=== PATIENT | female | born 2000 | race Caucasian/White ===

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

== ENCOUNTER 2022-01-18 18:08 | Observation (INO) ==
[2022-01-18] MEDS ORDERED: ONDANSETRON INJ 2 MG/ML 2 ML VIAL IV STA (18:29)
[2022-01-18] MEDS ORDERED: MoRPHine SULFATE 10 MG/ML CARP/VIAL IV STA (18:29)
[2022-01-18] MEDS ORDERED: ACETAMINOPHEN 1000 MG/100 ML IV IV STA (18:29)
[2022-01-18] MEDS ORDERED: LACTATED RINGER'S 1,000 ML IV STA (18:29)
[2022-01-18] MEDS ORDERED: PROMETHAZINE 12.5 MG/50.5 ML BAG IV STA (18:29)
[2022-01-18] MEDS ORDERED: SODIUM CHLORIDE 0.9% 1000ML 1,000 ML IV SCH (18:30)
[2022-01-18] MEDS ORDERED: KETOROLAC TROMETHAMINE 15 MG/ML VIAL IV STA (18:34)
--- NOTE | 2022-01-18 18:45 | Emergency Department Note ---
Impression & Plan Bilateral flank pain, Vomiting, Acute dehydration, Fever, Hypomagnesemia, Failure of outpatient treatment, Tachycardia ED Provider Note NAME: YUE LEONARDO AGE: 21 SEX: F : 2000 ARRIVES VIA: Walk-In INFORMANT: [Patient][family] ED PROVIDER(S): [Blaise Plasencia MD] CHIEF COMPLAINT: Vomiting HISTORY OF PRESENT ILLNESS: The patient is a 21-year-old female who presents to the ER with 5 days of vomiting, fever, stuffy nose, sore throat and chills. She also had right flank pain that has now spread to both flanks. The pain in the back is severe. The patient was seen here early this morning/last night. CT of the abdomen and pelvis was unremarkable. White count was 13. Strep testing, viral testing was unremarkable. She was diagnosed with a likely generalized viral illness. She did receive IV saline during her stay, she was given pain medication. She left feeling improved. When the patient returned home, she began to feel ill again. She began vomiting and she has vomited all day. She now has severe back pain that is a 10/10. She has a stuffy nose. She is nauseated. She feels dehydrated. She has not been able to keep any medications down. As per the patient's family, she had a similar episode to today's a month or so ago, she required a hospital stay, nothing was found to explain her presentation, her illness was diagnosed as viral. REVIEW OF SYSTEMS: See HPI for pertinent positives and negatives. A total of ten systems were reviewed and were otherwise negative. PMHx/PSHx: See Below SOCIAL HISTORY: See Below. PHYSICAL EXAM: GENERAL: Patient is in distressed, screaming, vomiting. HEENT: No acute trauma, normocephalic atraumatic, mucous membranes moist, significant nasal congestion, no scleral icterus. Throat is mildly erythematous without exudate. NECK: No stridor, moderate bilateral anterior cervical adenopathy, no meningismus, trachea is midline. LUNGS: Clear to auscultation bilaterally, no wheeze, no rhonchi, breath sounds equal. Hyperventilating. HEART: Tachycardic, no murmurs, regular rhythm. ABDOMEN: Soft, mildly diffusely tender, bowel sounds positive, no hernias, no peritonitis. EXTREMITIES: No cyanosis or edema, full range of motion of all the joints without pain or difficulty, no signs for acute trauma. NEUROLOGIC: Oriented x 3, no acute motor or sensory deficits, no focal weakness. SKIN: No rash, no jaundice, no diaphoresis. Back: Tender about the mid flank area bilaterally. No rash. DIFFERENTIAL DIAGNOSIS: Pyelonephritis, viral illness, dehydration, rhabdomyolysis, renal or liver failure, pneumonia, electrolyte imbalance, anemia, UTI, , cyclic vomit ing syndrome, among others. EMERGENCY DEPARTMENT COURSE/PROCEDURES: ECG: Indication was tachycardia. The ECG shows a sinus tachycardia with some baseline artifact. The rate is 125. There is no ST elevation, no PVCs P the QTc is 458 Continuous Cardiac Monitoring: An order was placed for continuous cardiac monitoring. The monitor shows a rate of 136 with sinus tachycardia. Critical Care Note: I have personally spent 46 minutes of critical care time in the direct management of this patient. This includes bedside care, interpretation of diagnostic studies, and testing, discussion with consultants, patient, and family members, and other required patient management activities. This 46 minutes is in excess of all separately billable procedures. MEDICAL DECISION MAKING: There was a mild leukocytosis at 13,000, this could be consistent with infection or the stress of her situation. There is a normal hemoglobin and platelet count. Renal panel testing showed a lower CO2 and a slight anion gap. Magnesium was low at 1.6. No kidney failure. Total CK was not elevated. No concerning liver enzyme elevation. The patient appeared to be in a euthyroid state. ECG showed a sinus tachycardia, no obvious ischemia. Cardiac enzyme testing x1 is not consistent with acute cardiac injury. Urinalysis showed ketones consistent with dehydration, no infection. testing returned negative. Urine tox was negative. Bio fire screening showed adenovirus. Chest x-ray did not show pneumonia or CHF. On exam, the patient was in significant distress, vomiting, screaming in pain. She was tachycardic. The patient was aggressively managed. She received IV saline 1 L. She was given IV lactated Ringer's 1 L. She was given IV Phenergan, IV Zofran, IV morph ine. She was given IV magnesium and IV Toradol. She received IV ceftriaxone as antibiotic coverage. The patient looks markedly improved, her tachycardia has resolved. She is much more comfortable and no longer vomiting. The patient requires a hospital stay. She requires further IV hydration and further care. She appears to be having a severe reaction from this adenovirus infection. I did speak with the patient and her mother, the on-call hospitalist was consulted. Past Med/Surg History Medical History No significant past medical history Surgical History History of chest tube placement as a child Social History Smoking Status: Never smoker Hx Alcohol Use: Yes Alcohol type: beer, wine and hard liquor Hx Substance Use: No Preferred Language: Czech Communication Ability: Effective Judge Clerk Required: No Beliefs That Will Affect Care: None Current Living Situation: Other Current Living Situation Comment: with roommate Feels Safe at Home: Yes Safety Concerns: Feels Safe At This Time Allergies Allergies Allergy/AdvReac Type Severity Reaction Status Date / Time doxycycline Allergy Intermediate Rash Verified 01/18/22 01:10 lactose Allergy Intermediate Gastrointestinal Verified 01/18/22 01:10 Upset Home Meds Home Medications Medication Instructions Recorded Confirmed norgestimate 0.18 mg/0.215 mg/0.25 1 tab PO DAILY 01/18/22 01/18/22 mg-ethinyl estradiol 25 mcg tablet (Tri-Lo-Radha) Previous Rx's Medication Instructions Recorded ondansetron HCl 4 mg tablet 4 mg PO Q8H PRN 3 Days #9 tab 01/18/22 Results & Data (ED) Vital Signs Vital Signs - 24 hr 01/18/22 18:14 01/18/22 18:54 01/18/22 19:57 Temperature 37.6 C H Temperature Source Temporal Artery Scan Pulse Rate 143 H 122 H 92 H Respiratory Rate 22 20 16 Respiratory Effort / Characteristics Non-Labored Spontaneous Respiratory Depth Normal Blood Pressure 116/77 119/73 107/57 L Blood Pressure Mean 90 88 73 Blood Pressure Position Sitting Pulse Oximetry 93 100 98 Oxygen Delivery Method Room Air Sepsis Recent Fever Within 48 Hours Yes Sepsis New/Unexplained Change in Mental Status No Sepsis Action Taken by Nursing Physician Notified 01/18/22 20:00 01/18/22 20:30 01/18/22 21:00 Temperature Temperature Source Pulse Rate 91 H 89 78 Respiratory Rate 16 18 16 Respiratory Effort / Characteristics Respiratory Depth Blood Pressure 104/56 L 98/50 L 101/60 Blood Pressure Mean 72 66 73 Blood Pressure Position Pulse Oximetry 99 99 97 Oxygen Delivery Method Sepsis Recent Fever Within 48 Hours Sepsis New/Unexplained Change in Mental Status Sepsis Action Taken by Nursing 01/18/22 21:30 01/18/22 22:00 Temperature Temperature Source Pulse Rate 92 H 78 Respiratory Rate 18 16 Respiratory Effort / Characteristics Respiratory Depth Blood Pressure 99/59 L 99/50 L Blood Pressure Mean 72 66 Blood Pressure Position Pulse Oximetry 98 96 Oxygen Delivery Method Sepsis Recent Fever Within 48 Hours Sepsis New/Unexplained Change in Mental Status Sepsis Action Taken by Longterm Medications Current Medication List: was personally reviewed by me Laboratory Data Attestation: I reviewed the patient's lab results. Result diagrams: 01/18/22 18:41 01/18/22 18:41 Lab Results 01/18/22 01/18/22 01/18/22 Range/Units 18:41 18:41 18:41 WBC 13.21 H (4.8-10.8) K/uL RBC 4.27 (4.2-5.4) M/uL Hgb 13.4 (12.0-16.0) g/dL Hct 36.9 L (37-47) % MCV 86.4 (80-100) fL MCH 31.4 (25-34) pg MCHC 36.3 H (32-36) g/dL RDW Std Deviation 39.7 (36.4-46.3) fL RDW Coeff of Juan 12.4 (11.5-14.5) % Plt Count 345 (130-400) K/uL MPV 10.3 (7.4-10.4) fL Immature Gran % (Auto) 0.4 % Neut % (Auto) 72.6 % Lymph % (Auto) 19.9 % Dewey % (Auto) 6.6 % Eos % (Auto) 0.3 % Baso % (Auto) 0.2 % Neut # (Auto) 9.59 H (1.4-6.5) K/uL Lymph # (Auto) 2.63 (1.2-3.4) K/uL Dewey # (Auto) 0.87 H (0.11-0.59) K/uL Eos # (Auto) 0.04 (0-0.5) K/uL Baso # (Auto) 0.03 (0-0.2) K/uL Immature Gran # (Auto) 0.05 H (0.00-0.02) K/uL Sodium 136 (136-145) mmol/L Potassium 3.6 (3.5-5.1) mmol/L Chloride 99 (98-107) mmol/L Carbon Dioxide 20 L (21-32) mmol/L Anion Gap 17 H (3-11) BUN 6 (6-23) mg/dl Creatinine 0.66 (0.6-1.2) mg/dl Est Cr Clr Drug Dosing 123.4 ml/min Est GFR ( Amer) 148.4 ml/min Est GFR (Non-Af Amer) 128.1 ml/min BUN/Creatinine Ratio 9.1 L (10-20) Glucose 85 (70-99(Fasting)) mg/dl Lactate (0.4-2.0) mmol/L Calcium 9.2 (8.5-10.1) mg/dl Magnesium 1.6 L (1.7-2.4) mg/dl Total Bilirubin 0.5 (0.2-1.0) mg/dl AST 19 (13-39) U/L ALT 11 (7-52) U/L Alkaline Phosphatase 49 (34-104) U/L Total Creatine Kinase 173 (26-192) U/L Troponin I < 0.03 (0-0.04) ng/ml Total Protein 7.6 (6.0-8.3) gm/dl Albumin 4.2 (3.4-5.0) gm/dl Globulin 3.4 (2.5-4.0) gm/dl Albumin/Globulin Ratio 1.2 (0.9-2) TSH (0.300-4.500) uIu/ml Urine Color Urine Appearance (Clear) Urine pH (4.5-7.5) Ur Specific [place] (1.000-1.030) Urine Protein (Negative) Urine Glucose (UA) (Negative) Urine Ketones (Negative) Urine Blood (Negative) Urine Nitrite (Negative) Urine Bilirubin (Negative) Urine Urobilinogen (Negative) Ur Leukocyte Esterase (Negative) Urine WBC (Auto) (0-5) /hpf Urine RBC (Auto) (0-4) /hpf U Hyaline Cast (Auto) (0-5) /lpf U Epithel Cells (Auto) (0-5) /lpf Urine Bacteria (Auto) (Negative) Ur Renal Epithelial Cell Urine Test (Negative) Urine Opiates Screen (Neg) Ur Methadone, Qual (Neg) Urine Barbiturates (Neg) Ur Phencyclidine (PCP) (Neg) U Amphetamin/Meth Scrn (Neg) MDMA (Ecstasy) Screen (Neg) U Benzodiazepines Scrn (Neg) Ur Cocaine Metabolite (Neg) U Marijuana (THC) Screen (Neg) Adenovirus (PCR) (NotDetected) B. pertussis DNA (PCR) (NotDetected) B.parapertussis DNA PCR (NotDetected) Lyme Disease IgG Ab Negative (Negative) Lyme Disease IgM Ab Negative (Negative) C. pneumoniae DNA (PCR) (NotDetected) Coronavirus OC43 (PCR) (NotDetected) Coronavirus HKU1 (PCR) (NotDetected) Coronavirus 229E (PCR) (NotDetected) SARS-CoV-2 (PCR) (NotDetected) Coronavirus NL63 (PCR) (NotDetected) Human Metapneumovir PCR (NotDetected) Influenza Type A (PCR) (NotDetected) Influenza Type B (PCR) (NotDetected) M. pneumoniae (PCR) (NotDetected) Parainfluenza 1 (PCR) (NotDetected) Parainfluenza 2 (PCR) (NotDetected) Parainfluenza 3 (PCR) (NotDetected) Parainfluenza 4 (PCR) (NotDetected) RSV (PCR) (NotDetected) Entero/Rhino (PCR) (NotDetected) 01/18/22 01/18/22 01/18/22 Range/Units 18:41 19:23 19:28 WBC (4.8-10.8) K/uL RBC (4.2-5.4) M/uL Hgb (12.0-16.0) g/dL Hct (37-47) % MCV (80-100) fL MCH (25-34) pg MCHC (32-36) g/dL RDW Std Deviation (36.4-46.3) fL RDW Coeff of Juan (11.5-14.5) % Plt Count (130-400) K/uL MPV (7.4-10.4) fL Immature Gran % (Auto) % Neut % (Auto) % Lymph % (Auto) % [place]wey % (Auto) % Eos % (Auto) % Baso % (Auto) % Neut # (Auto) (1.4-6.5) K/uL Lymph # (Auto) (1.2-3.4) K/uL [place]wey # (Auto) (0.11-0.59) K/uL Eos # (Auto) (0-0.5) K/uL Baso # (Auto) (0-0.2) K/uL Immature Gran # (Auto) (0.00-0.02) K/uL Sodium (136-145) mmol/L Potassium (3.5-5.1) mmol/L Chloride (98-107) mmol/L Carbon Dioxide (21-32) mmol/L Anion Gap (3-11) BUN (6-23) mg/dl Creatinine (0.6-1.2) mg/dl Est Cr Clr Drug Dosing ml/min Est GFR ( Amer) ml/min Est GFR (Non-Af Amer) ml/min BUN/Creatinine Ratio (10-20) Glucose (70-99(Fasting)) mg/dl Lactate 0.7 (0.4-2.0) mmol/L Calcium (8.5-10.1) mg/dl Magnesium (1.7-2.4) mg/dl Total Bilirubin (0.2-1.0) mg/dl AST (13-39) U/L ALT (7-52) U/L Alkaline Phosphatase (34-104) U/L Total Creatine Kinase (26-192) U/L Troponin I (0-0.04) ng/ml Total Protein (6.0-8.3) gm/dl Albumin (3.4-5.0) gm/dl Globulin (2.5-4.0) gm/dl Albumin/Globulin Ratio (0.9-2) TSH 1.200 (0.300-4.500) uIu/ml Urine Color Urine Appearance (Clear) Urine pH (4.5-7.5) Ur Specific [place] (1.000-1.030) Urine Protein (Negative) Urine Glucose (UA) (Negative) Urine Ketones (Negative) Urine Blood (Negative) Urine Nitrite (Negative) Urine Bilirubin (Negative) Urine Urobilinogen (Negative) Ur Leukocyte Esterase (Negative) Urine WBC (Auto) (0-5) /hpf Urine RBC (Auto) (0-4) /hpf U Hyaline Cast (Auto) (0-5) /lpf U Epithel Cells (Auto) (0-5) /lpf Urine Bacteria (Auto) (Negative) Ur Renal Epithelial Cell Urine Test (Negative) Urine Opiates Screen (Neg) Ur Methadone, Qual (Neg) Urine Barbiturates (Neg) Ur Phencyclidine (PCP) (Neg) U Amphetamin/Meth Scrn (Neg) MDMA (Ecstasy) Screen (Neg) U Benzodiazepines Scrn (Neg) Ur Cocaine Metabolite (Neg) U Marijuana (THC) Screen (Neg) Adenovirus (PCR) DETECTED A* (NotDetected) B. pertussis DNA (PCR) Not Detected (NotDetected) B.parapertussis DNA PCR Not Detected (NotDetected) Lyme Disease IgG Ab (Negative) Lyme Disease IgM Ab (Negative) C. pneumoniae DNA (PCR) Not Detected (NotDetected) Coronavirus OC43 (PCR) Not Detected (NotDetected) Coronavirus HKU1 (PCR) Not Detected (NotDetected) Coronavirus 229E (PCR) Not Detected (NotDetected) SARS-CoV-2 (PCR) Not Detected (NotDetected) Coronavirus NL63 (PCR) Not Detected (NotDetected) Human Metapneumovir PCR Not Detected (NotDetected) Influenza Type A (PCR) Not Detected (NotDetected) Influenza Type B (PCR) Not Detected (NotDetected) M. pneumoniae (PCR) Not Detected (NotDetected) Parainfluenza 1 (PCR) Not Detected (NotDetected) Parainfluenza 2 (PCR) Not Detected (NotDetected) Parainfluenza 3 (PCR) Not Detected (NotDetected) Parainfluenza 4 (PCR) Not Detected (NotDetected) RSV (PCR) Not Detected (NotDetected) Entero/Rhino (PCR) Not Detected (NotDetected) 01/18/22 01/18/22 01/18/22 Range/Units 20:13 20:13 20:13 WBC (4.8-10.8) K/uL RBC (4.2-5.4) M/uL Hgb (12.0-16.0) g/dL Hct (37-47) % MCV (80-100) fL MCH (25-34) pg MCHC (32-36) g/dL RDW Std Deviation (36.4-46.3) fL RDW Coeff of Juan (11.5-14.5) % Plt Count (130-400) K/uL MPV (7.4-10.4) fL Immature Gran % (Auto) % Neut % (Auto) % Lymph % (Auto) % [place] % (Auto) % Eos % (Auto) % Baso % (Auto) % Neut # (Auto) (1.4-6.5) K/uL Lymph # (Auto) (1.2-3.4) K/uL [place] # (Auto) (0.11-0.59) K/uL Eos # (Auto) (0-0.5) K/uL Baso # (Auto) (0-0.2) K/uL Immature Gran # (Auto) (0.00-0.02) K/uL Sodium (136-145) mmol/L Potassium (3.5-5.1) mmol/L Chloride (98-107) mmol/L Carbon Dioxide (21-32) mmol/L Anion Gap (3-11) BUN (6-23) mg/dl Creatinine (0.6-1.2) mg/dl Est Cr Clr Drug Dosing ml/min Est GFR ( Amer) ml/min Est GFR (Non-Af Amer) ml/min BUN/Creatinine Ratio (10-20) Glucose (70-99(Fasting)) mg/dl Lactate (0.4-2.0) mmol/L Calcium (8.5-10.1) mg/dl Magnesium (1.7-2.4) mg/dl Total Bilirubin (0.2-1.0) mg/dl AST (13-39) U/L ALT (7-52) U/L Alkaline Phosphatase (34-104) U/L Total Creatine Kinase (26-192) U/L Troponin I (0-0.04) ng/ml Total Protein (6.0-8.3) gm/dl Albumin (3.4-5.0) gm/dl Globulin (2.5-4.0) gm/dl Albumin/Globulin Ratio (0.9-2) TSH (0.300-4.500) uIu/ml Urine Color Dark Yellow Urine Appearance Clear (Clear) Urine pH 6.0 (4.5-7.5) Ur Specific [place] 1.029 (1.000-1.030) Urine Protein 2+ H (Negative) Urine Glucose (UA) Negative (Negative) Urine Ketones 4+ H (Negative) Urine Blood Trace H (Negative) Urine Nitrite Negative (Negative) Urine Bilirubin Negative (Negative) Urine Urobilinogen Negative (Negative) Ur Leukocyte Esterase Negative (Negative) Urine WBC (Auto) 10-30 H (0-5) /hpf Urine RBC (Auto) 0-4 (0-4) /hpf U Hyaline Cast (Auto) 10-30 H (0-5) /lpf U Epithel Cells (Auto) >30 H (0-5) /lpf Urine Bacteria (Auto) Negative (Negative) Ur Renal Epithelial Cell Not Reportable Urine Test Negative (Negative) Urine Opiates Screen Neg (Neg) Ur Methadone, Qual Neg (Neg) Urine Barbiturates Neg (Neg) Ur Phencyclidine (PCP) Neg (Neg) U Amphetamin/Meth Scrn Neg (Neg) MDMA (Ecstasy) Screen Neg (Neg) U Benzodiazepines Scrn Neg (Neg) Ur Cocaine Metabolite Neg (Neg) U Marijuana (THC) Screen Neg (Neg) Adenovirus (PCR) (NotDetected) B. pertussis DNA (PCR) (NotDetected) B.parapertussis DNA PCR (NotDetected) Lyme Disease IgG Ab (Negative) Lyme Disease IgM Ab (Negative) C. pneumoniae DNA (PCR) (NotDetected) Coronavirus OC43 (PCR) (NotDetected) Coronavirus HKU1 (PCR) (NotDetected) Coronavirus 229E (PCR) (NotDetected) SARS-CoV-2 (PCR) (NotDetected) Coronavirus NL63 (PCR) (NotDetected) Human Metapneumovir PCR (NotDetected) Influenza Type A (PCR) (NotDetected) Influenza Type B (PCR) (NotDetected) M. pneumoniae (PCR) (NotDetected) Parainfluenza 1 (PCR) (NotDetected) Parainfluenza 2 (PCR) (NotDetected) Parainfluenza 3 (PCR) (NotDetected) Parainfluenza 4 (PCR) (NotDetected) RSV (PCR) (NotDetected) Entero/Rhino (PCR) (NotDetected) Administered Medications Acetaminophen (Acetaminophen 325 Mg Tab) 650 mg PO Q4H PRN PRN Reason: Pain or Fever Stop: 02/17/22 23:13 Last Admin: 01/18/22 23:56 Dose: 650 mg Documented by: [id number] Sodium Chloride (Nss 1000ml) 1,000 mls @ 100 mls/hr IV .Q10H JUAN Stop: 01/19/22 18:29 Last Admin: 01/18/22 23:56 Dose: 100 mls/hr Documented by: [id number] Ondansetron HCl (Ondansetron Inj 2 Mg/Ml 2 Ml Vial) 4 mg IV Q6H PRN PRN Reason: Nausea Stop: 02/17/22 23:13 Last Admin: 01/18/22 23:56 Dose: 4 mg Documented by: [id number] Discontinued Medications Acetaminophen (Acetaminophen 1000 Mg/100 Ml Iv) 1,000 mg IV NOW STA Stop: 01/18/22 18:30 Last Admin: 01/18/22 19:27 Dose: 1,000 mg Documented by: [id number] Sodium Chloride (Nss 1000ml) 1,000 mls @ 999 mls/hr IV .Q1H1M JUAN Stop: 01/18/22 19:30 Last Infusion: 01/18/22 20:02 Dose: 0 mls/hr Documented by: [id number] Admin: 01/18/22 18:56 Dose: 999 mls/hr Documented by: [id number] Promethazine HCl (Phenergan) 12.5 mg in 50.5 mls @ 202 mls/hr IV NOW STA Stop: 01/18/22 18:43 Last Infusion: 01/18/22 19:28 Dose: 0 mls/hr Documented by: [id number] Admin: 01/18/22 18:56 Dose: 202 mls/hr Documented by: [id number] Lactated Ringer's (Lr) 1,000 mls @ 999 mls/hr IV .Q1H1M STA Stop: 01/18/22 19:29 Last Infusion: 01/18/22 20:43 Dose: 0 mls/hr Documented by: [id number] Admin: 01/18/22 19:32 Dose: 999 mls/hr Documented by: [id number] Magnesium Sulfate/Dextrose (Magnesium Sulfate / D5w) 1 gm in 100 mls @ 100 mls/hr IV NOW STA Stop: 01/18/22 20:23 Last Infusion: 01/18/22 22:07 Dose: 0 mls/hr Documented by: [id number] Admin: 01/18/22 21:07 Dose: 100 mls/hr Documented by: [id number] Ceftriaxone Sodium (Rocephin) 1,000 mg in 50 mls @ 100 mls/hr IV NOW STA Stop: 01/18/22 19:53 Last Infusion: 01/18/22 20:43 Dose: 0 mls/hr Documented by: [id number] Admin: 01/18/22 20:07 Dose: 100 mls/hr Documented by: [id number] Ketorolac Tromethamine (Ketorolac Tromethamine 15 Mg/Ml Vial) 15 mg IV NOW STA Stop: 01/18/22 18:35 Last Admin: 01/18/22 18:56 Dose: 15 mg Documented by: [id number] Morphine Sulfate (Morphine Sulfate 10 Mg/Ml Carp/Vial) 6 mg IV NOW STA Stop: 01/18/22 18:30 Last Admin: 01/18/22 18:56 Dose: 6 mg Documented by: [id number] Ondansetron HCl (Ondansetron Inj 2 Mg/Ml 2 Ml Vial) 4 mg IV NOW STA Stop: 01/18/22 18:30 Last Admin: 01/18/22 18:56 Dose: 4 mg Documented by: [id number] Imaging Data Radiologist's Impression: Chest X-Ray 01/18/22 18:30 SINGLE VIEW CHEST CLINICAL HISTORY: Generalized weakness. FINDINGS: An AP, portable, upright chest radiograph is compared to chest x-ray and chest CT dated 11/21/2021. The cardiomediastinal silhouette is unremarkable. The lungs and pleural spaces are clear. No pneumothorax is seen. The bony thorax is grossly intact. IMPRESSION: No active disease in the chest. ACT 112: Negative or not required by law. Electronically signed by: Blaise Graves M.D. 01/18/2022 7:44 PM Discharge Plan Visit Data Chief Complaint: Vomiting Stated Complaint: COUGH, VOMITING, NAUSEA, CONGESTION ED Provider: Blaise Plasencia Discharge Problem: Bilateral flank pain, Vomiting, Acute dehydration, Fever, Hypomagnesemia, Failure of outpatient treatment, Tachycardia Patient Disposition: Admitted As Inpatient Condition: Fair Discharge Instructions Interventions: ED Discharge Assessment Last Done: 01/18/22 22:36
[2022-01-18 19:18] LABS: Troponin I < 0.03 ng/ml (0-0.04)
[2022-01-18 19:22] LABS: Alanine Aminotransferase 11 U/L (7-52); Albumin Globulin Ratio 1.2 (0.9-2); Albumin Level 4.2 gm/dl (3.4-5.0); Alkaline Phosphatase 49 U/L (34-104); Anion Gap 17 (3-11); Aspartate Aminotransferase 19 U/L (13-39); BUN Creatinine Ratio 9.1 (10-20); Bilirubin,Total 0.5 mg/dl (0.2-1.0); Blood Urea Nitrogen 6 mg/dl (6-23); Calcium 9.2 mg/dl (8.5-10.1); Carbon Dioxide 20 mmol/L (21-32); Chloride 99 mmol/L (98-107); Creatine Kinase 173 U/L (26-192); Creatinine Clr Calc Pharmacy 123.4 ml/min; Est GFR (African American) 148.4 ml/min; Est GFR (Non-African American) 128.1 ml/min; Globulin 3.4 gm/dl (2.5-4.0); Glucose 85 mg/dl (70-99(Fasting)); Magnesium 1.6 mg/dl (1.7-2.4); Potassium 3.6 mmol/L (3.5-5.1); Sodium 136 mmol/L (136-145); Total Protein 7.6 gm/dl (6.0-8.3)
[2022-01-18] MEDS ORDERED: cefTRIAXone SODIUM 1,000 MG/50 ML BAG IV STA (19:24)
[2022-01-18] MEDS ORDERED: MAGNESIUM SULFATE / D5W 1 GM/100 ML BAG IV STA (19:24)
[2022-01-18 19:34] LABS: Lyme Ab IgG w/WB Rflx Negative (Negative); Lyme Ab IgM w/WB Rflx Negative (Negative)
--- NOTE | 2022-01-18 19:46 | XRay Report ---
SINGLE VIEW CHEST CLINICAL HISTORY: Generalized weakness. FINDINGS: An AP, portable, upright chest radiograph is compared to chest x-ray and chest CT dated 11/11. The cardiomediastinal silhouette is unremarkable. The lungs and pleural spaces are clear. No pneumothorax is seen. The bony thorax is grossly intact. IMPRESSION: No active disease in the chest. ACT 112: Negative or not required by law. Electronically signed by: Blaise Graves M.D. 01/18/2022 7:44 PM
[2022-01-18 19:55] LABS: Hematocrit (blood only) 36.9 % (37-47); Hemoglobin 13.4 g/dL (12.0-16.0); Mean Corpuscular Hemoglobin 31.4 pg (25-34); Mean Corpuscular Hgb Conc 36.3 g/dL (32-36); Mean Corpuscular Volume 86.4 fL (80-100); Mean Platelet Volume 10.3 fL (7.4-10.4); Platelet Count 345 K/uL (130-400); RDW Coefficient of Variation 12.4 % (11.5-14.5); RDW Standard Deviation 39.7 fL (36.4-46.3); Red Blood Count 4.27 M/uL (4.2-5.4); White Blood Count 13.21 K/uL (4.8-10.8)
[2022-01-18 20:12] LABS: Basophils # (auto) 0.03 K/uL (0-0.2); Basophils % (auto) 0.2 %; Eosinophils # (auto) 0.04 K/uL (0-0.5); Eosinophils % (auto) 0.3 %; Immature Granulocytes # (auto) 0.05 K/uL (0.00-0.02); Immature Granulocytes % (auto) 0.4 %; Lymphocytes # (auto) 2.63 K/uL (1.2-3.4); Lymphocytes % (auto) 19.9 %; Monocytes # (auto) 0.87 K/uL (0.11-0.59); Monocytes % (auto) 6.6 %; Neutrophils # (auto) 9.59 K/uL (1.4-6.5); Neutrophils % (auto) 72.6 %
--- NOTE | 2022-01-18 20:29 | History & Physical Report ---
Date of Service January 18, 2022 Assessment & Plan (1) Intractable nausea and vomiting: Plan: 21 y/o F who presents for intractable N/V and low back pain. Patient is adenovirus positive. This is the most likely etiology of her symptoms. SIRS 2/4 (HR and WBC). Urine and blood cultures pending. Urine Hcg sent. UA w/ new WBCs compared to yesterday's sample. Urine GC/chlamydia sent. PID considered, but lower suspicion at this time in absence of symptoms. Hx not consistent w/ cannabanoid hyperemesis. Neg CT abd/pelv from 01/18/22 (previous ED visit) reassuring. Lower suspicion for pyelo. (2) Intractable low back pain: Plan: - see above. also considered msk etiology 2/2 vomiting/retching. no kidney pathology or hydronephrosis noted on CT abd/pelv (3) Sinus tachycardia: Plan: The sinus tach resolved after IV fluids. Most likely etiology was dehydration from vomiting. (4) Oral contraceptive use: Plan: - currently interrupted. Patient plans to restart in outpatient setting. Plan: FEN/GI: full liquids. Advance as tolerated. NSS 100ml/hr ppx: SCDs code: full dispo: med/tele History of Present Illness Chief Complaint: intractable nausea, vomiting, and low back pain Primary Care Provider: [facility] 21 y/o F who presents for N/V and flank pain, worsening x several days. She was seen in the ED yesterday and discharged home. She returns today for intractable symptoms. She rated her low back/bilat flank pain as 10/10. Bilat flank pain stabbing. Constant. Worse w/ coughing and sneezing. She had similar symptoms during the 11/2021 admission. She notes more URI symptoms and emesis (nonbloody, but intermittently green) than that visit. She has yellow nasal drainage.In contrast to last visit, she does not have pelvic discomfort. She was recommended to f/u w/ urogynaecologist after last admission, but has not had in-person exam. The brand of her OCP has recently been changed. She notes that all her symptoms had resolved from the last visit. No abd pain. + subj fever/chills. No cp, urinary symptoms. No urinary or vaginal symptoms. Has had covid vaccines. She was tachycardic to 150 at ED arrival. Occasional etoh and mj use. Smoked once since Nov. No concerns for stis. sexually active. No vaginal discharge changes. ED course: nausea medications, fluids, Rocephin, morphine Allergies Allergy/AdvReac Type Severity Reaction Status Date / Time doxycycline Allergy Intermediate Rash Verified 01/18/22 01:10 lactose Allergy Intermediate Gastrointestinal Verified 01/18/22 01:10 Upset Home Medications Medication Instructions Recorded Confirmed Type norgestimate 0.18 mg/0.215 mg/0.25 1 tab PO DAILY 01/18/22 01/18/22 History mg-ethinyl estradiol 25 mcg tablet (Tri-Lo-Radha) ondansetron HCl 4 mg tablet 4 mg PO Q8H PRN 3 Days #9 tab 01/18/22 01/18/22 Rx Past Med/Surg History Medical History No significant past medical history Surgical History History of chest tube placement as a child Social History Smoking Status: Never smoker Hx Alcohol Use: Yes Alcohol type: beer, wine and hard liquor Hx Substance Use: No Preferred Language: [place]erratian Communication Ability: Effective 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 sinus congestion Cardiovascular: Denies chest pain, palpitations Respiratory: Denies shortness of breath Gastrointestinal: Denies abdominal pain, constipation. Mild diarrhea. No bloody stool. Genitourinary: Denies urinary symptoms including dysuria Musculoskeletal: Denies weakness, muscle aches/pain, joint aches/pain Neurological: Denies numbness, tingling, focal weakness. Slight lighheadedness. Moderate headache. No migraine. Physical Exam Physical Exam: General: Grossly A&O. NAD. Cooperative. Appears slightly uncomfortable. HEENT: Atraumatic, normocephalic. EOMI. PERRL. No cervical LAD. Oropharynx w/ minimal erythema. No significant tonsillar swelling. Pulm: CTAB. -wheezes, -rales, -rhonchi. No respiratory distress. Cardiac: RRR, -mrg. No LE edema. Abdominal: Nondistended, soft. R abd ttp. Back: Diffuse low back ttp including flank area. Integ: Warm, dry intact. No rash. Results & Data Results & Data ([facility]) Vital Signs (Past 12 Hours) Vital Signs Temp Pulse Resp BP Pulse Ox 01/18/22 18:54 122 H 20 119/73 100 01/18/22 18:14 37.6 C H 143 H 22 116/77 93 Laboratory Results wbc 13.21. 3.Nov. UA w/ new elevation in wbc compared to previous day. Resp biofire pos for adenovirus. 01/18/22 18:41 01/18/22 18:41 Cardiac Enzymes 01/18/22 Range/Units 18:41 AST 19 (13-39) U/L Troponin I < 0.03 (0-0.04) ng/ml CBC 01/18/22 Range/Units 18:41 WBC 13.21 H (4.8-10.8) K/uL RBC 4.27 (4.2-5.4) M/uL Hgb 13.4 (12.0-16.0) g/dL Hct 36.9 L (37-47) % Plt Count 345 (130-400) K/uL Neut # (Auto) 9.59 H (1.4-6.5) K/uL Lymph # (Auto) 2.63 (1.2-3.4) K/uL [place] # (Auto) 0.87 H (0.11-0.59) K/uL Eos # (Auto) 0.04 (0-0.5) K/uL Baso # (Auto) 0.03 (0-0.2) K/uL Comprehensive Metabolic Panel 01/18/22 Range/Units 18:41 Sodium 136 (136-145) mmol/L Potassium 3.6 (3.5-5.1) mmol/L Chloride 99 (98-107) mmol/L Carbon Dioxide 20 L (21-32) mmol/L BUN 6 (6-23) mg/dl Creatinine 0.66 (0.6-1.2) mg/dl Glucose 85 (70-99(Fasting)) mg/dl Calcium 9.2 (8.5-10.1) mg/dl AST 19 (13-39) U/L ALT 11 (7-52) U/L Alkaline Phosphatase 49 (34-104) U/L Total Protein 7.6 (6.0-8.3) gm/dl Albumin 4.2 (3.4-5.0) gm/dl Intake and Output 01/18/22 01/18/22 01/18/22 06:59 14:59 22:59 Intake Total 2100.5 / 2100.5 Balance 2100.5 / 2100.5 Intake: IV 2100.5 / 2100.5 Lactated Ringer's 1,000 ml @ 1000 / 1000 999 mls/hr IV .Q1H1M STA Rx#: [id number] Promethazine 12.5 mg In 50.5 ml 50.5 / 50.5 @ 202 mls/hr IV NOW STA Rx#: [id number] Sodium Chloride 0.9% 1000ML 1, 1000 / 1000 000 ml @ 999 mls/hr IV .Q1H1M JUAN Rx#:[id number] cefTRIAXone SODIUM 1,000 mg In 50 / 50 50 ml @ 100 mls/hr IV NOW STA Rx#:[id number] Other: Weight 58.2 kg Weight Measurement Method Chair Scale Patient Weight 01/19/22 06:59 Weight 58.2 kg Diagnostic Findings Chest X-Ray 01/18/22 18:30 SINGLE VIEW CHEST CLINICAL HISTORY: Generalized weakness. FINDINGS: An AP, portable, upright chest radiograph is compared to chest x-ray and chest CT dated 11/21/2021. The cardiomediastinal silhouette is unremarkable. The lungs and pleural spaces are clear. No pneumothorax is seen. The bony thorax is grossly intact. IMPRESSION: No active disease in the chest. ACT 112: Negative or not required by law. Electronically signed by: Blaise Graves M.D. 01/18/2022 7:44 PM Code Status & VTE Plan Code Status full VTE Prophylaxis Plan VTE Prophylaxis will be ordered: Yes Supervising Physician Co-Signing Physician Notes Patient seen and examined, chart reviewed, case discussed with Dr. Davis and I agree with the assessment and plan as documented above. In brief, patient is a 21-year-old female with no significant past medical history presenting with nausea/vomiting and flank pain as well as URI symptoms. Patient tachycardic upon arrival which improved after IV fluids. Complaining of significant back pain. Mother is at bedside On exam patient is overall well appearing in no acute distress Skin warm, dry, no rashes or lesions Posterior pharynx is erythematous with white exudate on the tonsils bilaterally. Tongue is dry. Neck is supple + S1, S2, regular Lungs CTA Abdomen soft Labs and images reviewed Uncertain as to why patient is having such significant. URI symptoms most likely attributable to adenovirus. She is nontoxic in appearance Symptomatic management with IV fluids, Zofran, Tylenol -Follow cultures sent from ER Check GC chlamydia -Remainder as above Resident Activity Tracking Resident Involvement: Resident Care Provided Care Provided: Adult Hospital Medicine
[2022-01-18 20:31] LABS: Bordetella parapertussis PCR Not Detected (NotDetected); Bordetella pertussis PCR Not Detected (NotDetected); Chlamydia pneumoniae PCR Not Detected (NotDetected); Coronavirus 229E PCR Not Detected (NotDetected); Coronavirus CoV-2 (COVID19)PCR Not Detected (NotDetected); Coronavirus HKU1 PCR Not Detected (NotDetected); Coronavirus NL63 PCR Not Detected (NotDetected); Coronavirus OC43PCR Not Detected (NotDetected); Human Metapneumovirus PCR Not Detected (NotDetected); Influenza A PCR Not Detected (NotDetected); Influenza B PCR Not Detected (NotDetected); Mycoplasma pneumoniae PCR Not Detected (NotDetected); Parainfluenza Virus 1 PCR Not Detected (NotDetected); Parainfluenza Virus 2 PCR Not Detected (NotDetected); Parainfluenza Virus 3 PCR Not Detected (NotDetected); Parainfluenza Virus 4 PCR Not Detected (NotDetected); Respiratory Syncytial VirusPCR Not Detected (NotDetected); Rhinovirus/Enterovirus PCR Not Detected (NotDetected)
[2022-01-18 20:32] LABS: Adenovirus PCR DETECTED (NotDetected)
[2022-01-18 20:58] LABS: Appearance Urine Clear (Clear); Bacteria Urine Automated Negative (Negative); Bilirubin Urine Negative (Negative); Blood Urine Trace (Negative); Color Urine Dark Yellow; Epithelial Cell Urine Auto >30 /lpf (0-5); Glucose Urine UA Negative (Negative); Ketones Urine 4+ (Negative); Leukocyte Esterase Urine Negative (Negative); Nitrite Urine Negative (Negative); Protein Urine 2+ (Negative); RBC Urine Automated 0-4 /hpf (0-4); Specific Gravity Urine 1.029 (1.000-1.030); Urobilinogen Urine Negative (Negative)
[2022-01-18 21:15] LABS: Amphetamines+Metham, Urine Neg (Neg); Barbiturates, Urine Neg (Neg); Benzodiazepine, Urine Neg (Neg); Cocaine, Urine Neg (Neg); MDMA (Ecstacy), Urine Neg (Neg); Methadone, Urine Neg (Neg); Opiate, Urine Neg (Neg); Phencyclidine, Urine Neg (Neg)
[2022-01-18 22:26] LABS: Pregnancy Test, Urine Negative (Negative)
[2022-01-18] MEDS: SODIUM CHLORIDE 0.9% 1000ML 1,000 ML IV SCH (23:56)
[2022-01-18] MEDS: ACETAMINOPHEN 325 MG TAB PO PRN (23:56)
[2022-01-18] MEDS: ONDANSETRON INJ 2 MG/ML 2 ML VIAL IV PRN (23:56)
--- NOTE | 2022-01-19 02:50 | Billing Data ---
Date of Service January 18, 2022 Coding Level of Care Code 35115 Initial Inpt Care Lvl 2
[2022-01-19] MEDS: ACETAMINOPHEN 325 MG TAB PO PRN ×3 (05:26→18:10)
[2022-01-19] MEDS: ONDANSETRON INJ 2 MG/ML 2 ML VIAL IV PRN ×2 (05:53→10:16)
--- NOTE | 2022-01-19 07:11 | Hospitalist Progress Note ---
Date of Service January 19, 2022 Assessment & Plan (1) Intractable nausea and vomiting: Plan: 21 y/o F who presents for N/V and flank pain. Patient is adenovirus positive. This is the most likely etiology of her symptoms. SIRS 2/4 (HR and WBC). Urine and blood cultures pending. (2) Sinus tachycardia: Plan: ecg: The sinus tach resolved after IV fluids. Most likely etiology was dehydration from vomiting. Admission and Anticipated Discharge Date Admission Date: January 18, 2022 Review of Systems Review of Systems: See subjective Results & Data Results & Data ([facility]) Vital Signs (Past 12 Hours) Vital Signs Temp Pulse Pulse Pulse Resp BP BP 01/19/22 06:30 37 C 109 H 20 111/68 01/19/22 05:28 37.9 C H 132 H 12 01/19/22 04:16 36.9 C 89 16 102/64 01/18/22 23:56 78 01/18/22 23:16 36.7 C 16 01/18/22 22:00 78 16 99/50 L 01/18/22 21:30 92 H 18 99/59 L 01/18/22 21:00 78 16 101/60 01/18/22 20:30 89 18 98/50 L 01/18/22 20:00 91 H 16 104/56 L 01/18/22 19:57 92 H 16 107/57 L Pulse Ox 01/19/22 06:30 96 01/19/22 05:28 01/19/22 04:16 99 01/18/22 23:56 01/18/22 23:16 97 01/18/22 22:00 96 01/18/22 21:30 98 01/18/22 21:00 97 01/18/22 20:30 99 01/18/22 20:00 99 01/18/22 19:57 98
[2022-01-19 08:28] LABS: Basophils # (auto) 0.04 K/uL (0-0.2); Basophils % (auto) 0.4 %; Eosinophils # (auto) 0.15 K/uL (0-0.5); Eosinophils % (auto) 1.6 %; Hematocrit (blood only) 30.6 % (37-47); Hemoglobin 10.8 g/dL (12.0-16.0); Immature Granulocytes # (auto) 0.02 K/uL (0.00-0.02); Immature Granulocytes % (auto) 0.2 %; Lymphocytes # (auto) 1.87 K/uL (1.2-3.4); Lymphocytes % (auto) 19.7 %; Mean Corpuscular Hemoglobin 30.4 pg (25-34); Mean Corpuscular Hgb Conc 35.3 g/dL (32-36); Mean Corpuscular Volume 86.2 fL (80-100); Mean Platelet Volume 9.4 fL (7.4-10.4); Monocytes # (auto) 0.72 K/uL (0.11-0.59); Monocytes % (auto) 7.6 %; Neutrophils # (auto) 6.71 K/uL (1.4-6.5); Neutrophils % (auto) 70.5 %; Platelet Count 258 K/uL (130-400); RDW Coefficient of Variation 12.4 % (11.5-14.5); RDW Standard Deviation 39.9 fL (36.4-46.3); Red Blood Count 3.55 M/uL (4.2-5.4); White Blood Count 9.51 K/uL (4.8-10.8)
[2022-01-19] MEDS: SODIUM CHLORIDE 0.9% 1000ML 1,000 ML IV SCH ×2 (09:08→18:10)
[2022-01-19 09:25] LABS: Anion Gap 9 (3-11); BUN Creatinine Ratio 8.1 (10-20); Blood Urea Nitrogen 5 mg/dl (6-23); Carbon Dioxide 23 mmol/L (21-32); Chloride 105 mmol/L (98-107); Creatinine Clr Calc Pharmacy 131.3 ml/min; Est GFR (African American) > 150.0 ml/min; Est GFR (Non-African American) 130.7 ml/min; Glucose 81 mg/dl (70-99(Fasting)); Potassium 3.2 mmol/L (3.5-5.1); Sodium 137 mmol/L (136-145)
[2022-01-19] MEDS ORDERED: POTASSIUM CHLORIDE / WTR 10 MEQ/100 ML PLCT IV SCH (10:00)
[2022-01-19] MEDS ORDERED: CHLORASEPTIC 1.4% SOLN 180 ML BTL MT PRN (10:25)
[2022-01-19] MEDS ORDERED: COUGH DROP (SUGAR FREE) LOZ 24 LOZ/1 BOX BUCCAL PRN (10:27)
[2022-01-19] MEDS ORDERED: COUGH DROP (SUGAR FREE) LOZ 24 LOZ/1 BOX BUCCAL ONE (10:29)
[2022-01-19] MEDS ORDERED: POTASSIUM CHLORIDE CRTAB 20 MEQ TABCR PO STA (10:35)
--- NOTE | 2022-01-19 12:53 | Medical Student Progress Note ---
Date of Service January 19, 2022 Assessment & Plan (1) Intractable nausea and vomiting: Plan: Has improved with Zofran prior to meals. Likely etiology includes adenovirus. Zofran available PRN (2) Abdominal pain: Plan: Likely etiology includes adenovirus. Tylenol available PRN (3) Tachycardia: Plan: Likely due to dehydration from vomiting. Has improved to 80 bpm following IV normal saline. (4) Sore throat: Plan: Upper respiratory illness, likely due to adenovirus. Menthol lozenge and Phenol spray PRN. Plan: + Adenovirus Likely etiology of the nausea, vomiting, abdominal pain, and upper respiratory illness as other labs, UA, and CT of abdomen and pelvis were all normal. Blood cultures still pending as SIRS criteria 2/4 (HR and WBC count). Supportive care until vitals (heart rate) stabilize. FEN/GI: Regular diet. NSS 100ml/hr ppx: SCDs code: full dispo: med/tele Admission and Anticipated Discharge Date Admission Date: January 18, 2022 Supervising Attestation I personally examined the patient and verified all erickson points of history and exam, discussed case, and agree with decision making with Luc Morsera MS4 Still feeling fairly lousy. Still pain all over, still nausea and abdominal pain. A little bit better than last night but not a lot yet. Notes that before this year she was not frequently ill with infections. She blames living in her dorm. Vitals noted, in general she is awake and alert appears fatigued but otherwise no distress. HEENT normocephalic atraumatic mucous membranes moist. Breathing unlabored no accessory muscle use good effort. Skin shows no rashes no pallor or icterus. Adenovirus with sepsis present on admissionSIRS being tachycardia fever white count. Fortunately she seems to be stabilizing/improvingno clear indications for antibiotics at this timecontinue supportive care/fluids. Otherwise as above Yandy Watson is a 21 year old female brought into the ED 1 day prior for a 5 day history of nausea, vomiting, and flank pain and upper respiratory symptoms. In the ED she rated her pain a 10/10, worse with coughing/sneezing/vomiting. She last vomited around 6pm last night. Today her sore throat is worse and she continues to have abdominal pain. She has had some subjective fever and chills and some shortness of breath. She has not had a bowel movement for 1-2 days but has had decreased oral input. She has had not sick contacts. She was admitted in November for a similar generalized illness and treated with antibiotics. She does not have a history of frequent illnesses. Review of Systems Review of Systems: All systems reviewed & are unremarkable except as noted in HPI & below Physical Exam Physical Exam: General: Alert and oriented x3. No acute distress. Appears uncomfortable/ill. HEENT: No cervical LAD. Oropharynx w/ minimal erythema. Pulm: clear to auscultation, no wheezes/rales/rhonchi. No respiratory distress. Cardiac: regular rate/rhythm, no murmurs/rubs/gallops, pulses strong and equal Abdominal: Nondistended, soft. RUQ tenderness to palpation Integ: Warm, dry intact. No rash. Results & Data ([facility]) Vital Signs (Past 12 Hours) Vital Signs Temp Pulse Pulse Pulse Resp BP BP 01/19/22 15:35 80 01/19/22 10: 37.8 C H 96 H 18 116/69 01/19/22 07:31 113 H 01/19/22 06:30 37 C 109 H 20 111/68 01/19/22 05:28 37.9 C H 132 H 12 01/19/22 04:16 36.9 C 89 16 102/64 01/18/22 23:56 78 01/18/22 23:16 36.7 C 16 01/18/22 22:00 78 16 99/50 L 01/18/22 21:30 92 H 18 99/59 L 01/18/22 21:00 78 16 101/60 01/18/22 20:30 89 18 98/50 L 01/18/22 20:00 91 H 16 104/56 L 01/18/22 19:57 92 H 16 107/57 L 01/18/22 18:54 122 H 20 119/73 01/18/22 18:14 37.6 C H 143 H 22 116/77 Pulse Ox 01/19/22 15:35 01/19/22 10:22 99 01/19/22 07:31 01/19/22 06:30 96 01/19/22 05:28 01/19/22 04:16 99 01/18/22 23:56 01/18/22 23:16 97 01/18/22 22:00 96 01/18/22 21:30 98 01/18/22 21:00 97 01/18/22 20:30 99 01/18/22 20:00 99 01/18/22 19:57 98 01/18/22 18:54 100 01/18/22 18:14 93 Intake and Output 01/19/22 01/19/22 01/19/22 06:59 14:59 22:59 Intake Total 200 / 2400.5 945 / 945 Balance 200 / 2400.5 945 / 945 Intake: IV 945 / 945 Potassium Chloride / Wtr 10 meq 25 / 25 In 100 ml @ 100 mls/hr IV Q1H JUAN Rx#:[id number] Sodium Chloride 0.9% 1000ML 1, 920 / 920 000 ml @ 100 mls/hr IV .Q10H JUAN Rx#:[id number] Oral 200 / 200 Other: Other Intake Source SIPS Weight 61.5 kg 61.5 kg Weight Measurement Method Built in [facility] Patient Weight 01/20/22 06:59 Weight 61.5 kg
--- NOTE | 2022-01-19 16:42 | Billing Data ---
Date of Service January 19, 2022 Coding Level of Care Code 65680 Subseq Hosp Care Lvl 3
[2022-01-19] MEDS ORDERED: hydrOXYzine HCl 25 MG TAB PO PRN (18:20)
[2022-01-20] MEDS: SODIUM CHLORIDE 0.9% 1000ML 1,000 ML IV SCH (03:37)
--- NOTE | 2022-01-20 06:00 | Electrocardiogram Report ---
Test Reason : Blood Pressure : / mmHG Vent. Rate : 125 BPM Atrial Rate : 125 BPM P-R Int : 124 ms QRS Dur : 074 ms QT Int : 318 ms P-R-T Axes : 072 084 006 degrees QTc Int : 458 ms Poor data quality, interpretation may be adversely affected Sinus tachycardia Otherwise normal ECG No previous ECGs available Confirmed by Manas Go ([id number]) on 01/20/2022 6:00:21 AM Referred By: REFERRED SELF Confirmed By:Manas Go
[2022-01-20 09:39] LABS: Hematocrit (blood only) 32.3 % (37-47); Hemoglobin 11.1 g/dL (12.0-16.0); Mean Corpuscular Hemoglobin 30.1 pg (25-34); Mean Corpuscular Hgb Conc 34.4 g/dL (32-36); Mean Corpuscular Volume 87.5 fL (80-100); Mean Platelet Volume 9.5 fL (7.4-10.4); Platelet Count 275 K/uL (130-400); RDW Coefficient of Variation 12.7 % (11.5-14.5); RDW Standard Deviation 40.9 fL (36.4-46.3); Red Blood Count 3.69 M/uL (4.2-5.4)
[2022-01-20 09:49] LABS: Chlamydia Trach RNA NOT DETECTED (NOT DETECTED); GC (Neis gonorrhoeae) RNA NOT DETECTED (NOT DETECTED)
[2022-01-20 10:05] LABS: Basophils # (auto) 0.18 K/uL (0-0.2); Basophils % (auto) 2.8 %; Eosinophils # (auto) 0.42 K/uL (0-0.5); Eosinophils % (auto) 6.5 %; Immature Granulocytes # (auto) 0.03 K/uL (0.00-0.02); Immature Granulocytes % (auto) 0.5 %; Lymphocytes # (auto) 2.28 K/uL (1.2-3.4); Lymphocytes % (auto) 35.1 %; Monocytes # (auto) 0.69 K/uL (0.11-0.59); Monocytes % (auto) 10.6 %; Neutrophils % (auto) 44.5 %
[2022-01-20 10:24] LABS: Anion Gap 7 (3-11); BUN Creatinine Ratio 5.9 (10-20); Blood Urea Nitrogen 3 mg/dl (6-23); Calcium 8.2 mg/dl (8.5-10.1); Carbon Dioxide 25 mmol/L (21-32); Chloride 106 mmol/L (98-107); Creatinine Clr Calc Pharmacy 159.7 ml/min; Est GFR (African American) > 150.0 ml/min; Est GFR (Non-African American) 139.4 ml/min; Glucose 136 mg/dl (70-99(Fasting)); Potassium 3.2 mmol/L (3.5-5.1); Sodium 138 mmol/L (136-145)
[2022-01-20] MEDS ORDERED: POTASSIUM CHLORIDE CRTAB 20 MEQ TABCR PO STA (10:26)
--- NOTE | 2022-01-20 11:20 | Discharge Summary ---
Date of Service January 20, 2022 Admission HPI Per Admitting Provider 21 y/o F who presents for N/V and flank pain, worsening x several days. She was seen in the ED yesterday and discharged home. She returns today for intractable symptoms. She rated her low back/bilat flank pain as 10/10. Bilat flank pain stabbing. Constant. Worse w/ coughing and sneezing. She had similar symptoms during the 11/2021 admission. She notes more URI symptoms and emesis (nonbloody, but intermittently green) than that visit. She has yellow nasal drainage.In contrast to last visit, she does not have pelvic discomfort. She was recommended to f/u w/ receiver/laborer after last admission, but has not had in-person exam. The brand of her OCP has recently been changed. She notes that all her symptoms had resolved from the last visit. No abd pain. + subj fever/chills. No cp, urinary symptoms. No urinary or vaginal symptoms. Has had covid vaccines. She was tachycardic to 150 at ED arrival. Occasional etoh and mj use. Smoked once since Nov. No concerns for stis. sexually active. No vaginal discharge changes. ED course: nausea medications, fluids, Rocephin, morphine Principal Diagnosis Adenovirus Discharge Exam GENERAL: A&Ox3. NAD. HEENT: PERRL, EOMI. Moist mucous membranes. NECK: No JVD. No lymphadenopathy. CHEST/LUNGS: CTAB A/P. No crackles, wheezes, rales, rhonchi. HEART: RRR. No m/g/r. No carotid bruits. ABDOMEN: NT/ND, soft. BS+ x4 EXTREMITIES: No cyanosis, no clubbing, no edema SKIN: Warm and dry. No rashes or lesions. PSYCHIATRIC: Euthymic affect, no SI, no pressured speech, no hallucinations Discharge Data Allergies Allergy/AdvReac Type Severity Reaction Status Date / Time doxycycline Allergy Intermediate Rash Verified 01/18/22 01:10 lactose Allergy Intermediate Gastrointestinal Verified 01/18/22 01:10 Upset Consultations 01/18/22 20:15 ED Decision to Admit Stat Hospital Course (1) Intractable nausea and vomitin21 y/o F who presents for intractable N/V and low back pain. Patient is adenovirus positive. This is the most likely etiology of her symptoms Improved with IV hydration and antiemetics prn Will DC with prn zofran and instructed to continue PO hydration and advance diet as tolerated (2) Intractable low back pain: - see above. also considered msk etiology 2/2 vomiting/retching. no kidney pathology or hydronephrosis noted on CT abd/pelv - Resolved at DC (3) Sinus tachycardia: The sinus tach resolved after IV fluids. Most likely etiology was dehydration from vomiting. (4) Oral contraceptive use: - currently interrupted. Patient plans to restart in outpatient setting. Dispo: Home Total Time Total Time Spent Total Time Spent (In Minutes): <30 Discharge Plan Discharge Items Patient Disposition: Home - Self-Care Reason For Visit: INTRACTABLE NAUSEA & VOMITING,SEVERE LOW BACK PAIN Discharge Diagnosis: adenovirus Condition on Discharge: Good Activity: Per Instructions section Non-emergency contact: Primary Care Provider Call non-emergency contact if: your symptoms worsen Follow-up/Referrals: [facility] [Primary Care Provider] - Diet: Regular Addtl Attending Provider Instructions: You were admitted to the hospital for nausea, vomiting, and low grade fevers. You were found to have a viral infection called Adenovirus, which can cause all of your symptoms. You were given fluids for dehydration, and as needed medicines for nausea and pain. You had a CT scan of your belly and a chest X-ray which were normal. As you continued to improve with IV fluids and as needed medications, you were felt to be safe for discharge home. Please follow up with [facility] or your primary care provider within 10 days of discharge to see how you are improving. If you are having trouble with keeping food down, having ongoing fevers over 100.4 degrees, or feeling any chest pain or shortness of breath, please seek evaluation by a care provider. Pending Studies at Discharge: No Stand-Alone Forms: My [facility], Smoking Cessation Medications and DC Order Prescriptions: New ondansetron 4 mg tablet,disintegrating 4 mg PO Q8H PRN (Reason: nausea and vomiting) 5 Days RF: 0 Continued norgestimate-ethinyl estradiol [Tri-Lo-Radha] 0.18/0.215/0.25 mg-25 mcg tablet 1 tab PO DAILY RF: 0 Discontinued ondansetron HCl 4 mg tablet 4 mg PO Q8H PRN (Reason: nausea and vomiting) 3 Days Qty: 9 RF: 0 Discharge Orders: Discharge Order (Routine); Ordered 01/20/22 Ordered By: Jose Paulino Admission Data Admit Date/Time: 01/18/22 22:23 Attending Provider: Eulogio Knapp Admit Provider: Seth Davis Primary Care Provider: [place] Other Providers: Esmer Tamayo Other Interventions: Discharge Summary Assessment (RN) Last Done: 01/20/22 11:11 Supervising Physician Co-Signing Physician Notes I personally examined the patient and verified all erickson points of history and exam, discussed case, and agree with decision making with Dr Grey feeling better still achy but better eating better zofran helps nausea Vitals noted, in general she is awake and alert appears fatigued but less than yesterday, overall no distress. HEENT normocephalic atraumatic mucous membranes moist. Breathing unlabored no accessory muscle use good effort. Skin shows no rashes no pallor or icterus. Adenovirus with sepsis present on admissionSIRS being tachycardia fever white count. Fortunately she seems to be stabilizing/improvingno clear indications for antibiotics at this timecontinue supportive care, does appear stable for home. otherwise as above Resident Activity Tracking Resident Involvement: Resident Care Provided Care Provided: Adult Hospital Medicine
--- NOTE | 2022-01-20 16:53 | Billing Data ---
Date of Service January 20, 2022 Coding Level of Care Code D/C DAY MANAGEMENT <30 MINS
== END 2022-01-20 13:06 | disposition home or self-care (01) ==
LOC: ED 18:08 → INTOOBSV 22:23 → 2N 22:23 → SUATTDRO 22:23 → 2N 22:36
DX: Z79.3 Long term (current) use of hormonal contraceptives; R11.2 Nausea with vomiting, unspecified; Z88.1 Allergy status to other antibiotic agents; Z91.011 Allergy to milk products; R00.0 Tachycardia, unspecified; J02.9 Acute pharyngitis, unspecified; M54.50 Low back pain, unspecified

== ENCOUNTER 2022-01-22 01:59 | Inpatient (IN) ==
[2022-01-22] MEDS ORDERED: diphenhydrAMINE 50 MG/ML VIAL IV STA (03:13)
[2022-01-22] MEDS ORDERED: SODIUM CHLORIDE 0.9% 1000ML 1,000 ML IV ONE (03:13)
[2022-01-22] MEDS ORDERED: KETOROLAC TROMETHAMINE 15 MG/ML VIAL IV STA (03:13)
[2022-01-22] MEDS ORDERED: METOCLOPRAMIDE HCL INJ 5 MG/ML 2 ML VIAL IV STA (03:13)
[2022-01-22 03:25] LABS: Pregnancy Test, Serum Negative (Negative)
[2022-01-22 03:36] LABS: Albumin Globulin Ratio 1.1 (0.9-2); Albumin Level 4.2 gm/dl (3.4-5.0); BUN Creatinine Ratio 7.6 (10-20); Bilirubin,Total 0.5 mg/dl (0.2-1.0); C Reactive Protein 8.2 mg/dl (0-0.5); Calcium 9.4 mg/dl (8.5-10.1); Creatinine Clr Calc Pharmacy 123.4 ml/min; Est GFR (African American) 148.4 ml/min; Est GFR (Non-African American) 128.1 ml/min; Globulin 3.8 gm/dl (2.5-4.0); Magnesium 1.4 mg/dl (1.7-2.4); Potassium 3.5 mmol/L (3.5-5.1)
[2022-01-22 03:38] LABS: Partial Thromboplastin Ratio 0.9; Partial Thromboplastin Time 26.1 Seconds (21.0-31.0); Prothrombin Time 10.8 Seconds (9.0-12.0)
[2022-01-22] MEDS ORDERED: MoRPHine SULFATE 4 MG/ML 1 ML CARP\\VIAL IV STA ×2 (03:43→07:04)
[2022-01-22 03:44] LABS: Hematocrit (blood only) 39.8 % (37-47); Hemoglobin 14.2 g/dL (12.0-16.0); Mean Corpuscular Hemoglobin 30.6 pg (25-34); Mean Corpuscular Hgb Conc 35.7 g/dL (32-36); Mean Corpuscular Volume 85.8 fL (80-100); Mean Platelet Volume 10.5 fL (7.4-10.4); Platelet Count 439 K/uL (130-400); RDW Coefficient of Variation 12.3 % (11.5-14.5); RDW Standard Deviation 38.8 fL (36.4-46.3); Red Blood Count 4.64 M/uL (4.2-5.4); White Blood Count 19.61 K/uL (4.8-10.8)
[2022-01-22 03:56] LABS: Basophils # (auto) 0.04 K/uL (0-0.2); Basophils % (auto) 0.2 %; Eosinophils # (auto) 0.11 K/uL (0-0.5); Eosinophils % (auto) 0.6 %; Immature Granulocytes # (auto) 0.07 K/uL (0.00-0.02); Immature Granulocytes % (auto) 0.4 %; Lymphocytes # (auto) 1.08 K/uL (1.2-3.4); Lymphocytes % (auto) 5.5 %; Monocytes # (auto) 1.16 K/uL (0.11-0.59); Monocytes % (auto) 5.9 %; Neutrophils # (auto) 17.15 K/uL (1.4-6.5); Neutrophils % (auto) 87.4 %; RBC Morphology Unremarkable
--- NOTE | 2022-01-22 04:00 | Emergency Department Note ---
History of Present Illness General Chief complaint: Abdominal Pain Stated complaint: ABD PAIN Time Seen by Provider: 01/22/22 03:03 History of Present Illness Maximum Pain Intensity: 8 This 21-year-old who was just discharged from hospital presents to the ER complaining of fever and severe back pain Location: Back Quality: Severe Severity: Severe Duration: Past few days Timing: Symptoms started over a week ago Context: Mother was concerned and brought the patient back in Modifying factors: better with rest; worse with activity Patient complains of fever, chills, severe back pain. Patient states she had extensive work-up while she was admitted. She was positive for adenovirus. Patient still complains of vomiting. Patient denies headache, neck pain, cough, congestion. Home Medications Medication Instructions Recorded Confirmed Type norgestimate 0.18 mg/0.215 mg/0.25 1 tab PO DAILY 01/18/22 01/22/22 History mg-ethinyl estradiol 25 mcg tablet (Tri-Lo-Radha) ondansetron 4 mg disintegrating 4 mg PO Q8H PRN 5 Days tab 01/20/22 01/22/22 Rx tablet Allergies Allergy/AdvReac Type Severity Reaction Status Date / Time doxycycline Allergy Intermediate Rash Verified 01/18/22 01:10 lactose Allergy Intermediate Gastrointestinal Verified 01/18/22 01:10 Upset Past Med/Surg History Medical History No significant past medical history Surgical History History of chest tube placement as a child Social History Smoking Status: Never smoker Hx Alcohol Use: Yes Alcohol type: beer, wine and hard liquor Hx Substance Use: No Preferred Language: Colombian Communication Ability: Effective Plastics Repairer Required: No Beliefs That Will Affect Care: None Current Living Situation: Other Current Living Situation Comment: with roommate Feels Safe at Home: Yes Assistive Devices: None Review of Systems A total of 10 systems reviewed and were otherwise negative Physical Exam Vital Signs Vital Signs - 24 hr 01/22/22 02:02 01/22/22 02:41 01/22/22 03:10 Temperature 37.3 C 36.7 C 36.9 C Temperature Source Temporal Artery Scan Oral Oral Pulse Rate 140 H 94 H Pulse Rate [Apical] 124 H 94 H Pulse Rate from SpO2 Sensor Pulse Rhythm Regular Pulse Rhythm [Apical] Regular Regular Pulse Strength [Apical] Normal Normal Respiratory Rate 24 18 18 Respiratory Effort / Characteristics Non-Labored Spontaneous Non-Labored Spontaneous Non-Labored Spontaneous Respiratory Depth Normal Normal Normal Respiratory Pattern Regular Regular Blood Pressure 107/73 Blood Pressure [Right Arm] 108/82 99/61 L Blood Pressure Mean 84 Blood Pressure Mean [Right Arm] 90 73 Blood Pressure Position [Right Arm] Sitting Lying Pulse Oximetry 97 98 98 Oxygen Delivery Method Room Air Room Air Room Air Sepsis New/Unexplained Change in Mental Status N/A Sepsis Action Taken by Nursing No Action Required 01/22/22 03:40 01/22/22 04:00 01/22/22 04:10 Temperature Temperature Source Pulse Rate Pulse Rate [Apical] 74 Pulse Rate from SpO2 Sensor Pulse Rhythm Pulse Rhythm [Apical] Regular Pulse Strength [Apical] Normal Respiratory Rate 18 18 18 Respiratory Effort / Characteristics Non-Labored Spontaneous Non-Labored Spontaneous Non-Labored Spontaneous Respiratory Depth Normal Respiratory Pattern Blood Pressure Blood Pressure [Right Arm] 110/68 Blood Pressure Mean Blood Pressure Mean [Right Arm] 82 Blood Pressure Position [Right Arm] Lying Pulse Oximetry 98 98 97 Oxygen Delivery Method Room Air Room Air Room Air Sepsis New/Unexplained Change in Mental Status Sepsis Action Taken by Nursing 01/22/22 05:10 01/22/22 06:00 01/22/22 07:00 Temperature 37 C Temperature Source Oral Pulse Rate 88 93 H Pulse Rate [Apical] 88 Pulse Rate from SpO2 Sensor 89 Pulse Rhythm Pulse Rhythm [Apical] Regular Pulse Strength [Apical] Normal Respiratory Rate 18 19 19 Respiratory Effort / Characteristics Non-Labored Spontaneous Non-Labored Spontaneous Respiratory Depth Normal Respiratory Pattern Regular Blood Pressure Blood Pressure [Right Arm] 105/71 Blood Pressure Mean Blood Pressure Mean [Right Arm] 82 Blood Pressure Position [Right Arm] Lying Pulse Oximetry 98 96 99 Oxygen Delivery Method Room Air Room Air Sepsis New/Unexplained Change in Mental Status Sepsis Action Taken by Nursing 01/22/22 07:43 01/22/22 07:44 01/22/22 08:00 Temperature Temperature Source Pulse Rate 95 H Pulse Rate [Apical] Pulse Rate from SpO2 Sensor Pulse Rhythm Pulse Rhythm [Apical] Pulse Strength [Apical] Respiratory Rate 19 Respiratory Effort / Characteristics Respiratory Depth Respiratory Pattern Blood Pressure 100/62 Blood Pressure [Right Arm] 108/63 Blood Pressure Mean 74 Blood Pressure Mean [Right Arm] 78 Blood Pressure Position [Right Arm] Pulse Oximetry 94 Oxygen Delivery Method Sepsis New/Unexplained Change in Mental Status Sepsis Action Taken by Nursing 01/22/22 09:00 01/22/22 09:09 01/22/22 10:00 Temperature 37.2 C Temperature Source Oral Pulse Rate 103 H 100 H Pulse Rate [Apical] Pulse Rate from SpO2 Sensor Pulse Rhythm Pulse Rhythm [Apical] Pulse Strength [Apical] Respiratory Rate 18 19 Respiratory Effort / Characteristics Respiratory Depth Respiratory Pattern Blood Pressure 90/49 L 110/63 Blood Pressure [Right Arm] Blood Pressure Mean 62 78 Blood Pressure Mean [Right Arm] Blood Pressure Position [Right Arm] Pulse Oximetry 98 94 Oxygen Delivery Method Sepsis New/Unexplained Change in Mental Status Sepsis Action Taken by Nursing VITALS: Vitals are noted on the nurse's note and reviewed by myself. Vital signs reviewed. GENERAL: White female yelling in pain with her mother present, in no acute distress, nondiaphoretic, well-developed well-nourished. SKIN: The skin was without rashes, erythema, edema, or bruising. There is no tenting of the skin. Capillary reflex less than 2 seconds. HEAD: Normocephalic atraumatic. EARS: External auditory canals clear, EYES: Pupils equal round and reactive to light and accommodation. Conjunctivae without injection, sclerae without icterus. Extraocular movements intact. NOSE: Patent, turbinates without inflammation or discharge. MOUTH: Mucous membranes moist. Pharynx without erythema or exudate. Uvula midline. Airway patent. Tongue does not deviate. NECK: Supple without nuchal rigidity. No lymphadenopathy. No thyromegaly. Cervical spine is nontender. No JVD. HEART: Regular rate and rhythm without murmurs gallops or rubs. LUNGS: Clear to auscultation bilaterally without wheezes, rales or rhonchi. No retractions or accessory muscle use. ABDOMEN: Positive bowel sounds x 4. Normal tympanic percussion. Soft, nontender, without masses or organomegaly. Brandt sign negative. No guarding or rebound tenderness. No CVA tenderness MUSCULOSKELETAL: No muscle atrophy, erythema, or edema noted. Tenderness over the mid lumbar spine and thoracic spine. No step-offs. No signs of shingles. NEURO: Patient was alert and oriented to person place and time. Normal sensation to light and sharp touch. No focal neurological deficits. Course Administered Medications Piperacillin Sod/Tazobactam (Sod 3.375 gm/ Dextrose) 115 mls @ 28.75 mls/hr IV Q8H JUAN; Protocol Stop: 01/24/22 17:59 Last Admin: 01/22/22 20:22 Dose: 28.8 mls/hr Documented by: [id number] Vancomycin HCl 1,250 mg/ (Sodium Chloride) 275 mls @ 200 mls/hr IV Q12H JUAN Stop: 01/24/22 19:59 Last Infusion: 01/22/22 22:19 Dose: 0 mls/hr Documented by: [id number] Admin: 01/22/22 20:26 Dose: 200 mls/hr Documented by: [id number] Ketorolac Tromethamine (Ketorolac Tromethamine 15 Mg/Ml Vial) 15 mg IV Q6H PRN PRN Reason: Pain Stop: 01/27/22 18:28 Last Admin: 01/22/22 19:34 Dose: 15 mg Documented by: [id number] Ondansetron HCl (Ondansetron Inj 2 Mg/Ml 2 Ml Vial) 4 mg IV Q4H PRN PRN Reason: Nausea Stop: 02/21/22 12:09 Last Admin: 01/22/22 12:53 Dose: 4 mg Documented by: [id number] Discontinued Medications Diphenhydramine HCl (Diphenhydramine 50 Mg/Ml Vial) 25 mg IV NOW STA Stop: 01/22/22 03:14 Last Admin: 01/22/22 03:31 Dose: 25 mg Documented by: [id number] Gadobutrol (Gadobutrol 7.5ml Vial) 5.5 ml IV ONCE ONE Stop: 01/22/22 05:01 Last Admin: 01/22/22 05:01 Dose: 5.5 ml Documented by: [id number] Sodium Chloride (Nss 1000ml) 1,000 mls @ 999 mls/hr IV .Q1H1M ONE Stop: 01/22/22 04:13 Last Infusion: 01/22/22 05:01 Dose: 0 mls/hr Documented by: [id number] Admin: 01/22/22 03:32 Dose: 999 mls/hr Documented by: [id number] Magnesium Sulfate/Dextrose (Magnesium Sulfate / D5w) 1 gm in 100 mls @ 100 mls/hr IV Q1H JUAN Stop: 01/22/22 08:30 Last Infusion: 01/22/22 09:09 Dose: 0 mls/hr Documented by: [id number] Admin: 01/22/22 08:07 Dose: 100 mls/hr Documented by: [id number] Infusion: 01/22/22 08:02 Dose: 100 mls/hr Documented by: [id number] Admin: 01/22/22 07:02 Dose: 100 mls/hr Documented by: [id number] Vancomycin HCl 1,250 mg/ (Sodium Chloride) 275 mls @ 200 mls/hr IV NOW ONE Stop: 01/22/22 14:22 Last Infusion: 01/22/22 15:56 Dose: 0 mls/hr Documented by: [id number] Admin: 01/22/22 14:05 Dose: 200 mls/hr Documented by: [id number] Piperacillin Sod/Tazobactam (Sod 3.375 gm/ Dextrose) 115 mls @ 230 mls/hr IV NOW ONE; Protocol Stop: 01/22/22 13:29 Last Infusion: 01/22/22 14:00 Dose: 0 mls/hr Documented by: [id number] Admin: 01/22/22 13:30 Dose: 230 mls/hr Documented by: [id number] Ketorolac Tromethamine (Ketorolac Tromethamine 15 Mg/Ml Vial) 10 mg IV NOW STA Stop: 01/22/22 03:14 Last Admin: 01/22/22 03:31 Dose: 10 mg Documented by: [id number] Ketorolac Tromethamine (Ketorolac Tromethamine 15 Mg/Ml Vial) 15 mg IV NOW ONE Stop: 01/22/22 13:24 Last Admin: 01/22/22 13:27 Dose: 15 mg Documented by: [id number] Metoclopramide HCl (Metoclopramide Hcl Inj 5 Mg/Ml 2 Ml Vial) 10 mg IV NOW STA Stop: 01/22/22 03:14 Last Admin: 01/22/22 03:32 Dose: 10 mg Documented by: [id number] Morphine Sulfate (Morphine Sulfate 4 Mg/Ml 1 Ml Carp\Vial) 4 mg IV NOW STA Stop: 01/22/22 03:44 Last Admin: 01/22/22 03:46 Dose: 4 mg Documented by: [id number] Morphine Sulfate (Morphine Sulfate 4 Mg/Ml 1 Ml Carp\Vial) 4 mg IV NOW STA Stop: 01/22/22 07:05 Last Admin: 01/22/22 07:19 Dose: 4 mg Documented by: [id number] Ondansetron HCl (Ondansetron Inj 2 Mg/Ml 2 Ml Vial) 4 mg IV NOW STA Stop: 01/22/22 06:33 Last Admin: 01/22/22 09:09 Dose: Not Given Documented by: [id number] Medical Decision Making Medical Records Attestation: I reviewed the patient's medical records. Home Medications Current Medication List: was personally reviewed by me Laboratory Data Attestation: I reviewed the patient's lab results. Result diagrams: 01/22/22 02:30 01/22/22 02:30 Lab Results 01/22/22 01/22/22 01/22/22 Range/Units 02:30 02:30 02:30 WBC 19.61 H (4.8-10.8) K/uL RBC 4.64 (4.2-5.4) M/uL Hgb 14.2 D (12.0-16.0) g/dL Hct 39.8 (37-47) % MCV 85.8 (80-100) fL MCH 30.6 (25-34) pg MCHC 35.7 (32-36) g/dL RDW Std Deviation 38.8 (36.4-46.3) fL RDW Coeff of Juan 12.3 (11.5-14.5) % Plt Count 439 H D (130-400) K/uL MPV 10.5 H (7.4-10.4) fL Immature Gran % (Auto) 0.4 % Neut % (Auto) 87.4 % Lymph % (Auto) 5.5 % [place] % (Auto) 5.9 % Eos % (Auto) 0.6 % Baso % (Auto) 0.2 % Neut # (Auto) 17.15 H (1.4-6.5) K/uL Lymph # (Auto) 1.08 L (1.2-3.4) K/uL [place] # (Auto) 1.16 H (0.11-0.59) K/uL Eos # (Auto) 0.11 (0-0.5) K/uL Baso # (Auto) 0.04 (0-0.2) K/uL Immature Gran # (Auto) 0.07 H (0.00-0.02) K/uL RBC Morphology Unremarkable ESR 27 H (0-20) mm/hr PT 10.8 (9.0-12.0) Seconds INR 1.0 (0.9-1.1) APTT 26.1 (21.0-31.0) Seconds PTT Ratio 0.9 Sodium (136-145) mmol/L Potassium (3.5-5.1) mmol/L Chloride (98-107) mmol/L Carbon Dioxide (21-32) mmol/L Anion Gap (3-11) BUN (6-23) mg/dl Creatinine (0.6-1.2) mg/dl Est Cr Clr Drug Dosing ml/min Est GFR ( Amer) ml/min Est GFR (Non-Af Amer) ml/min BUN/Creatinine Ratio (10-20) Glucose (70-99(Fasting)) mg/dl Lactate (0.4-2.0) mmol/L Calcium (8.5-10.1) mg/dl Magnesium (1.7-2.4) mg/dl Total Bilirubin (0.2-1.0) mg/dl AST (13-39) U/L ALT (7-52) U/L Alkaline Phosphatase (34-104) U/L Total Creatine Kinase (26-192) U/L Troponin I High Sens (0-14) pg/ml C-Reactive Protein (0-0.5) mg/dl Total Protein (6.0-8.3) gm/dl Albumin (3.4-5.0) gm/dl Globulin (2.5-4.0) gm/dl Albumin/Globulin Ratio (0.9-2) HCG, Qual (Negative) SARS-CoV-2 (PCR) (Negative) Influenza Type A (PCR) (Neg) Influenza Type B (PCR) (Neg) RSV (RT-PCR) (Neg) 01/22/22 01/22/22 01/22/22 Range/Units 02:30 02:30 03:55 WBC (4.8-10.8) K/uL RBC (4.2-5.4) M/uL Hgb (12.0-16.0) g/dL Hct (37-47) % MCV (80-100) fL MCH (25-34) pg MCHC (32-36) g/dL RDW Std Deviation (36.4-46.3) fL RDW Coeff of Juan (11.5-14.5) % Plt Count (130-400) K/uL MPV (7.4-10.4) fL Immature Gran % (Auto) % Neut % (Auto) % Lymph % (Auto) % [place] % (Auto) % Eos % (Auto) % Baso % (Auto) % Neut # (Auto) (1.4-6.5) K/uL Lymph # (Auto) (1.2-3.4) K/uL [place] # (Auto) (0.11-0.59) K/uL Eos # (Auto) (0-0.5) K/uL Baso # (Auto) (0-0.2) K/uL Immature Gran # (Auto) (0.00-0.02) K/uL RBC Morphology ESR (0-20) mm/hr PT (9.0-12.0) Seconds INR (0.9-1.1) APTT (21.0-31.0) Seconds PTT Ratio Sodium 136 (136-145) mmol/L Potassium 3.5 (3.5-5.1) mmol/L Chloride 99 (98-107) mmol/L Carbon Dioxide 25 (21-32) mmol/L Anion Gap 12 H (3-11) BUN 5 L (6-23) mg/dl Creatinine 0.66 (0.6-1.2) mg/dl Est Cr Clr Drug Dosing 123.4 ml/min Est GFR ( Amer) 148.4 ml/min Est GFR (Non-Af Amer) 128.1 ml/min BUN/Creatinine Ratio 7.6 L (10-20) Glucose 89 (70-99(Fasting)) mg/dl Lactate 1.1 (0.4-2.0) mmol/L Calcium 9.4 (8.5-10.1) mg/dl Magnesium 1.4 L (1.7-2.4) mg/dl Total Bilirubin 0.5 (0.2-1.0) mg/dl AST 17 (13-39) U/L ALT 11 (7-52) U/L Alkaline Phosphatase 53 (34-104) U/L Total Creatine Kinase (26-192) U/L Troponin I High Sens (0-14) pg/ml C-Reactive Protein 8.20 H (0-0.5) mg/dl Total Protein 8.0 (6.0-8.3) gm/dl Albumin 4.2 (3.4-5.0) gm/dl Globulin 3.8 (2.5-4.0) gm/dl Albumin/Globulin Ratio 1.1 (0.9-2) HCG, Qual Negative (Negative) SARS-CoV-2 (PCR) (Negative) Influenza Type A (PCR) (Neg) Influenza Type B (PCR) (Neg) RSV (RT-PCR) (Neg) 01/22/22 01/22/22 Range/Units 06:35 06:46 WBC (4.8-10.8) K/uL RBC (4.2-5.4) M/uL Hgb (12.0-16.0) g/dL Hct (37-47) % MCV (80-100) fL MCH (25-34) pg MCHC (32-36) g/dL RDW Std Deviation (36.4-46.3) fL RDW Coeff of Juan (11.5-14.5) % Plt Count (130-400) K/uL MPV (7.4-10.4) fL Immature Gran % (Auto) % Neut % (Auto) % Lymph % (Auto) % [place] % (Auto) % Eos % (Auto) % Baso % (Auto) % Neut # (Auto) (1.4-6.5) K/uL Lymph # (Auto) (1.2-3.4) K/uL [place] # (Auto) (0.11-0.59) K/uL Eos # (Auto) (0-0.5) K/uL Baso # (Auto) (0-0.2) K/uL Immature Gran # (Auto) (0.00-0.02) K/uL RBC Morphology ESR (0-20) mm/hr PT (9.0-12.0) Seconds INR (0.9-1.1) APTT (21.0-31.0) Seconds PTT Ratio Sodium (136-145) mmol/L Potassium (3.5-5.1) mmol/L Chloride (98-107) mmol/L Carbon Dioxide (21-32) mmol/L Anion Gap (3-11) BUN (6-23) mg/dl Creatinine (0.6-1.2) mg/dl Est Cr Clr Drug Dosing ml/min Est GFR ( Amer) ml/min Est GFR (Non-Af Amer) ml/min BUN/Creatinine Ratio (10-20) Glucose (70-99(Fasting)) mg/dl Lactate (0.4-2.0) mmol/L Calcium (8.5-10.1) mg/dl Magnesium (1.7-2.4) mg/dl Total Bilirubin (0.2-1.0) mg/dl AST (13-39) U/L ALT (7-52) U/L Alkaline Phosphatase (34-104) U/L Total Creatine Kinase 61 (26-192) U/L Troponin I High Sens 2.8 (0-14) pg/ml C-Reactive Protein (0-0.5) mg/dl Total Protein (6.0-8.3) gm/dl Albumin (3.4-5.0) gm/dl Globulin (2.5-4.0) gm/dl Albumin/Globulin Ratio (0.9-2) HCG, Qual (Negative) SARS-CoV-2 (PCR) NEGATIVE (Negative) Influenza Type A (PCR) Negative (Neg) Influenza Type B (PCR) Negative (Neg) RSV (RT-PCR) Negative (Neg) Imaging Data Attestation: I personally reviewed and interpreted this imaging study as follows: MDM Narrative Prior records/ancillary studies reviewed. Triage Nursing notes reviewed. Additional history obtained from nursing. The patient's history was concerning for fever. Differential diagnosis: Etiologies such as viral syndrome, otitis, pharyngitis, pneumonia, influenza, meningitis, urinary tract infection, sepsis, bacteremia, as well as others were entertained. Physical examination: As above ER treatment provided: An order was placed for continuous cardiac monitoring. The monitor shows a rate of 60-1 50 with a sinus rhythm. IV fluids, Reglan, Benadryl, Toradol, morphine On reassessment the patient felt better. Diagnostics interpreted by me: ECG: Ordered for tachycardia EKG: Normal sinus, T wave inversion lead III and anterior septal leads rate 99, impression normal sinus rhythm with T wave inversions interpreted by myself I think arrhythmia is unlikely. EKG shows normal sinus rhythm with no interval abnormalities such as QT prolongation or WPW. There are no findings to suggest Brugada syndrome. Cardiac monitoring in the emergency department reveals no tachycardic or bradycardic dysrhythmia. Hypertrophic cardiomyopathy was considered but there are no clear historical elements pointing toward this. EKG is not suggestive. The QRS voltage is not extremely large and there are no suggestive Q waves. The labs revealed leukocytosis, elevated inflammatory markers Blood cultures pending Negative lactic Imaging studies: Chest x-ray with no acute consolidation, pneumothorax or free air per my interpretation Preliminary Findings Only See Final Report For Complete Findings MRI T SPINE : Normal appearance of the thoracic spine. Cord intact. Spinal canal intact. Soft tissue structures are unremarkable. No abnormal enhancement detected. Impression: No acute findings. Radiologist: Abhinav Sarabia M.D. Preliminary Findings Only See Final Report For Complete Findings MRI L SPINE : Lumbar spine unremarkable. Normal appearance of the conus. Spinal canal intact. No abnormal enhancement. Impression: No acute findings. Radiologist: Abhinav Sarabia M.D. Consultation: A consultation was placed with hospitalist. The case was discussed and diagnostics were reviewed. The patient was evaluated in the ER for further treatment. This appears to be consistent with hypomagnesia, nausea vomiting and intractable back pain. Patient was just discharged yesterday. Her symptoms are even more severe. Medicine is consulted. She will be evaluated for possible admission. By the evaluation outlined above emergent etiologies such as otitis, pharyngitis, pneumonia, meningitis, sepsis, bacteremia, as well as others were deemed relatively unlikely. The pt informed about the findings as listed above. All questions were answered and pleased with the treatment. The chart was completed utilizing [employer] voice recognition software. Grammatical errors, random word insertions, pronoun errors, and incomplete sentences are an occassional consequence of this system due to software limitations, ambient noise, and hardware issues. Any formal questions or concerns about the content, text, or information contained within the body of this dictation should be directly addressed to the physician blood and plasma laboratory assistant for clarification. Impression & Plan Back pain, Vomiting, Hypomagnesemia Discharge Plan Visit Data Chief Complaint: Abdominal Pain Stated Complaint: ABD PAIN ED Provider: Candi Byers ED Midlevel Provider: Padmini Johnson Discharge Problem: Back pain, Vomiting, Hypomagnesemia Patient Disposition: Admitted As Inpatient Condition: Good Discharge Instructions Interventions: ED Discharge Assessment Last Done: 01/22/22 12:17 Discharge Problem: Back pain Qualifiers: Back pain location: low back pain Chronicity: acute Back pain laterality: midline Sciatica presence: without sciatica Qualified Code(s): M54.50 - Low back pain, unspecified
[2022-01-22] MEDS ORDERED: GADOBUTROL 7.5ML VIAL IV ONE (05:00)
[2022-01-22] MEDS ORDERED: ONDANSETRON INJ 2 MG/ML 2 ML VIAL IV STA (06:32)
[2022-01-22] MEDS: MAGNESIUM SULFATE / D5W 1 GM/100 ML BAG IV SCH ×2 (07:02→08:07)
[2022-01-22 07:34] LABS: Troponin I High Sensitivity 2.8 pg/ml (0-14)
[2022-01-22 07:39] LABS: Influenza A virus by PCR Negative (Neg); Influenza B virus by PCR Negative (Neg); RSV by PCR Negative (Neg); SARS CoV2 RNA(COVID-19) InHosp NEGATIVE (Negative)
--- NOTE | 2022-01-22 08:02 | XRay Report ---
XR chest 1V portable HISTORY: SEPSIS COMPARISON: Chest 01/18/2022. FINDINGS: No pneumothorax or no pleural effusions. The heart is normal in size. No evidence for pulmo nary edema. No focal lung consolidations to suggest pneumonia. No acute rib fractures. IMPRESSION: No acute process. ACT 112: Negative or not required by law. Electronically signed by: Sean Chaudhry M.D. 01/22/2022 8:01 AM
--- NOTE | 2022-01-22 08:30 | Magnetic Resonance Report ---
LUMBAR SPINE MRI WITH AND WITHOUT CONTRAST HISTORY: Low back pain. fever, severe pain TECHNIQUE: Multiplanar multisequence MRI of the lumbar spine was performed both before and after the intravenous administration of 5.5 cc of Gadavist contrast. COMPARISON: None. FINDINGS: For the purpose of the report the L5-S1 disc space will be located on axial image 23 of 25. No fracture or subluxation. Normal marrow signal intensity seen throughout the visualized osseous str uctures. Disc spaces are preserved. The conus terminates at the L1 level. No disc herniations. Parave rtebral soft tissues are unremarkable. No epidural or paraspinal abscesses identified. Postcontrast s equences show no areas of abnormal enhancement. L1-L2: No significant central canal or neural foraminal narrowing. L2-L3: No significant central canal or neural foraminal narrowing. L3-L4: No significant central canal or neural foraminal narrowing. L4-L5: No significant central canal or neural foraminal narrowing. L5-S1: No significant central canal or neural foraminal narrowing. IMPRESSION: Normal lumbar spine MRI. No evidence for discitis/osteomyelitis. ACT 112: Negative or not required by law. Electronically signed by: Sean Chaudhry M.D. 01/22/2022 8:29 AM
--- NOTE | 2022-01-22 10:24 | Magnetic Resonance Report ---
MR thoracic spine wo/w con HISTORY: 21 years-old Female fever, severe pain acute severe mid back pain with fever COMPARISON: MRI lumbar spine of same day, CTA chest 11/21/2021 TECHNIQUE: Multiplanar multisequence MRI of the thoracic spine was obtained both with and without the use of 5.5 cc Gadavist FINDINGS: There is no abnormal enhancement. The study is mildly motion degraded. No acute fracture spine abnorm ality identified. No acute fracture, subluxation, endplate erosion, bone marrow or soft tissue edema. The intervertebral disc spaces are well-maintained. No significant discogenic degeneration with spon dylitic spurring. Signal within the imaged cervical and thoracic spinal cord appears normal. No lesio ns of the central canal. No significant central canal or neural foraminal narrowing. No epidural flui d collections. IMPRESSION: 1. Normal MRI of the thoracic spine. 2. No abnormal enhancement. ACT 112: Negative or not required by law. The above report was generated using voice recognition software. It may contain grammatical, syntax o r spelling errors. Electronically signed by: Damián Melton M.D. 01/22/2022 10:21 AM
[2022-01-22 12:06] LABS: Appearance Urine Clear (Clear); Bilirubin Urine Negative (Negative); Blood Urine Trace-intact (Negative); Color Urine Yellow; Glucose Urine UA Negative (Negative); Ketones Urine Negative (Negative); Leukocyte Esterase Urine Negative (Negative); Nitrite Urine Negative (Negative); Protein Urine 1+ (Negative); Specific Gravity Urine >= 1.030 (1.000-1.030); Urobilinogen Urine Negative (Negative); pH Urine 5.5 (4.5-7.5)
[2022-01-22] MEDS ORDERED: VANCOMYCIN HCL 1,000 MG in SODIUM CHLORIDE 0.9% 500 ML IV SCH (12:16)
[2022-01-22] MEDS ORDERED: VANCOMYCIN CONSULT ACTIVE PRN (12:16)
[2022-01-22] MEDS ORDERED: PIPERACILL/TAZOBAC CONSULT ACTIVE PRN (12:16)
[2022-01-22 12:24] LABS: Epithelial Cell Urine 0-5 /lpf (0-5); Mucus Urine Present (None Prsent); RBC Urine 0-4 /hpf (0-4)
[2022-01-22 12:25] LABS: Bacteria Urine 1+ (Negative)
[2022-01-22] MEDS: ONDANSETRON INJ 2 MG/ML 2 ML VIAL IV PRN (12:53)
[2022-01-22] MEDS ORDERED: PIPERACILLIN/TAZOBACTAM 3.375 GM in DEXTROSE 5% 100 ML IV ONE (13:00)
[2022-01-22] MEDS ORDERED: VANCOMYCIN HCL 1,250 MG in SODIUM CHLORIDE 0.9% 250 ML IV ONE (13:00)
--- NOTE | 2022-01-22 13:11 | History & Physical Report ---
Date of Service January 22, 2022 Assessment & Plan (1) Intractable low back pain: Plan: Patient presents for back pain, which has been going on about 1 week prior to presentation. Etiology is uncertain, patient denies any heavy lifting or strain. No evidence of PID Although MRI lumbar and thoracic spine are negative, however given the evidence of fever and chills, there could be an infectious process going on. We will obtain blood cultures. Start empiric IV vancomycin and Zosyn Consult infectious diseases (2) Vomiting: Plan: Most likely due to acute infection Symptomatic management with IV Zofran PRN (3) Fever: Plan: as above Admission and Anticipated Discharge Date Admission Date: January 22, 2022 History of Present Illness Chief Complaint: back pain, fever Primary Care Provider: [facility] This is a 21-year-old female with no significant past medical history who came back to the emergency department today on account of worsening back pain. According to the patient, the pain started about a week prior to presentation. This made her come to the emergency department couple of days ago. Preliminary investigation for PID, gonorrhea, and STIs were negative and patient was subsequently discharged however according to the patient's mother her back pain worsened then accompanied with fever and chills so she brought her back to the hospital. Upon further evaluation, in the emergency department, WBC was found to be 19,000, repeat chest x-ray was normal. MRI of the lumbar spine also thoracic spine did not show any acute pathology. Blood cultures have been obtained, patient has been empirically started on IV antibiotics and will be admitted to the hospital for further investigation and further management. Allergies Allergy/AdvReac Type Severity Reaction Status Date / Time doxycycline Allergy Intermediate Rash Verified 01/18/22 01:10 lactose Allergy Intermediate Gastrointestinal Verified 01/18/22 01:10 Upset Home Medications Medication Instructions Recorded Confirmed Type norgestimate 0.18 mg/0.215 mg/0.25 1 tab PO DAILY 01/18/22 01/18/22 History mg-ethinyl estradiol 25 mcg tablet (Tri-Lo-Radha) ondansetron 4 mg disintegrating 4 mg PO Q8H PRN 5 Days tab 01/20/22 Rx tablet Past Med/Surg History Medical History No significant past medical history Surgical History History of chest tube placement as a child Social History Smoking Status: Never smoker Hx Alcohol Use: Yes Alcohol type: beer, wine and hard liquor Hx Substance Use: No Preferred Language: Portuguese Communication Ability: Effective [employer] Required: No Beliefs That Will Affect Care: None Current Living Situation: Other Current Living Situation Comment: with roommate Feels Safe at Home: Yes Assistive Devices: None Review of Systems Review of Systems: All systems reviewed are negative, apart from the ones contained in the history. Physical Exam Physical Exam: The patient is awake, alert and oriented 3, well developed and well nourished, normocephalic and atraumatic, lying in bed and in no acute distress. HEENT--PERRL, EOMI, mucous membranes and oropharynx mildly dry Neck--supple. No JVD. No bruits. Thyroid normal, trachea midline, no adenopathy. Heart--normal S1 and S2. No murmurs, rubs or gallops. Lungs--clear bilaterally, no respiratory distress, no accessory muscle use. Abdomen--normal bowel sounds and soft. Mild epigastric and left sided abdominal pain Extremities--no cyanosis or clubbing. No edema. Dermatologic--normal skin turgor, normal color, no abnormal lymph nodes, no rash. Neurologic--cranial nerves II through XII grossly intact. Rheumatologic--normal range of motion. Psychiatric--normal affect. Results & Data Results & Data ([facility]) Vital Signs (Past 12 Hours) Vital Signs Temp Pulse Pulse Resp BP BP Pulse Ox 01/22/22 12:00 111 H 14 112/64 95 01/22/22 11:00 96 H 18 112/68 95 01/22/22 10:28 102 H 16 110/63 94 01/22/22 10:00 100 H 19 110/63 94 01/22/22 09:09 99.0 F 01/22/22 09:00 103 H 18 90/49 L 98 01/22/22 08:00 100/62 01/22/22 07:44 108/63 01/22/22 07:43 95 H 19 94 01/22/22 07:00 93 H 19 99 01/22/22 06:00 88 19 96 01/22/22 05:10 98.6 F 88 18 105/71 98 01/22/22 04:10 18 97 01/22/22 04:00 74 18 110/68 98 01/22/22 03:40 18 98 01/22/22 03:10 98.4 F 94 H 94 H 18 99/61 L 98 01/22/22 02:41 98.1 F 124 H 18 108/82 98 01/22/22 02:02 99.1 F 140 H 24 107/73 97 Laboratory Results Laboratory Results - last 24 hr 01/22/22 01/22/22 01/22/22 02:30 02:30 02:30 WBC 19.61 H RBC 4.64 Hgb 14.2 D Hct 39.8 MCV 85.8 MCH 30.6 MCHC 35.7 RDW Std Deviation 38.8 RDW Coeff of Juan 12.3 Plt Count 439 H D MPV 10.5 H Immature Gran % (Auto) 0.4 Neut % (Auto) 87.4 Lymph % (Auto) 5.5 [place] % (Auto) 5.9 Eos % (Auto) 0.6 Baso % (Auto) 0.2 Neut # (Auto) 17.15 H Lymph # (Auto) 1.08 L [place] # (Auto) 1.16 H Eos # (Auto) 0.11 Baso # (Auto) 0.04 Immature Gran # (Auto) 0.07 H RBC Morphology Unremarkable ESR 27 H PT 10.8 INR 1.0 APTT 26.1 PTT Ratio 0.9 Sodium Potassium Chloride Carbon Dioxide Anion Gap BUN Creatinine Est Cr Clr Drug Dosing Est GFR ( Amer) Est GFR (Non-Af Amer) BUN/Creatinine Ratio Glucose Lactate Calcium Magnesium Total Bilirubin AST ALT Alkaline Phosphatase Total Creatine Kinase Troponin I High Sens C-Reactive Protein Total Protein Albumin Globulin Albumin/Globulin Ratio HCG, Qual Urine Color Urine Appearance Urine pH Ur Specific [place] Urine Protein Urine Glucose (UA) Urine Ketones Urine Blood Urine Nitrite Urine Bilirubin Urine Urobilinogen Ur Leukocyte Esterase Urine RBC Urine WBC Ur Epithelial Cells Urine Bacteria Urine Mucus SARS-CoV-2 (PCR) Influenza Type A (PCR) Influenza Type B (PCR) RSV (RT-PCR) 01/22/22 01/22/22 01/22/22 02:30 02:30 03:55 WBC RBC Hgb Hct MCV MCH MCHC RDW Std Deviation RDW Coeff of Juan Plt Count MPV Immature Gran % (Auto) Neut % (Auto) Lymph % (Auto) [place] % (Auto) Eos % (Auto) Baso % (Auto) Neut # (Auto) Lymph # (Auto) [place] # (Auto) Eos # (Auto) Baso # (Auto) Immature Gran # (Auto) RBC Morphology ESR PT INR APTT PTT Ratio Sodium 136 Potassium 3.5 Chloride 99 Carbon Dioxide 25 Anion Gap 12 H BUN 5 L Creatinine 0.66 Est Cr Clr Drug Dosing 123.4 Est GFR ( Amer) 148.4 Est GFR (Non-Af Amer) 128.1 BUN/Creatinine Ratio 7.6 L Glucose 89 Lactate 1.1 Calcium 9.4 Magnesium 1.4 L Total Bilirubin 0.5 AST 17 ALT 11 Alkaline Phosphatase 53 Total Creatine Kinase Troponin I High Sens C-Reactive Protein 8.20 H Total Protein 8.0 Albumin 4.2 Globulin 3.8 Albumin/Globulin Ratio 1.1 HCG, Qual Negative Urine Color Urine Appearance Urine pH Ur Specific [place] Urine Protein Urine Glucose (UA) Urine Ketones Urine Blood Urine Nitrite Urine Bilirubin Urine Urobilinogen Ur Leukocyte Esterase Urine RBC Urine WBC Ur Epithelial Cells Urine Bacteria Urine Mucus SARS-CoV-2 (PCR) Influenza Type A (PCR) Influenza Type B (PCR) RSV (RT-PCR) 01/22/22 01/22/22 01/22/22 06:35 06:46 11:42 WBC RBC Hgb Hct MCV MCH MCHC RDW Std Deviation RDW Coeff of Juan Plt Count MPV Immature Gran % (Auto) Neut % (Auto) Lymph % (Auto) [place] % (Auto) Eos % (Auto) Baso % (Auto) Neut # (Auto) Lymph # (Auto) [place] # (Auto) Eos # (Auto) Baso # (Auto) Immature Gran # (Auto) RBC Morphology ESR PT INR APTT PTT Ratio Sodium Potassium Chloride Carbon Dioxide Anion Gap BUN Creatinine Est Cr Clr Drug Dosing Est GFR ( Amer) Est GFR (Non-Af Amer) BUN/Creatinine Ratio Glucose Lactate Calcium Magnesium Total Bilirubin AST ALT Alkaline Phosphatase Total Creatine Kinase 61 Troponin I High Sens 2.8 C-Reactive Protein Total Protein Albumin Globulin Albumin/Globulin Ratio HCG, Qual Urine Color Yellow Urine Appearance Clear Urine pH 5.5 Ur Specific [place] >= 1.030 Urine Protein 1+ H Urine Glucose (UA) Negative Urine Ketones Negative Urine Blood Trace-intact H Urine Nitrite Negative Urine Bilirubin Negative Urine Urobilinogen Negative Ur Leukocyte Esterase Negative Urine RBC 0-4 Urine WBC 10-30 H Ur Epithelial Cells 0-5 Urine Bacteria 1+ H Urine Mucus Present A SARS-CoV-2 (PCR) NEGATIVE Influenza Type A (PCR) Negative Influenza Type B (PCR) Negative RSV (RT-PCR) Negative Code Status & VTE Plan VTE Prophylaxis Plan VTE Prophylaxis will be ordered: Yes PG Care Time/CCT Total # of Minutes Spent Total Time Spent with Patient: Total time spent is greater than 50% in coordination of care (as documented) at patient's floor/unit and/or counseling patient: Coding Level of Care Code 57795 Initial Inpt Care Lvl 3 Diagnoses Intractable low back pain M54.59 Vomiting R11.2 Nausea presence: with nausea Vomiting type: unspecified Fever R50.9 Fever type: unspecified Time Spent (min) 35 (1) Vomiting Nausea presence: with nausea Vomiting type: unspecified Qualified Code(s): R11.2 - Nausea with vomiting, unspecified (2) Fever Fever type: unspecified Qualified Code(s): R50.9 - Fever, unspecified
[2022-01-22] MEDS ORDERED: KETOROLAC TROMETHAMINE 15 MG/ML VIAL IV ONE (13:23)
--- NOTE | 2022-01-22 14:24 | Pharmacy Report ---
Pharmacy Vanc AUC Short Note - Date of Service January 22, 2022 - Assessment & Plan Assessment 21 year old F receiving vancomycin and zosyn empirically in setting of fever, chills, and elevated inflammatory markers. Blood and urine cultures pending. Renal function stable. Day # 1 of antimicrobial therapy. Plan Vancomycin * AUC/ALMA is the preferred PK/PD target for vancomycin * AUC guided dosing is effective and associated with decreased risk of nephrotoxicity compared to traditional trough targets * Trough level of 14.4 mcg/mL is predicted to achieve target AUC/ALMA of 400-600 mg/L.hr and may be associated with a 10% risk of nephrotoxicity * S/p vancomycin load of 1250mg X 1. Will begin maintenance regimen of 1250mg IV q12h. * Will obtain a trough level around steady state if vancomycin continued, or sooner if clinically indicated Pharmacy will continue to follow and will adjust dose/frequency as necessary. Thank you.
[2022-01-22] MEDS: KETOROLAC TROMETHAMINE 15 MG/ML VIAL IV PRN (19:34)
[2022-01-22] MEDS: PIPERACILLIN/TAZOBACTAM 3.375 GM in DEXTROSE 5% 100 ML IV SCH (20:22)
[2022-01-22] MEDS: VANCOMYCIN HCL 1,250 MG in SODIUM CHLORIDE 0.9% 250 ML IV SCH (20:26)
[2022-01-23] MEDS: ONDANSETRON INJ 2 MG/ML 2 ML VIAL IV PRN ×2 (00:17→16:53)
[2022-01-23] MEDS: KETOROLAC TROMETHAMINE 15 MG/ML VIAL IV PRN ×2 (01:56→12:36)
[2022-01-23] MEDS: PIPERACILLIN/TAZOBACTAM 3.375 GM in DEXTROSE 5% 100 ML IV SCH ×3 (01:57→18:34)
--- NOTE | 2022-01-23 06:35 | Electrocardiogram Report ---
Test Reason : Blood Pressure : / mmHG Vent. Rate : 099 BPM Atrial Rate : 099 BPM P-R Int : 110 ms QRS Dur : 076 ms QT Int : 366 ms P-R-T Axes : 056 074 021 degrees QTc Int : 469 ms Sinus rhythm with short TN Nonspecific T wave abnormality Abnormal ECG When compared with ECG of 18-JAN-2022 18:46, No significant change Confirmed by Manas Go ([id number]) on 01/23/2022 6:35:20 AM Referred By: REFERRED SELF Confirmed By:Manas Go
[2022-01-23] MEDS: VANCOMYCIN HCL 1,250 MG in SODIUM CHLORIDE 0.9% 250 ML IV SCH (07:40)
[2022-01-23 10:22] LABS: Hematocrit (blood only) 37.3 % (37-47); Hemoglobin 12.4 g/dL (12.0-16.0); Mean Corpuscular Hemoglobin 29.7 pg (25-34); Mean Corpuscular Hgb Conc 33.2 g/dL (32-36); Mean Corpuscular Volume 89.4 fL (80-100); Mean Platelet Volume 10.1 fL (7.4-10.4); Platelet Count 392 K/uL (130-400); RDW Coefficient of Variation 12.8 % (11.5-14.5); RDW Standard Deviation 41.9 fL (36.4-46.3); Red Blood Count 4.17 M/uL (4.2-5.4); White Blood Count 13.73 K/uL (4.8-10.8)
[2022-01-23 10:58] LABS: BUN Creatinine Ratio 6.3 (10-20); Calcium 8.7 mg/dl (8.5-10.1); Creatinine Clr Calc Pharmacy 57.3 ml/min; Est GFR (African American) 61.9 ml/min; Est GFR (Non-African American) 53.4 ml/min; Potassium 3.6 mmol/L (3.5-5.1)
[2022-01-23] MEDS: SODIUM CHLORIDE 0.9% 1000ML 1,000 ML IV SCH (14:54)
[2022-01-23] MEDS: HYDROCODONE/ACETAMOPHEN 5/325MG TAB PO PRN ×2 (14:58→19:47)
--- NOTE | 2022-01-23 15:05 | Hospitalist Progress Note ---
Date of Service January 23, 2022 Assessment & Plan (1) Intractable low back pain: Plan: Patient presents for back pain, which has been going on about 1 week prior to presentation. Etiology is uncertain, patient denies any heavy lifting or strain. Says the pain is occasionally migratory, from lower to upper back No evidence of PID. will obtain DEMIAN to r/o auto immune athrithides Although MRI lumbar and thoracic spine are negative, however given the evidence of fever and chills, there could be an infectious process going on. Blood and urine cultures are negative so far Started empiric IV vancomycin and Zosyn, but will stop vanc on account of worsening kidney function Consult infectious diseases (2) ISAIAH (acute kidney injury): Plan: most likley pre renal due to dehydration will discontinue Toradol and vancomycin IV saline 80cc/hr receck [facility] tomorrow (3) Vomiting: Plan: Most likely due to acute infection Symptomatic management with IV Zofran PRN (4) Fever: Plan: as above Admission and Anticipated Discharge Date Admission Date: January 22, 2022 Subjective patient seen and examined, still feeling sick and not able to keep any food down Review of Systems Review of Systems: All systems reviewed are negative, apart from the ones contained in the history. Physical Exam Physical Exam: The patient is awake, alert and oriented 3, well developed and well nourished, normocephalic and atraumatic, lying in bed and in no acute distress. HEENT--PERRL, EOMI, mucous membranes and oropharynx mildly dry Neck--supple. No JVD. No bruits. Thyroid normal, trachea midline, no adenopathy. Heart--normal S1 and S2. No murmurs, rubs or gallops. Lungs--clear bilaterally, no respiratory distress, no accessory muscle use. Abdomen--normal bowel sounds and soft. Mild epigastric and left sided abdominal pain Extremities--no cyanosis or clubbing. No edema. Dermatologic--normal skin turgor, normal color, no abnormal lymph nodes, no rash. Neurologic--cranial nerves II through XII grossly intact. Rheumatologic--normal range of motion. Psychiatric--normal affect. Results & Data Results & Data ([facility]) Vital Signs (Past 12 Hours) Vital Signs Temp Resp BP Pulse Ox 01/23/22 08:15 97.3 F L 16 97/64 L 97 Laboratory Results Laboratory Results - last 24 hr 01/22/22 01/22/22 01/23/22 15:15 16:26 09:32 WBC 13.73 H RBC 4.17 L Hgb 12.4 Hct 37.3 MCV 89.4 MCH 29.7 MCHC 33.2 RDW Std Deviation 41.9 RDW Coeff of Juan 12.8 Plt Count 392 MPV 10.1 Sodium Potassium Chloride Carbon Dioxide Anion Gap BUN Creatinine Est Cr Clr Drug Dosing Est GFR ( Amer) Est GFR (Non-Af Amer) BUN/Creatinine Ratio Glucose Calcium Procalcitonin 0.66 H Nasal Screen MRSA (PCR) Negative 01/23/22 09:32 WBC RBC Hgb Hct MCV MCH MCHC RDW Std Deviation RDW Coeff of Juan Plt Count MPV Sodium 139 Potassium 3.6 Chloride 106 Carbon Dioxide 28 Anion Gap 5 BUN 9 Creatinine 1.42 H D Est Cr Clr Drug Dosing 57.3 Est GFR ( Amer) 61.9 Est GFR (Non-Af Amer) 53.4 BUN/Creatinine Ratio 6.3 L Glucose 117 H Calcium 8.7 Procalcitonin Nasal Screen MRSA (PCR) PG Care Time/CCT Total # of Minutes Spent Total Time Spent with Patient: Total time spent is greater than 50% in coordination of care (as documented) at patient's floor/unit and/or counseling patient: Coding Level of Care Code 80852 Subseq Hosp Care Lvl 2 Diagnoses Intractable low back pain M54.59 Vomiting R11.2 Nausea presence: with nausea Vomiting type: unspecified Fever R50.9 Fever type: unspecified ISAIAH (acute kidney injury) N17.9 Time Spent (min) 35 (1) Vomiting Nausea presence: with nausea Vomiting type: unspecified Qualified Code(s): R11.2 - Nausea with vomiting, unspecified (2) Fever Fever type: unspecified Qualified Code(s): R50.9 - Fever, unspecified
[2022-01-24] MEDS: HYDROCODONE/ACETAMOPHEN 5/325MG TAB PO PRN ×6 (00:03→22:16)
[2022-01-24] MEDS: PIPERACILLIN/TAZOBACTAM 3.375 GM in DEXTROSE 5% 100 ML IV SCH ×3 (02:01→22:16)
[2022-01-24] MEDS: SODIUM CHLORIDE 0.9% 1000ML 1,000 ML IV SCH ×2 (03:15→14:27)
[2022-01-24 06:45] LABS: Hematocrit (blood only) 35.7 % (37-47); Hemoglobin 11.9 g/dL (12.0-16.0); Mean Corpuscular Hemoglobin 29.9 pg (25-34); Mean Corpuscular Hgb Conc 33.3 g/dL (32-36); Mean Corpuscular Volume 89.7 fL (80-100); Mean Platelet Volume 9.8 fL (7.4-10.4); Platelet Count 364 K/uL (130-400); RDW Coefficient of Variation 12.8 % (11.5-14.5); RDW Standard Deviation 42.2 fL (36.4-46.3); Red Blood Count 3.98 M/uL (4.2-5.4); White Blood Count 10.37 K/uL (4.8-10.8)
[2022-01-24 07:22] LABS: BUN Creatinine Ratio 4.3 (10-20); Calcium 8.1 mg/dl (8.5-10.1); Creatinine Clr Calc Pharmacy 26.7 ml/min; Est GFR (African American) 24.6 ml/min; Est GFR (Non-African American) 21.2 ml/min; Potassium 3.5 mmol/L (3.5-5.1)
[2022-01-24] MEDS: ONDANSETRON INJ 2 MG/ML 2 ML VIAL IV PRN ×3 (12:11→21:42)
--- NOTE | 2022-01-24 13:24 | Hospitalist Progress Note ---
Date of Service January 24, 2022 Assessment & Plan (1) Intractable low back pain: Plan: Patient presents for back pain, which has been going on for some weeks prior to presentation. Etiology is uncertain, patient denies any heavy lifting or strain. Says the pain is occasionally migratory, from lower to upper back, but said pain is much improved today No evidence of PID. will obtain DEMIAN to r/o auto immune arthritides Although MRI lumbar and thoracic spine are negative, however given the evidence of fever and chills and elevated inflammatory markers, the possibility of infection is high Blood and urine cultures are negative so far, patient has been afebrile in the last 48 hrs Initially Started empiric IV vancomycin and Zosyn, but will vanc has since been discontinued on account of worsening kidney function Infectious diseases is yet to evaluate patient, will appreciate their input (2) Abdominal pain: Plan: Started complaining of abdominal pain today Will obtain CT abdomen and pelvis to rule out any pathology (3) ISAIAH (acute kidney injury): Plan: most likely a combination of effects of Toradol and Vanc, which have since been discontinued IV saline 80cc/hr receck bmp tomorrow, urine eosinophils If it continues to worsen, will consult nephrology (4) Vomiting: Plan: Resolved (5) Fever: Plan: No more fevers in the last 48 hrs Admission and Anticipated Discharge Date Admission Date: January 22, 2022 Subjective patient seen and examined, says back pain is much improved, still complains of abdominal pain Review of Systems Review of Systems: All systems reviewed are negative, apart from the ones contained in the history. Physical Exam Physical Exam: The patient is awake, alert and oriented 3, well developed and well nourished, normocephalic and atraumatic, lying in bed and in no acute distress. HEENT--PERRL, EOMI, mucous membranes and oropharynx mildly dry Neck--supple. No JVD. No bruits. Thyroid normal, trachea midline, no adenopathy. Heart--normal S1 and S2. No murmurs, rubs or gallops. Lungs--clear bilaterally, no respiratory distress, no accessory muscle use. Abdomen--normal bowel sounds and soft. Mild epigastric and left sided abdominal pain Extremities--no cyanosis or clubbing. No edema. Dermatologic--normal skin turgor, normal color, no abnormal lymph nodes, no rash. Neurologic--cranial nerves II through XII grossly intact. Rheumatologic--normal range of motion. Psychiatric--normal affect. Results & Data Results & Data ([facility]) Vital Signs (Past 12 Hours) Vital Signs Temp Resp BP Pulse Ox 01/24/22 08:05 97.7 F 16 129/86 96 PG Care Time/CCT Total # of Minutes Spent Total Time Spent with Patient: Total time spent is greater than 50% in coordination of care (as documented) at patient's floor/unit and/or counseling patient: Coding Level of Care Code 22443 Subseq Hosp Care Lvl 2 Diagnoses Intractable low back pain M54.59 ISAIAH (acute kidney injury) N17.9 Vomiting R11.2 Nausea presence: with nausea Vomiting type: unspecified Fever R50.9 Fever type: unspecified Abdominal pain R10.9 Time Spent (min) 35 (1) Vomiting Nausea presence: with nausea Vomiting type: unspecified Qualified Code(s): R11.2 - Nausea with vomiting, unspecified (2) Fever Fever type: unspecified Qualified Code(s): R50.9 - Fever, unspecified
--- NOTE | 2022-01-24 14:36 | CT Scan Report ---
CT abd pelvis wo con CLINICAL HISTORY: abdominal pain and back pain. COMPARISON STUDY: 01/18/2022 CT DOSE: 346.75 mGy.cm TECHNIQUE: Standard CT of the Abdomen and Pelvis was performed without IV contrast. The patient did not receive oral contrast. A dose lowering technique was utilized adhering to the principles of JUDITH Del Rio. FINDINGS: Lung base: The lung bases are clear. Abdominal cavity: There is no evidence for abdominal mass, adenopathy or ascites. Liver: The liver is homogeneous in attenuation on these limited noncontrast images.. Spleen: The spleen is homogeneous in attenuation on these limited noncontrast images. Pancreas: The pancreas is homogeneous in attenuation on these limited noncontrast images. Gall Bladder: The gallbladder is well distended with no evidence for cholelithiasis, wall thickening or pericholecystic edema.. Adrenal glands: The adrenal glands are normal in size and attenuation on these limited noncontrast im ages. Kidneys: The kidneys are homogeneous in attenuation on these limited noncontrast images. There is no evidence for gross renal mass, calculus or hydronephrosis bilaterally. Bowel: The bowel loops are normally placed within the abdomen and pelvis without evidence for dilatat ion or obstruction. There is no evidence for mass lesion. There are no inflammatory changes present. There is no evidence for free air. Bladder: There is no evidence for focal bladder wall thickening, calculus or diverticulum. However, t here is mild diffuse thickening of bladder wall which can be seen with cystitis. : There is no evidence for pelvic mass or adenopathy. There has been interval development of modera te free fluid within the cul-de-sac. This is most likely physiologic from rupture of an ovarian cyst. Vasculature: There is no evidence for focal aneurysmal dilatation of the abdominal aorta. Osseous structures: There is no acute osseous pathology. IMPRESSION: 1. Interval development of moderate free fluid within the cul-de-sac, most characteristic of physiolo gic fluid from rupture of an ovarian cyst. 2. Mild thickening of bladder wall which can be seen with cystitis. 3. Otherwise, no acute intra-abdominal or pelvic abnormality on these limited noncontrast images. ACT 112: Negative or not required by law. Electronically signed by: Velasquez Paulino M.D. 01/24/2022 2:33 PM
[2022-01-24] MEDS: METOCLOPRAMIDE HCL INJ 5 MG/ML 2 ML VIAL IV PRN (16:22)
[2022-01-25] MEDS: SODIUM CHLORIDE 0.9% 1000ML 1,000 ML IV SCH (02:16)
[2022-01-25] MEDS: HYDROCODONE/ACETAMOPHEN 5/325MG TAB PO PRN (05:31)
[2022-01-25] MEDS: METOCLOPRAMIDE HCL INJ 5 MG/ML 2 ML VIAL IV PRN (05:39)
[2022-01-25] MEDS ORDERED: HYDROmorphone INJ 0.5 MG/0.5 ML SYR IV STA (06:59)
--- NOTE | 2022-01-25 07:04 | Communication Note ---
Date of Service: January 25, 2022 Messaged about patient's abd pain at 630AM. She has been getting q4h prn norcos, but because of N/V, had difficulty tolerating at times. I assessed her and she has 7/10 diffuse abd pain, subjectively worse at periumbilical, but diffuse tender to light palpation. Ordering 0.1mg of IV dilaudid x 1 dose. Reviewed other options and avoiding nsaids because of the mita and IV tylenol because of the tylenol from the norcos. Reviewed chart. Would continue to workup for PID and consider pelvic exam because of continued symptoms. She denies urinary symptoms such as dysuria.
[2022-01-25 07:50] LABS: Hematocrit (blood only) 34.9 % (37-47); Hemoglobin 11.8 g/dL (12.0-16.0); Mean Corpuscular Hemoglobin 30.3 pg (25-34); Mean Corpuscular Hgb Conc 33.8 g/dL (32-36); Mean Corpuscular Volume 89.5 fL (80-100); Mean Platelet Volume 9.9 fL (7.4-10.4); Platelet Count 410 K/uL (130-400); RDW Coefficient of Variation 12.6 % (11.5-14.5); RDW Standard Deviation 41.2 fL (36.4-46.3); White Blood Count 13.32 K/uL (4.8-10.8)
[2022-01-25 08:18] LABS: BUN Creatinine Ratio 3.8 (10-20); Calcium 8.2 mg/dl (8.5-10.1); Creatinine Clr Calc Pharmacy 19.6 ml/min; Est GFR (African American) 16.9 ml/min; Est GFR (Non-African American) 14.6 ml/min; Potassium 3.8 mmol/L (3.5-5.1)
--- NOTE | 2022-01-25 09:55 | OB/GYN Consultation ---
Date of Consultation January 25, 2022 Assessment & Plan (1) Abdominal pain: CT scan is reviewed : There is no evidence for pelvic mass or adenopathy. There has been interval development of moderate free fluid within the cul-de-sac. This is most likely physiologic from rupture of an ovarian cyst. The patient really does not have pelvic pain at this time but more pain around her abdomen is palpated and she is modestly tender there I reviewed the situation with the patient she says she is modestly better however she has had some recent pain medication. I highly do not suspect pelvic inflammatory disease based on the history based on the normal CAT scan and I would consider free fluid in the pelvis physiologically normal after either a physiological ovarian cyst or even a simple ovarian cyst that ruptured Her symptoms seem much more consistent with a GI cause and even possibly appendicitis. Messaged briefly with Dr. Graves from radiology and he is somewhat concerned about appendicitis on the recent CT scan Certainly with elevated white count periumbilical pain and failure to improve I would consider appendicitis #1 on the list. Will refer back to the medical team for further consideration History of Present Illness Attending Physician: Zahira Rizzo MD History of Present Illness Asked to consult on the patient 21-year-old with history of back and abdominal pain who presented 3 days ago to the emergency room and was admitted. At the time she described largely back pain and periumbilical pain. Did not really have pelvic pain at that time she had no vaginal discharge she continues to have no vaginal discharge. She states she had regular periods but 2 weeks ago she decided to stop her control pill this was something she had been on for a while but was being assessed for another medical reason at that time just decided she would stop the pill. 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 Allergies Allergy/AdvReac Type Severity Reaction Status Date / Time doxycycline Allergy Intermediate Rash Verified 01/18/22 01:10 lactose Allergy Intermediate Gastrointestinal Verified 01/18/22 01:10 Upset Home Medications Medication Instructions Recorded Confirmed Type norgestimate 0.18 mg/0.215 mg/0.25 1 tab PO DAILY 01/18/22 01/22/22 History mg-ethinyl estradiol 25 mcg tablet (Tri-Lo-Radha) ondansetron 4 mg disintegrating 4 mg PO Q8H PRN 5 Days tab 01/20/22 01/22/22 Rx tablet Patient History Medical History No significant past medical history Surgical History History of chest tube placement as a child Social History Smoking Status: Never smoker Hx Alcohol Use: Yes Alcohol type: beer, wine and hard liquor Hx Substance Use: No Preferred Language: Nepali Communication Ability: Effective Kiss Machine Operator Required: No Beliefs That Will Affect Care: None Current Living Situation: Other Current Living Situation Comment: with roommate Feels Safe at Home: Yes Assistive Devices: None Physical Exam Gastrointestinal (Abdomen): Percussion/Palpation: + abdomen tender Results & Data ([facility]) Vital Signs (Past 12 Hours) Vital Signs Temp Pulse Resp BP Pulse Ox 01/25/22 07:59 86 127/84 01/25/22 07:11 98.6 F 59 L 16 149/93 H 96 01/24/22 22:05 97.7 F 59 L 16 120/83 99 PG Care Time/CCT Total # of Minutes Spent Total Time Spent with Patient: Total time spent is greater than 50% in coordination of care (as documented) at patient's floor/unit and/or counseling patient: Coding Level of Care Code 96500 Office/Outpt Visit, New Diagnoses Abdominal pain R10.9
[2022-01-25] MEDS: PIPERACILLIN/TAZOBACTAM 3.375 GM in DEXTROSE 5% 100 ML IV SCH (10:18)
[2022-01-25] MEDS: ONDANSETRON INJ 2 MG/ML 2 ML VIAL IV PRN (10:46)
[2022-01-25] MEDS ORDERED: STAT IV STA ×2 (11:43→18:50)
[2022-01-25] MEDS ORDERED: SODIUM BICARBONATE 8.4% 150 MEQ in DEXTROSE 5% 1,000 ML IV SCH (11:45)
--- NOTE | 2022-01-25 12:08 | Hospitalist Progress Note ---
Date of Service January 25, 2022 Assessment & Plan (1) Abdominal pain: Plan: 21-year-old white female with no significant underlying past medical history presented to the emergency department complaining of abdominal pain and low back pain with associated nausea and vomiting. -Hospitalized 01/18 through 01/20 with adenovirus. Developed mild back pain them -Since being home, abdominal pain worsened prompting her to come back to the emergency department on 01/22. -WBC count elevated at 19,000 with a left shift. In addition, procalcitonin slightly elevated at 0.66 with a CRP of 8.20. Had a low-grade fever of 100.0 F -CT scan of the abdomen and pelvis done on 01/22 showing no acute intra-abdominal process -Patient empirically treated with Zosyn/vancomycin and received 5 doses of Toradol for pain -Having persistent abdominal pain with inability to tolerate any oral intake -Plan was for repeat CT scan of the abdomen and pelvis with oral contrast but patient unable to tolerate oral contrast given vomiting (it was attempted) -Did reach out to radiology who reviewed initial CT scan and there is question of potential developing appendicitis at that time. Given her worsening presentation and inability to tolerate oral contrast for repeat CT scan, I have reached out to general surgery who is taking her for an exploratory laparoscopy with potential appendectomy this afternoon and potential appendectomy (2) ISAIAH (acute kidney injury): Plan: -Creatinine uptrending in the setting of IV hydration -On vancomycin upfront and did receive 5 doses of Toradol which has since been discontinued -Landrum catheter ordered but patient refuses. Will be placed intraoperatively for accurate I&O monitoring -Urine lytes obtained to help differentiate fractional excretion of sodium along with repeat urinalysis and culture -UA obtained on 01/22 does show +1 protein and trace blood. No edema of the low er extremities. ? Acute glomerulonephritis. -depending on FU UA, may need to collect 24 hours urine for protein. -Nephrology consulted. Spoke to Dr. Osorio who will see her. Did notes this could be an inflammatory response given underlying acute appendicitis with peritonitis. He will follow. Greatly appreciate assistance. -Patient will be converted to normosol postoperatively with follow-up labs- closely -Avoid nephrotoxic agents (such as Toradol/NSAIDs and vancomycinno need at this point) (3) Vomiting: Plan: -Clinically with presumed appendicitis (+/- rupture and associated peritonitis)--General surgery consulted. Exploratory laparoscopy today (4) Fever: Plan: - fever note dup front. has since defervesced Plan: Plan of care discussed with general surgery, nephrology, and Dr. Doyle (attending provider). Patient's mother updated Admission and Anticipated Discharge Date Admission Date: January 22, 2022 Subjective Patient seen on daily rounds today. Hospitalized 01/22 with abdominal pain, nausea, vomiting and diarrhea. At that time, she had leukocytosis of 19.61 with a left shift along with a slightly elevated procalcitonin of 0.66 and an eleva symone CRP of 8.20. CT scan of the abdomen and pelvis showed fluid in the cul-de-sac characteristic of a ruptured ovarian cyst. Mild thickening of the bladder wall. Otherwise, no intra-abdominal process seen. Patient was empirically started on Zosyn and vancomycin. Her white blood cell count has improved slightly but remains elevated at 13.32. Her creatinine was 0.66 upon presentation but has been up trending and is now 4.16 despite IV hydration. I was notified by radiology that after reviewing her CT scan, he was concerned that there could have been developing appendicitis and recommended repeat CT scan of the abdomen and pelvis with contrast. Given her uptrending creatinine, could only utilize oral contrast. This was attempted but patient unable to ingest given pain and vomiting. I have since reached out to general surgery and nephrology. Plan is to take her to the operating room for exploratory laparotomy given concern for ruptured appendicitis. Review of Systems Review of Systems: All systems reviewed and are unremarkable except as noted in HPI and below Denies fevers, chills, headache, nasal congestion, sore throat, cough, chest pain, shortness of breath, palpitations, orthopnea, PND, constipation, dysuria, hematuria, frequency, back pain, joint pain or swelling, easy bruising or bleeding, skin lesions or rashes. Physical Exam Physical Exam: General: Resting comfortably in her hospital bed. Appears mildly ill but not toxic. NAD. HEENT: Head is AT/NC. Buccal mucosa is moist and pink Neck: No JVD. Negative hepatojugular reflex Cardiac: RRR without M/G/R Lungs: CTA without W/R/R Abdomen: No abdominal bloating. Normal active X4. Abdomen is soft but exquisitely tender in all quadrants with very minimal palpation. Extremities: No peripheral clubbing cyanosis or edema Neuro: A&O X4. Cranial nerves II through XII are grossly intact. No focal neuro deficits Skin: No obvious skin lesions or rashes Psych: Appropriate affect. Pleasant and cooperative Results & Data Results & Data ([facility]) Vital Signs (Past 12 Hours) Vital Signs Temp Pulse Resp BP Pulse Ox 01/25/22 07:59 86 127/84 01/25/22 07:11 37 C 59 L 16 149/93 H 96 Laboratory Results 01/25/22 07:05 01/25/22 07:05 PG Care Time/CCT Total # of Minutes Spent Total Time Spent with Patient: Total time spent is greater than 50% in coordination of care (as documented) at patient's floor/unit and/or counseling patient: Prolonged Care Time 60 minutes including time spent discussing with radiologist, electrical prospecting engineer, general surgery, and attending provider along with review of old records Coding Level of Care Code 50134 Subseq Hosp Care Lvl 3 Diagnoses Abdominal pain R10.9 ISAIAH (acute kidney injury) N17.9 Vomiting R11.2 Nausea presence: with nausea Vomiting type: unspecified Fever R50.9 Fever type: unspecified (1) Fever Fever type: unspecified Qualified Code(s): R50.9 - Fever, unspecified (2) Vomiting Nausea presence: with nausea Vomiting type: unspecified Qualified Code(s): R11.2 - Nausea with vomiting, unspecified
--- NOTE | 2022-01-25 12:18 | Surgery Consultation ---
Date of Consultation January 25, 2022 Assessment & Plan (1) Abdominal pain: I do suspect a high likelihood of acute appendicitis. She has a 13,000 white blood cell count. Her exam clinical history and CT scan could all corroborate that. I discussed with her and her mother the options. Acute kidney injury likely secondary to dehydration primarily. Dr. Llamas is going to see her. We spoke to him and he agrees that she should proceed with surgery soon as possible and the elevated creatinine should not delay surgery. We discussed the risks which include bleeding, infection, injury to another organ, DVT, PE, NE, CVA etc. Following all this I answered her questions. We will proceed today with laparoscopic appendectomy surgery as needed. They agree with the plan as does Dr. Doyle and Dr. Llamas. 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 She has had about a 10 or 11-day history of vague abdominal pain. She is also had some nausea vomiting. The symptoms have escalated. She was readmitted. Gynecologic consultation was obtained and they felt the etiology was more likely GI in nature. CT scan was performed. Initially it was felt to be possibly a ruptured ovarian cyst however second opinion regarding the CT scan was worrisome for acute appendicitis. Her pain is in the lower abdomen. She has pain with movement. Allergies Allergy/AdvReac Type Severity Reaction Status Date / Time doxycycline Allergy Intermediate Rash Verified 01/18/22 01:10 lactose Allergy Intermediate Gastrointestinal Verified 01/18/22 01:10 Upset Home Medications Medication Instructions Recorded Confirmed Type norgestimate 0.18 mg/0.215 mg/0.25 1 tab PO DAILY 01/18/22 01/22/22 History mg-ethinyl estradiol 25 mcg tablet (Tri-Lo-Radha) ondansetron 4 mg disintegrating 4 mg PO Q8H PRN 5 Days tab 01/20/22 01/22/22 Rx tablet Patient History Medical History No significant past medical history Surgical History History of chest tube placement as a child Social History Smoking Status: Never smoker Hx Alcohol Use: Yes Alcohol type: beer, wine and hard liquor Hx Substance Use: No Preferred Language: Central African Communication Ability: Effective Camp Director Required: No Beliefs That Will Affect Care: None Current Living Situation: Other Current Living Situation Comment: with roommate Feels Safe at Home: Yes Assistive Devices: None Review of Systems Review of Systems: All systems reviewed & are unremarkable except as noted in HPI & below Physical Exam Constitutional: WD/WN, vitals as above no acute distress and not ill appearing Eyes: PERRL, conjunctivae normal, anicteric sclerae EOM intact bilaterally ENMT: external ear and nose normal, oropharynx normal Ears: no hearing impairment Neck: trachea midline, no thyromegaly Respiratory: normal respiratory effort; no respiratory distress and does not use accessory muscles Cardiovascular: Rate/Rhythm: regular rate and regular rhythm Gastrointestinal (Abdomen): Soft. Exquisitely tender in the bilateral lower abdomen. Right lower quadrant greater than left lower quadrant. Positive Rovsing. Positive heel strike. Skin: no rashes, warm and dry Psychiatric: Orientation: alert, oriented x 3 and cooperative Results & Data ([facility]) Vital Signs (Past 12 Hours) Vital Signs Temp Pulse Resp BP Pulse Ox 01/25/22 07:59 86 127/84 01/25/22 07:11 37 C 59 L 16 149/93 H 96 PG Care Time/CCT Total # of Minutes Spent Total Time Spent with Patient: Total time spent is greater than 50% in coordination of care (as documented) at patient's floor/unit and/or counseling patient: Coding Level of Care Code 74856 Inpt Consult Level 4 Diagnoses Abdominal pain R10.9 ISAIAH (acute kidney injury) N17.9 Vomiting R11.10 Acute appendicitis K35.80
--- NOTE | 2022-01-25 12:40 | Nephrology Consultation ---
Date of Consultation January 25, 2022 Assessment & Plan (1) ISAIAH (acute kidney injury): * ISAIAH due to acute appendicitis and dehydration in the setting of NSAID administration * Electrolyte balance is acceptable at this time. Patient remains clinically volume contracted. There is no acute indication for HAT BODY INSPECTOR at this time * Patient has a mild SHANNON and is on NaHCO3 gtt * Avoid further NSAID (Toradol), Vancomycin administration * Place Landrum catheter during surgery and monitor I&O's post-op * Change IVF to Normosol at 125 cc/hr post op * Monitor PRP * Discussed ISAIAH and potential need for HAT BODY INSPECTOR w/ patient and mother this morning. They understand that temporary dialysis catheter placement and HD may be necessary his hospitalization if clinical condition fails to improve or if patient develops significant electrolyte disturbances (2) Acute appendicitis: * Case discussed w/ [facility] Hospitalist team and Dr. Ennis. Plan for appendectomy this afternoon History of Present Illness Reason for Consultation: ISAIAH Attending Physician: Benito Doyle MD History of Present Illness Miss Quintanilla is a 21 year female who is seen at the request of Dr. Doyle for evaluation of ISAIAH. 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 She has no chronic medical illnesses. She has no prior h/o hematuria, proteinuria or CKD. Her baseline Cr has been 0.5. Miss Quintanilla was hospitalized 01/18 - 01/20/22 for evaluation of URI symptoms, recurrent N/V and flank pain. She was diagnosed w/ an adenovirus and discharged to home for supportive care. Miss Quintanilla returned to [facility] 01/22 with T100.4 F, WBC # 19K, low back pain and recurrent emesis. She required IV Toradol for pain control (5 doses administered) and was placed on empiric IV Vancomycin and Zosyn. Toradol and Vancomycin were stopped 01/23 when Cr gustavo to 1.4. CXR was negative for infiltrate, thoracic and lumbar MRI studies were negative for discitis/osteomyelitis. 01/[address] without IV contrast revealed structurally normal kidneys without mass/stone/obstruction. A ruptured ovarian cyst was reported. Today Cr has risen to 4.1. UO has not been measured. Patient declined Landrum catheter placement. Miss Quintanilla is now complaining of periumbilical and RLQ abdominal pain. Repeat abdominal CT is concerning for appendicitis (preliminary report). Miss Quintanilla and her mother have met w/ surgery. Appendectomy is planned for this afternoon. Allergies Allergy/AdvReac Type Severity Reaction Status Date / Time doxycycline Allergy Intermediate Rash Verified 01/18/22 01:10 lactose Allergy Intermediate Gastrointestinal Verified 01/18/22 01:10 Upset Home Medications Medication Instructions Recorded Confirmed Type norgestimate 0.18 mg/0.215 mg/0.25 1 tab PO DAILY 01/18/22 01/22/22 History mg-ethinyl estradiol 25 mcg tablet (Tri-Lo-Radha) ondansetron 4 mg disintegrating 4 mg PO Q8H PRN 5 Days tab 01/20/22 01/22/22 Rx tablet Patient History Medical History No significant past medical history Surgical History History of chest tube placement as a child Social History Smoking Status: Never smoker Hx Alcohol Use: Yes Alcohol type: beer, wine and hard liquor Hx Substance Use: No Preferred Language: Armenian Communication Ability: Effective Rn Social Services Required: No Beliefs That Will Affect Care: None Current Living Situation: Other Current Living Situation Comment: with roommate Feels Safe at Home: Yes Assistive Devices: None Review of Systems Constitutional: + fever Eyes: no problem reported Ear, Nose, Mouth, Throat: no problem reported Respiratory: no dyspnea Cardiovascular: no chest pain, no palpitations and no edema Gastrointestinal: + abdominal pain, + nausea and + vomiting Genitourinary: no dysuria and no hematuria Musculoskeletal: + back pain Integumentary: no rash Neurologic: no confusion Physical Exam Constitutional: + in distress (c/o periumbilical and RLQ abdominal discomfort) Eyes: PERRL, conjunctivae normal, anicteric sclerae ENMT: external ear and nose normal, oropharynx normal Neck: trachea midline, no thyromegaly Respiratory: normal respiratory effort, lungs clear to auscultation Cardiovascular: RRR, no murmur, no edema Gastrointestinal (Abdomen): Inspection/Auscultation: abdomen normal to inspection Percussion/Palpation: + abdomen tender (RLQ) Skin: no rashes, warm and dry Neurologic: awake; not confused Results & Data ([place]) Vital Signs (Past 12 Hours) Vital Signs Temp Pulse Resp BP Pulse Ox 01/25/22 07:59 86 127/84 01/25/22 07:11 37 C 59 L 16 149/93 H 96 Laboratory Results Laboratory Tests 01/22/22 01/25/22 01/25/22 11:42 07:05 07:05 WBC 13.32 H Hgb 11.8 L Hct 34.9 L Plt Count 410 H Sodium 140 Potassium 3.8 Chloride 110 H Carbon Dioxide 20 L BUN 16 Creatinine 4.16 H D Est GFR (Non-Af Amer) 14.6 Calcium 8.2 L Urine Color Yellow Urine Appearance Clear Urine pH 5.5 Ur Specific [place] >= 1.030 Urine Protein 1+ H Urine Glucose (UA) Negative Urine Blood Trace-intact H Urine Nitrite Negative Urine WBC 10-30 H PG Care Time/CCT Total # of Minutes Spent Total Time Spent with Patient: Total time spent is greater than 50% in coordination of care (as documented) at patient's floor/unit and/or counseling patient: Coding Level of Care Code 38832 Inpt Consult Level 5 Diagnoses ISAIAH (acute kidney injury) N17.9 Acute appendicitis K35.80
--- NOTE | 2022-01-25 13:11 | Operative Report ---
PG Post Operative Report Pre & Post Diagnosis Operation Date: 01/25/22 13:00 <No data on this case meets the specified criteria> I identified the patient and participated in the time-out.: Yes Procedure Operation Date: 01/25/22 13:00 <No data on this case meets the specified criteria> laparoscopic appendectomy Surgeon Jason Ennis, DO I attest to the content of the Intraoperative Record and any orders documented therein. Any exceptions are noted below.
--- NOTE | 2022-01-25 13:26 | Anesthesiology Consultation ---
Date of Service January 25, 2022 Assessment & Plan Chart Review Chart Review: Acceptable Risk for Surgery and Patient NOT seen in Pre Admission Testing Consults Requested none History Surgery Operation Date: 01/25/22 13:00 Proposed Procedures p Laparoscopic Appendectomy - Jason Ennis DO Height/Weight Height: 5 ft 5 in Weight: 61.5 kg Allergies Allergy/AdvReac Type Severity Reaction Status Date / Time doxycycline Allergy Intermediate Rash Verified 01/18/22 01:10 lactose Allergy Intermediate Gastrointestinal Verified 01/18/22 01:10 Upset Medications Home Medications Medication Instructions Recorded Confirmed Last Taken norgestimate 0.18 mg/0.215 mg/0.25 1 tab PO DAILY 01/18/22 01/22/22 Unknown mg-ethinyl estradiol 25 mcg tablet (Tri-Lo-Radha) ondansetron 4 mg disintegrating 4 mg PO Q8H PRN 5 Days tab 01/20/22 01/22/22 Unknown tablet Active Medications Generic Name Dose Route Start Last Admin Trade Name Freq PRN Reason Stop Dose Admin Piperacillin Sod/Tazobactam 115 mls @ 28.75 mls/hr 01/24/22 22:00 01/25/22 10:18 Sod 3.375 gm/ Dextrose IV 01/27/22 21:59 28.8 mls/hr Q12H JUAN Administration Protocol Sodium Bicarbonate 150 meq/ 1,150 mls @ 125 mls/hr 01/25/22 11:45 01/25/22 13:00 Dextrose IV 02/24/22 11:44 125 mls/hr .[id number] JUAN Administration Metoclopramide HCl 10 mg 01/24/22 16:13 01/25/22 05:39 Metoclopramide Hcl Inj 5 Mg/Ml 2 Ml Vial IV 02/23/22 16:12 10 mg Q6H PRN Administration Nausea Ondansetron HCl 4 mg 01/22/22 12:10 01/25/22 10:46 Ondansetron Inj 2 Mg/Ml 2 Ml Vial IV 02/21/22 12:09 4 mg Q4H PRN Administration Nausea Past Medical History Medical History No significant past medical history Past Surgical History Surgical History History of chest tube placement as a child Social History Smoking Status: Never smoker Hx Alcohol Use: Yes Alcohol type: beer, wine and hard liquor alcohol intake frequency: a few times a week Hx Substance Use: No substance use type: marijuana Physical Exam Vital Signs Last Vital Signs Temp 98.6 F 01/25/22 07:11 Pulse 86 01/25/22 07:59 Resp 16 01/25/22 07:11 BP 127/84 01/25/22 07:59 Pulse Ox 96 01/25/22 07:11 Testing Laboratory Results 01/25/22 07:05 01/25/22 07:05 PT 10.8 Seconds (9.0-12.0) 01/22/22 02:30 INR 1.0 (0.9-1.1) 01/22/22 02:30 APTT 26.1 Seconds (21.0-31.0) 01/22/22 02:30 Urine Color Yellow 01/22/22 11:42 Urine Appearance Clear (Clear) 01/22/22 11:42 Urine pH 5.5 (4.5-7.5) 01/22/22 11:42 Ur Specific [place] >= 1.030 (1.000-1.030) 01/22/22 11:42 Urine Protein 1+ (Negative) H 01/22/22 11:42 Urine Glucose (UA) Negative (Negative) 01/22/22 11:42 Urine Ketones Negative (Negative) 01/22/22 11:42 Urine Nitrite Negative (Negative) 01/22/22 11:42 Ur Leukocyte Esterase Negative (Negative) 01/22/22 11:42 Urine RBC 0-4 /hpf (0-4) 01/22/22 11:42 Urine WBC 10-30 /hpf (0-5) H 01/22/22 11:42 Ur Epithelial Cells 0-5 /lpf (0-5) 01/22/22 11:42 01/22/22 09:03 Aerobic Blood Culture - Preliminary Blood No growth in Aerobic bottle after 48 hours. Anaerobic Blood Culture - Final 01/22/22 08:54 Aerobic Blood Culture - Preliminary Blood No growth in Aerobic bottle after 48 hours. Anaerobic Blood Culture - Final 01/22/22 11:42 Urine Culture - Final Urine,Clean Catch No growth - less than 1,000 colonies/mL. 01/22/22 05:38 Aerobic Blood Culture - Preliminary Blood No growth in Aerobic bottle after 48 hours. Anaerobic Blood Culture - Preliminary No growth in Anaerobic bottle after 48 hours. 01/22/22 03:55 Aerobic Blood Culture - Preliminary Blood No growth in Aerobic bottle after 48 hours. Anaerobic Blood Culture - Preliminary No growth in Anaerobic bottle after 48 hours. Electrocardiogram Date: 01/22/22 Findings: + NSR @
[2022-01-25] MEDS ORDERED: fentaNYL citrate 100 MCG/2 ML VIAL ONE ×3 (13:35→15:13)
[2022-01-25] MEDS ORDERED: PROPOFOL IV EMULSION 10 MG/ML 20 ML VIAL IV ONE (13:35)
[2022-01-25] MEDS ORDERED: ONDANSETRON INJ 2 MG/ML 2 ML VIAL ONE ×2 (13:35→15:38)
[2022-01-25] MEDS ORDERED: ROCURONIUM BROMIDE 10 MG/ML 5 ML VIAL IV ONE (13:35)
[2022-01-25] MEDS ORDERED: SUCCINYLCHOLINE 100MG/5ML SYR IV ONE (13:35)
[2022-01-25] MEDS ORDERED: DEXAMETHASONE SOD INJ 4 MG/ML VIAL ONE (13:35)
[2022-01-25] MEDS ORDERED: LIDOCAINE 2% 2 ML VIAL/AMP(20MG/ML) INFIL ONE (13:35)
[2022-01-25] MEDS ORDERED: MIDAZOLAM HCL 1 MG/ML 2ML VIAL ONE (13:35)
[2022-01-25] MEDS ORDERED: BUPIVACAINE 0.5 % 5 MG/1 ML MPF 30ML VIAL ONE (13:41)
[2022-01-25] MEDS ORDERED: EPINEPHrine INJ 1 MG/ML AMP ONE (13:42)
[2022-01-25] MEDS ORDERED: ACETAMINOPHEN 1000 MG/100 ML IV IV ONE (13:44)
[2022-01-25] MEDS ORDERED: ATROPINE SULFATE 0.1 MG/ML 10ML SYR IV PRN (13:56)
[2022-01-25] MEDS ORDERED: ePHEDrine sulfate 50 MG/ML AMP IV PRN (13:56)
[2022-01-25] MEDS ORDERED: ONDANSETRON INJ 2 MG/ML 2 ML VIAL IV PRN (13:56)
[2022-01-25] MEDS ORDERED: NEOSTIGMINE METHYLSULFATE 1 MG/ML 10ML VIAL ONE (14:30)
[2022-01-25] MEDS ORDERED: GLYCOPYRROLATE 0.2 MG/ML VIAL ONE (14:30)
--- NOTE | 2022-01-25 15:08 | Operative Report ---
PG Post Operative Report Pre & Post Diagnosis Operation Date: 01/25/22 13:00 Pre-Op Diagnosis: Acute Appendicitis Post-Op Diagnosis: Acute Appendicitis Endometriosis ruptured ovarian cyst I identified the patient and participated in the time-out.: Yes Procedure Operation Date: 01/25/22 13:00 Actual Procedures p Laparoscopic Appendectomy, Peritoneal Biopsy, Ablation of Endometriosis(Not Applicable) - Jason Ennis DO Surgeon Jason Ennis DO Human Resources Compliance Manager mckinley Ferro Estimated Blood Loss 5 Findings Consistent with Post-Op Diagnosis Specimens 1. appendix 2. peritoneal biopsy Description of Procedure After informed consent was obtained patient was taken to the operating room and placed in supine position. After successful intubation a Landrum catheter was sterilely placed and the abdomen was sterilely prepped and draped in usual fashion. A periumbilical incision was made with an 11 blade scalpel. This was carried down through the soft tissue using cautery. The anterior rectus fascia was opened using cautery and two #0 Vicryl stay sutures were placed. Peritoneum was elevated with hemostats and incised under direct vision using a Metzenbaum scissor. A finger sweep was performed. A 12 mm Ramirez trocar was placed and the abdomen was insufflated to 18 mmHg. The laparoscope was inserted and the abdomen was examined in 360 degrees. A suprapubic 5 mm port and a left lower quadrant 12 mm port were placed under direct vision. Upon inspection there were several findings. The appendix itself had a normal appearance other than the distal one third appeared hyperemic and firm consistent with a tip appendicitis. I began by making a small window in the mesentery of the appendix. I transected the appendix at its base with the cecum using a [place] mohan cartridge 60 mm stapler. I then transected the mesentery of the appendix using an additional brown cartridge stapler. The appendix was placed into an Endo Catch bag and removed from the camera port site. The mesenteric staple line was oozing so I clipped this using a clip toddler teacher. I then looked into the pelvis. There was a large amount of mary alice-colored fluid. There is also a small hole in the left ovary consistent with a ruptured left ovarian cyst. The fluid was suctioned out. There were several brownish-purple punctate peritoneal lesions which appeared to be likely mild endometriosis. I was able to grasp the peritoneum and used a laparoscopic scissor to excise a small portion and sent to pathology. I then used a [place] dissector tip to touch the remainder punctate lesions and gently cauterized them. These involve primarily peritoneal surface and did not involve her fallopian tubes ovaries bowel etc. We thoroughly irrigated the pelvis. We also thoroughly irrigated the right lower quadrant. I ran the small bowel from the terminal ileum backwards for several feet and this all appeared normal. There was no evidence of any inflammatory bowel. Rectum and sigmoid colon looked normal as did the stomach liver gallbladder etc. The only other abnormality showed some mesenteric lymphadenopathy. These are only slightly e nlarged. The risk benefit did not warrant biopsy of 1 of these. Final look around the abdomen showed adequate hemostasis and no other abnormalities. The trochars were all removed and the abdomen desufflated. The fascia of the camera port as well as a left lower quadrant port was closed using 0 Vicryl in [id number] fashion. Wounds were all irrigated and closed using 4-0 Monocryl. Marcaine with epinephrine were injected around them for postoperative analgesia. Benzoin Steri-Strips gauze and tape were used as a dressing. The patient was awakened extubated transferred recovery in stable condition. My physician email marketing assistant was present to the entire case was instrumental in helping to prep the patient running the camera and assisting with the laparoscopy wound closure and dressing placement. I attest to the content of the Intraoperative Record and any orders documented therein. Any exceptions are noted below.
[2022-01-25] MEDS: fentaNYL citrate 100 MCG/2 ML VIAL IV PRN ×4 (15:14→15:34)
--- NOTE | 2022-01-25 15:56 | Anesthesiology Progress Note ---
Date of Service January 25, 2022 Anesthesia Post Procedure Vital Signs Vital Signs: Temp Pulse Pulse Resp BP Pulse Ox 01/25/22 15:50 97.7 F 76 20 129/81 96 01/25/22 15:40 77 18 131/84 97 01/25/22 15:30 81 18 131/83 99 01/25/22 15:20 89 24 130/87 100 01/25/22 15:10 96 H 21 129/85 100 01/25/22 15:02 97.9 F 97 H 18 131/94 100 01/25/22 07:59 86 127/84 01/25/22 07:11 98.6 F 59 L 16 149/93 H 96 01/24/22 22:05 97.7 F 59 L 16 120/83 99 Pain Intensity Bilateral Back: Pain Intensity: 8 Abdomen: Pain Intensity: 8 Transfer of Care Handoff Completed per policy Notes Mental Status: alert / awake / arousable and participated in evaluation Patient Amnestic to Procedure: Yes Nausea / Vomiting: adequately controlled Pain: adequately controlled Airway Patency, RR, SpO2: stable & adequate BP & HR: stable & adequate Hydration State: stable & adequate Anesthetic Complications: no major complications apparent and Pt Satisfied with anesthetic care
[2022-01-25] MEDS ORDERED: ACETAMINOPHEN 1000 MG/100 ML IV IV SCH (16:14)
[2022-01-25] MEDS ORDERED: MoRPHine SULFATE 2 MG/ML CARP IV PRN (16:14)
[2022-01-25] MEDS ORDERED: NORMOSOL-R 1,000 ML IV SCH (16:14)
[2022-01-25] MEDS ORDERED: MoRPHine SULFATE 4 MG/ML 1 ML CARP\\VIAL IV PRN (16:14)
[2022-01-25] MEDS: ACETAMINOPHEN 1,000 MG/100 ML VIAL IV SCH (16:30)
[2022-01-25 18:08] LABS: BUN Creatinine Ratio 3.9 (10-20); Calcium 8.1 mg/dl (8.5-10.1); Creatinine Clr Calc Pharmacy 18.8 ml/min; Est GFR (African American) 16.1 ml/min; Est GFR (Non-African American) 13.9 ml/min; Phosphorus 5.6 mg/dl (2.5-4.9); Potassium 3.9 mmol/L (3.5-5.1)
[2022-01-25] MEDS ORDERED: HYDROmorphone INJ 0.5 MG/0.5 ML SYR IV PRN (19:09)
[2022-01-25] MEDS: SODIUM BICARBONATE 8.4% 150 MEQ in DEXTROSE 5% 1,000 ML IV SCH (19:30)
[2022-01-25] MEDS: HYDROmorphone INJ 1 MG/ML SYRINGE IV PRN (19:30)
[2022-01-25 19:56] LABS: Appearance Urine Clear (Clear); Bilirubin Urine Negative (Negative); Blood Urine Negative (Negative); Color Urine Yellow; Glucose Urine UA Negative (Negative); Ketones Urine 1+ (Negative); Leukocyte Esterase Urine Negative (Negative); Nitrite Urine Negative (Negative); Protein Urine Negative (Negative); Specific Gravity Urine 1.009 (1.000-1.030); Urobilinogen Urine Negative (Negative)
[2022-01-25 20:16] LABS: Creatinine Urine Random 36.5 mg/dl
[2022-01-26] MEDS: HYDROmorphone INJ 1 MG/ML SYRINGE IV PRN ×6 (00:31→22:01)
[2022-01-26] MEDS: ACETAMINOPHEN 1,000 MG/100 ML VIAL IV SCH ×3 (00:34→16:58)
[2022-01-26] MEDS: SODIUM BICARBONATE 8.4% 150 MEQ in DEXTROSE 5% 1,000 ML IV SCH (04:26)
[2022-01-26 06:48] LABS: Hematocrit (blood only) 35.3 % (37-47); Hemoglobin 12.2 g/dL (12.0-16.0); Mean Corpuscular Hemoglobin 30.1 pg (25-34); Mean Corpuscular Hgb Conc 34.6 g/dL (32-36); Mean Corpuscular Volume 87.2 fL (80-100); Mean Platelet Volume 9.7 fL (7.4-10.4); Platelet Count 529 K/uL (130-400); RDW Coefficient of Variation 12.4 % (11.5-14.5); RDW Standard Deviation 39.9 fL (36.4-46.3); Red Blood Count 4.05 M/uL (4.2-5.4); White Blood Count 11.92 K/uL (4.8-10.8)
[2022-01-26 07:09] LABS: BUN Creatinine Ratio 4.1 (10-20); Calcium 8.1 mg/dl (8.5-10.1); Creatinine Clr Calc Pharmacy 19.4 ml/min; Est GFR (African American) 16.7 ml/min; Est GFR (Non-African American) 14.4 ml/min; Magnesium 1.9 mg/dl (1.7-2.4); Potassium 3.8 mmol/L (3.5-5.1)
[2022-01-26] MEDS ORDERED: NORMOSOL-R 1,000 ML IV SCH (07:30)
--- NOTE | 2022-01-26 08:24 | Nephrology Progress Note ---
Date of Service January 26, 2022 Assessment & Plan (1) ISAIAH (acute kidney injury): Plan: * ISAIAH due to acute appendicitis and dehydration in the setting of NSAID administration * Afebrile overnight. Hemodynamically stable. Nonoliguric * Cr improved from 4.3 --> 4.19 * Electrolyte balance is acceptable. No acute indication for HD at this time * Hold IVF and encourage oral hydration * Avoid further NSAID (Toradol), Vancomycin administration * Monitor PRP (2) Acute appendicitis: Plan: * POD #1 appendectomy. Incidentally found to have endometriosis Admission and Anticipated Discharge Date Admission Date: January 22, 2022 Subjective Miss Quintanilla was evaluated in her hospital room this morning. She reports that her abdominal discomfort is controlled and her nausea has markedly improved. She is tolerating small amounts of a liquid diet. Landrum catheter is in place draining clear, yellow urine Review of Systems Constitutional: no fever Eyes: no problem reported Ear, Nose, Mouth, Throat: no problem reported Respiratory: no dyspnea Cardiovascular: no chest pain, no palpitations and no edema Gastrointestinal: no abdominal pain Genitourinary: no dysuria and no hematuria Integumentary: no rash Neurologic: no confusion Physical Exam Constitutional: not in distress (periumbilical and RLQ abdominal discomfort have resolved) Eyes: PERRL, conjunctivae normal, anicteric sclerae ENMT: external ear and nose normal, oropharynx normal Neck: trachea midline, no thyromegaly Respiratory: normal respiratory effort, lungs clear to auscultation Cardiovascular: RRR, no murmur, no edema Gastrointestinal (Abdomen): Inspection/Auscultation: abdomen normal to inspection and + hypoactive bowel sounds Percussion/Palpation: abdomen nontender Skin: no rashes, warm and dry Neurologic: awake; not confused Results & Data ([facility]) Vital Signs (Past 12 Hours) Vital Signs Temp Pulse Pulse Resp BP Pulse Ox Pulse Ox 01/26/22 07:54 36.8 C 63 20 116/76 95 01/26/22 03:08 37.1 C 65 18 130/79 94 01/26/22 03:00 97 01/25/22 23:59 77 01/25/22 23:30 37.2 C 74 18 136/92 95 Laboratory Results Laboratory Tests 01/22/22 01/22/22 01/25/22 02:30 02:30 17:55 WBC Hgb Hct Plt Count INR 1.0 PTT Ratio 0.9 Sodium Potassium Chloride Carbon Dioxide BUN Creatinine Glucose Calcium Albumin 4.2 Urine Color Yellow Urine Appearance Clear Urine pH 5.0 Ur Specific [place] 1.009 Urine Protein Negative Urine Blood Negative Ur Leukocyte Esterase Negative 01/26/22 01/26/22 06:07 06:07 WBC 11.92 H Hgb 12.2 Hct 35.3 L Plt Count 529 H INR PTT Ratio Sodium 137 Potassium 3.8 Chloride 101 Carbon Dioxide 26 BUN 17 Creatinine 4.19 H Glucose 184 H Calcium 8.1 L Albumin Urine Color Urine Appearance Urine pH Ur Specific [place] Urine Protein Urine Blood Ur Leukocyte Esterase PG Care Time/CCT Total # of Minutes Spent Total Time Spent with Patient: Total time spent is greater than 50% in coordination of care (as documented) at patient's floor/unit and/or counseling patient: Coding Level of Care Code 94897 Subseq Hosp Care Lvl 3 Diagnoses ISAIAH (acute kidney injury) N17.9 Acute appendicitis K35.80
--- NOTE | 2022-01-26 09:43 | Surgery Progress Note ---
Date of Service January 26, 2022 Assessment & Plan (1) Acute appendicitis: Plan: doing as expected POD 1 can advance as tolerated. d/c plans per primary service and nephrology path pending (2) ISAIAH (acute kidney injury): Admission and Anticipated Discharge Date Admission Date: January 22, 2022 Subjective pt seen. having surgical discomfort but pre-op pain improved/resolved. flo diet. Physical Exam Physical Exam: alert. nad abd: soft. expected tenderness. Results & Data ([facility]) Vital Signs (Past 12 Hours) Vital Signs Temp Pulse Pulse Resp BP Pulse Ox Pulse Ox 01/26/22 07:54 36.8 C 63 20 116/76 95 01/26/22 03:08 37.1 C 65 18 130/79 94 01/26/22 03:00 97 01/25/22 23:59 77 01/25/22 23:30 37.2 C 74 18 136/92 95 PG Care Time/CCT Total # of Minutes Spent Total Time Spent with Patient: Total time spent is greater than 50% in coordination of care (as documented) at patient's floor/unit and/or counseling patient: Coding Level of Care Code None Diagnoses Acute appendicitis K35.80 ISAIAH (acute kidney injury) N17.9
--- NOTE | 2022-01-26 10:55 | Hospitalist Progress Note ---
Date of Service January 26, 2022 Assessment & Plan (1) Abdominal pain: Plan: 21-year-old white female with no significant underlying past medical history presented to the emergency department complaining of abdominal pain and low back pain with associated nausea and vomiting--clinically consistent with acute appendicitis -Hospitalized 01/18 through 01/20 with adenovirus. Developed mild back pain then -Since being home, abdominal pain worsened prompting her to come back to the emergency department on 01/22. -WBC count elevated at 19,000 with a left shift. In addition, procalcitonin slightly elevated at 0.66 with a CRP of 8.20. Had a low-grade fever of 100.0 F -CT scan of the abdomen and pelvis done on 01/22 showing no acute intra-abdominal process -Patient empirically treated with Zosyn/vancomycin and received 5 doses of Toradol for pain -Having persistent abdominal pain with inability to tolerate any oral intake -Plan was for repeat CT scan of the abdomen and pelvis with oral contrast but patient unable to tolerate oral contrast given vomiting (it was attempted) -Did reach out to radiology who reviewed initial CT scan and there is question of potential developing appendicitis at that time. Given her worsening presentation and inability to tolerate oral contrast for repeat CT scan, general surgery consulted -POD#[address] Ennis on with appendectomy and ablation of endometriosis (incidental finding) -Tolerating oral intake, pain control ordered with Dilaudid -Encourage ambulation/sitting up in chair, incentive spirometer use (2) ISAIAH (acute kidney injury): Plan: -Creatinine uptrending on 01/25 in the setting of IV hydration, empiric vancomycin and 5 doses of Toradol (Toradol and Vancomycin since discontinued) -Urine lytes obtained to help differentiate FENa as well as repeat UA and urine C&S -Nephrology consulted, seen by Dr. Llamas. Did note this could be an inflammatory response given underlying acute appendicitis with peritonitis. He will follow. Greatly appreciate assistance. -Patient converted to normosol postoperatively and close lab f/u -Avoid nephrotoxic agents (such as Toradol/NSAIDs and vancomycinno need at this point) -Creatinine slowly trending down (peaked at 4.3 01/25 afternoon but this AM labs 4.19) -Repeat UA w/o protein and no evidence of infection -Dr. Llamas has seen on rounds this AM, d/c'd Normosol and is encouraging oral intake, no plans for LABORER ORCHARD at this time -Repeat labs in AM (3) Vomiting: Plan: -Clinically with presumed appendicitis (+/- rupture and associated peritonitis)--as above, no further vomiting post-operatively Plan: Transfer to med/surg Repeat labs in AM Encourage ambulation Should be able to d/c avery this afternoon Will provide update to patient's mother this afternoon when she arrives to visit Plan d/w DR. Doyle Admission and Anticipated Discharge Date Admission Date: January 22, 2022 Subjective Patient seen on daily rounds. She is pod#1 s/p alp appendectomy and ablation of endometriosis. She reports that she is still experiencing belly pain but improved shortly after pain medications. She denies flatus. Denies n/v, fever, chills, chest pain, or dyspnea. She is tolerating clear liquids. Avery remains in place with good output. Review of Systems Review of Systems: All systems reviewed and are unremarkable except as noted i n HPI and below Denies fevers, chills, headache, nasal congestion, sore throat, cough, chest pain, shortness of breath, palpitations, orthopnea, PND, n/v/d, constipation, dysuria, hematuria, frequency, back pain, joint pain or swelling, easy bruising or bleeding, skin lesions or rashes. Physical Exam Physical Exam: GENERAL: 21 yo well-developed, well-nourished WF. NAD. LUNGS: Clear to auscultation bilaterally. No W/R/R. CARDIOVASCULAR: Regular rate and rhythm. No M/G/R. No JVD. ABDOMEN: Soft, diffusely tender to palp, nondistended, BS present in all 4 quad. EXTREMITIES: No edema. Non-tender. Peripheral pulses +2/4. NEUROLOGIC: A&O x3. PSYCHIATRIC: Cooperative. Appropriate mood and affect. SKIN: small lap incisions noted over abdomen, no other skin lesions/rashes appreciated Results & Data Results & Data ([facility]) Vital Signs (Past 12 Hours) Vital Signs Temp Pulse Pulse Resp BP Pulse Ox Pulse Ox 01/26/22 07:54 36.8 C 63 20 116/76 95 01/26/22 03:08 37.1 C 65 18 130/79 94 01/26/22 03:00 97 01/25/22 23:59 77 01/25/22 23:30 37.2 C 74 18 136/92 95 Laboratory Results 01/26/22 06:07 01/26/22 06:07 PG Care Time/CCT Total # of Minutes Spent Total Time Spent with Patient: Total time spent is greater than 50% in coordination of care (as documented) at patient's floor/unit and/or counseling patient: Coding Level of Care Code 32934 Subseq Hosp Care Lvl 2 Diagnoses Abdominal pain R10.9 ISAIAH (acute kidney injury) N17.9 Vomiting R11.2 Nausea presence: with nausea Vomiting type: unspecified (1) Vomiting Nausea presence: with nausea Vomiting type: unspecified Qualified Code(s): R11.2 - Nausea with vomiting, unspecified
[2022-01-26] MEDS: ONDANSETRON INJ 2 MG/ML 2 ML VIAL IV PRN (12:44)
[2022-01-26 13:11] LABS: Anti Nuclear Antibody Screen NEGATIVE (NEGATIVE)
[2022-01-26] MEDS ORDERED: HYDROmorphone INJ 0.5 MG/0.5 ML SYR IV PRN (14:58)
[2022-01-26] MEDS ORDERED: HYDROmorphone INJ 0.5 MG/0.5 ML SYR IV STA (23:27)
--- NOTE | 2022-01-26 23:33 | Communication Note ---
Date of Service: January 26, 2022 Notified of severe generalized abd pain despite dilaudid 1mg 1 hour prior. Exam: Diffuse abd ttp, w/ voluntary guarding. Checking kub. Ordering dilaudid 0.25mg. reviewed KUB: no free air. prominent bowel loops consistent w/ constipation vs early ileus. patient has had a lot of pain medications in past week. considered opiate induced constipation. can consider Relistor if bowel regimen ineffective. ordered dulcolax suppository; patient refused. ordered miralax q8h scheduled. avoid lactulose as patient has lactose intolerance and lactulose has more side effects of bloating than miralax. Please reiterate to avoid nsaids especially in outpatient setting because of the ISAIAH.
[2022-01-27] MEDS: ACETAMINOPHEN 1,000 MG/100 ML VIAL IV SCH ×2 (00:04→08:12)
[2022-01-27] MEDS ORDERED: bisacodyL 10 MG SUPP PR STA (01:23)
[2022-01-27] MEDS: POLYETHYLENE (MIRALAX) 17 GM PACK PO SCH ×3 (02:35→20:55)
[2022-01-27] MEDS ORDERED: HYDROmorphone INJ 0.5 MG/0.5 ML SYR IV STA (07:56)
[2022-01-27] MEDS ORDERED: oxyCODONE/ACETAMINOPHEN 5mg/325mg TAB PO PRN ×3 (08:25→16:28)
--- NOTE | 2022-01-27 08:32 | Surgery Progress Note ---
Date of Service January 27, 2022 Assessment & Plan (1) Acute appendicitis: Plan: POD 2 lap tj RAMOS noted, may be 3-4 days before she has BM after surgery, miralax given will start Percocet path pending As above. Doing as expected. Trying to ambulate more if possible. Changed to oral pain medications. (2) ISAIAH (acute kidney injury): Admission and Anticipated Discharge Date Admission Date: January 22, 2022 Subjective c/o pain, constipation, tolerating regular diet Physical Exam Gastrointestinal (Abdomen): Inspection/Auscultation: abdomen not distended Percussion/Palpation: abdomen soft Results & Data ([facility]) Vital Signs (Past 12 Hours) Vital Signs Temp Pulse Resp BP Pulse Ox 01/26/22 22:36 36.6 C 58 L 16 119/85 99 PG Care Time/CCT Total # of Minutes Spent Total Time Spent with Patient: Total time spent is greater than 50% in coordination of care (as documented) at patient's floor/unit and/or counseling patient: Coding Level of Care Code None Diagnoses Acute appendicitis K35.80 ISAIAH (acute kidney injury) N17.9
[2022-01-27 08:44] LABS: Hemoglobin 12.4 g/dL (12.0-16.0); Mean Corpuscular Hgb Conc 34.4 g/dL (32-36); Mean Corpuscular Volume 87.2 fL (80-100); Mean Platelet Volume 9.8 fL (7.4-10.4); Platelet Count 485 K/uL (130-400); RDW Coefficient of Variation 12.5 % (11.5-14.5); RDW Standard Deviation 40.1 fL (36.4-46.3); Red Blood Count 4.13 M/uL (4.2-5.4); White Blood Count 12.36 K/uL (4.8-10.8)
--- NOTE | 2022-01-27 08:49 | Nephrology Progress Note ---
Date of Service January 27, 2022 Assessment & Plan (1) ISAIAH (acute kidney injury): Plan: * ISAIAH due to acute appendicitis and dehydration in the setting of NSAID administration * Afebrile overnight. Hemodynamically stable. Nonoliguric * Cr improved from 4.3 --> 3.79 * Mild hypokalemia. No acute indication for HD at this time * Will order KCl 20 mEq IV this am. Encourage oral hydration * Recheck PRP at 1300 hrs today and in am * Recommend avoid further NSAID (Toradol), Vancomycin administration (2) Acute appendicitis: Plan: * Laparoscopy w/ appendectomy 01/25/22 * Appendix pathology report - pending (3) Endometriosis: Plan: * 01/25/22 Laparoscopy - incidentally found to have endometriosis s/p peritoneal biopsy and ablation of endometrial lesions Admission and Anticipated Discharge Date Admission Date: January 22, 2022 Subjective Miss Quintanilla was evaluated in her hospital room this morning. She reports discomfort at her abdominal incision sites. She is tolerating small amounts of a liquid diet and reports + flatus. Landrum catheter is in place draining clear, yellow urine Review of Systems Constitutional: no fever Eyes: no problem reported Ear, Nose, Mouth, Throat: no problem reported Respiratory: no dyspnea Cardiovascular: no chest pain, no palpitations and no edema Gastrointestinal: no abdominal pain Genitourinary: no dysuria and no hematuria Integumentary: no rash Neurologic: no confusion Physical Exam Constitutional: no acute distress Eyes: PERRL, conjunctivae normal, anicteric sclerae ENMT: external ear and nose normal, oropharynx normal Neck: trachea midline, no thyromegaly Respiratory: normal respiratory effort, lungs clear to auscultation Cardiovascular: RRR, no murmur, no edema Gastrointestinal (Abdomen): Inspection/Auscultation: abdomen normal to inspection and + hypoactive bowel sounds Percussion/Palpation: abdomen nontender Skin: no rashes, warm and dry Neurologic: awake; not confused Results & Data ([facility]) Vital Signs (Past 12 Hours) Vital Signs Temp Pulse Resp BP Pulse Ox 01/26/22 22:36 36.6 C 58 L 16 119/85 99 Laboratory Results Laboratory Tests 01/25/22 01/26/22 01/27/22 17:15 06:07 08:09 WBC Hgb Hct Plt Count Sodium 138 Potassium 3.0 L D Chloride 99 Carbon Dioxide 29 BUN 17 Creatinine 4.32 H 4.19 H 3.79 H D Calcium 8.6 Magnesium 1.9 01/27/22 08:09 WBC 12.36 H Hgb 12.4 Hct 36.0 L Plt Count 485 H Sodium Potassium Chloride Carbon Dioxide BUN Creatinine Calcium Magnesium Diagnostic Findings 01/26 Urine for eosinophils: No significant number of eosinophils identified 01/26 Appendix and peritoneal biopsies - pending PG Care Time/CCT Total # of Minutes Spent Total Time Spent with Patient: Total time spent is greater than 50% in coordination of care (as documented) at patient's floor/unit and/or counseling patient: Coding Level of Care Code 75080 Subseq Hosp Care Lvl 3 Diagnoses ISAIAH (acute kidney injury) N17.9 Acute appendicitis K35.80 Endometriosis N80.9
--- NOTE | 2022-01-27 09:04 | XRay Report ---
KUB HISTORY: severe generalized abdominal pain COMPARISON: None. FINDINGS: Mildly dilated gas-filled loops of large or small bowel seen throughout the abdomen. This f avors a mild ileus. There are surgical clips within the right lower quadrant suggesting prior appende ctomy. Contrast is seen within the colon. Soft tissue density within the deep pelvis may represent a mildly distended bladder. No renal calculi. No ureteral calculi. No pneumoperitoneum or pneumatosis. IMPRESSION: 1. Mildly dilated gas-filled loops of large an small bowel seen throughout the abdomen suggestive of a mild postoperative ileus. 2. Soft tissue density within the deep pelvis may represent a mildly distended bladder. ACT 112: Negative or not required by law. Electronically signed by: Sean Chaudhry M.D. 01/27/2022 9:02 AM
[2022-01-27 09:28] LABS: BUN Creatinine Ratio 4.5 (10-20); Calcium 8.6 mg/dl (8.5-10.1); Creatinine Clr Calc Pharmacy 21.5 ml/min; Est GFR (African American) 18.9 ml/min; Est GFR (Non-African American) 16.3 ml/min
[2022-01-27] MEDS: ONDANSETRON INJ 2 MG/ML 2 ML VIAL IV PRN (09:44)
[2022-01-27] MEDS ORDERED: POTASSIUM CHLORIDE CRTAB 20 MEQ TABCR PO STA (10:25)
[2022-01-27] MEDS ORDERED: HYDROmorphone INJ 0.5 MG/0.5 ML SYR IV PRN (10:47)
--- NOTE | 2022-01-27 10:58 | Hospitalist Progress Note ---
Date of Service January 27, 2022 Assessment & Plan (1) Abdominal pain: Plan: 21-year-old white female with no significant underlying past medical history presented to the emergency department complaining of abdominal pain and low back pain with associated nausea and vomiting--clinically consistent with acute appendicitis -Hospitalized 01/18 through 01/20 with adenovirus. Developed mild back pain then -Since being home, abdominal pain worsened prompting her to come back to the emergency department on 01/22. -WBC count elevated at 19,000 with a left shift. In addition, procalcitonin slightly elevated at 0.66 with a CRP of 8.20. Had a low-grade fever of 100.0 F -CT scan of the abdomen and pelvis done on 01/22 showing no acute intra-abdominal process -Patient empirically treated with Zosyn/vancomycin and received 5 doses of Toradol for pain -Having persistent abdominal pain with inability to tolerate any oral intake -Plan was for repeat CT scan of the abdomen and pelvis with oral contrast but patient unable to tolerate oral contrast given vomiting (it was attempted) -Did reach out to radiology who reviewed initial CT scan and there is question of potential developing appendicitis at that time. Given her worsening presentation and inability to tolerate oral contrast for repeat CT scan, general surgery consulted -POD#[address] Ennis on with appendectomy and ablation of endometriosis (incidental finding) -Tolerating oral intake, pain control ordered, appears GS ordered Percocet, will change Dilaudid to only be utilized for breakthrough pain -Encourage ambulation/sitting up in chair, incentive spirometer use (2) ISAIAH (acute kidney injury): Plan: -Creatinine uptrending on 01/25 in the setting of IV hydration, empiric vancomycin and 5 doses of Toradol (Toradol and Vancomycin since discontinued) -Urine lytes obtained to help differentiate FENa as well as repeat UA and urine C&S -Nephrology consulted, seen by Dr. Llamas. Did note this could be an infl ammatory response given underlying acute appendicitis with peritonitis. He will follow. Greatly appreciate assistance. -Patient converted to normosol postoperatively and close lab f/u -Avoid nephrotoxic agents (such as Toradol/NSAIDs and vancomycinno need at this point) -Creatinine slowly trending down (peaked at 4.3-->4.19-->3.79) -Repeat UA w/o protein and no evidence of infection -Repeat labs ordered for this afternoon and in AM by nephrology (3) Hypokalemia: Plan: -Potassium supplementation ordered Plan: Follow up labs as outlined above Encourage ambulation Plan d/w Dr. Doyle Admission and Anticipated Discharge Date Admission Date: January 22, 2022 Subjective Patient was seen on daily rounds this morning. She is currently awake, lying in bed, continues to c/o abdominal pain. Landrum removed 01/26, peeing w/o issue. Also c/o nausea, no vomiting. Afebrile overnight and this AM. Passing flatus. No cp or dyspnea. Review of Systems Review of Systems: All systems reviewed and are unremarkable except as noted in HPI and below Denies fevers, chills, headache, nasal congestion, sore throat, cough, chest pain, shortness of breath, palpitations, orthopnea, PND, v/d, constipation, dysuria, hematuria, frequency, back pain, joint pain or swelling, easy bruising or bleeding, skin lesions or rashes. Physical Exam Physical Exam: GENERAL: 21 yo well-developed, well-nourished WF. NAD. LUNGS: Clear to auscultation bilaterally. No W/R/R. CARDIOVASCULAR: Regular rate and rhythm. No M/G/R. ABDOMEN: Soft, diffusely tender to palp, nondistended, BS present in all 4 quad. EXTREMITIES: No edema. Non-tender. Peripheral pulses +2/4. NEUROLOGIC: A&O x3. PSYCHIATRIC: Cooperative. Appropriate mood and affect. SKIN: small lap incisions noted over abdomen, no other skin lesions/rashes appreciated Results & Data Results & Data ([facility]) Vital Signs (Past 12 Hours) Vital Signs Temp Pulse Resp BP Pulse Ox 01/27/22 08:00 36.6 C 58 L 18 134/88 97 Laboratory Results 01/27/22 08:09 01/27/22 08:09 PG Care Time/CCT Total # of Minutes Spent Total Time Spent with Patient: Total time spent is greater than 50% in coordination of care (as documented) at patient's floor/unit and/or counseling patient: Coding Level of Care Code 90854 Subseq Hosp Care Lvl 2 Diagnoses Abdominal pain R10.9 ISAIAH (acute kidney injury) N17.9 Hypokalemia E87.6
[2022-01-27] MEDS: POTASSIUM CHLORIDE / WTR 10 MEQ/100 ML PLCT IV SCH ×2 (11:06→11:24)
[2022-01-27] MEDS ORDERED: ACETAMINOPHEN 325 MG TAB PO PRN (16:29)
[2022-01-27] MEDS: LORazepam 0.5 MG TAB PO PRN (16:40)
[2022-01-27] MEDS: oxyCODONE/ACETAMINOPHEN 5mg/325mg TAB PO PRN (18:45)
[2022-01-28] MEDS: oxyCODONE/ACETAMINOPHEN 5mg/325mg TAB PO PRN ×4 (02:17→21:00)
[2022-01-28] MEDS: LORazepam 0.5 MG TAB PO PRN (02:23)
[2022-01-28] MEDS ORDERED: POTASSIUM CHLORIDE 10 MEQ TABCR PO STA (02:51)
--- NOTE | 2022-01-28 02:53 | Communication Note ---
Date of Service: January 28, 2022 Noticed K of 3.0 from 01/27/22 AM> Nephrology had orderd 2 bags of meq KCL IV but patient had refused the second bag. Ordering 10meq KCl tablet x1. Repleting cautiously in context of renal function. Follow AM BMP and will likely need further repletion.
[2022-01-28] MEDS: POLYETHYLENE (MIRALAX) 17 GM PACK PO SCH ×3 (08:44→21:01)
--- NOTE | 2022-01-28 09:00 | Surgery Progress Note ---
Date of Service January 28, 2022 Assessment & Plan (1) History of laparoscopic appendectomy: Plan: Doing well postoperatively. Postoperative instructions given. We will sign off. Follow-up with me in 1 to 2 weeks Admission and Anticipated Discharge Date Admission Date: January 22, 2022 Subjective Patient seen. No new complaints. Physical Exam Physical Exam: Alert. No acute distress Abdomen is soft with expected incisional tenderness Results & Data ([facility]) Vital Signs (Past 12 Hours) Vital Signs Temp Pulse Resp BP Pulse Ox 01/28/22 08:39 54 L 138/91 01/28/22 08:11 36.4 C L 55 L 16 143/92 H 97 01/27/22 22:01 36.6 C 55 L 18 133/90 96 PG Care Time/CCT Total # of Minutes Spent Total Time Spent with Patient: Total time spent is greater than 50% in coordination of care (as documented) at patient's floor/unit and/or counseling patient: Coding Level of Care Code None Diagnoses History of laparoscopic appendectomy Z90.49
[2022-01-28 09:04] LABS: BUN Creatinine Ratio 5.9 (10-20); Calcium 8.9 mg/dl (8.5-10.1); Creatinine Clr Calc Pharmacy 26.7 ml/min; Est GFR (African American) 24.6 ml/min; Est GFR (Non-African American) 21.2 ml/min; Potassium 3.7 mmol/L (3.5-5.1)
--- NOTE | 2022-01-28 10:15 | Nephrology Progress Note ---
Date of Service January 28, 2022 Assessment & Plan (1) ISAIAH (acute kidney injury): Plan: * ISAIAH due to acute appendicitis and dehydration in the setting of NSAID administration * Afebrile overnight. Hemodynamically stable. Nonoliguric * Cr improved from 4.3 --> 3.79 --> 3.05 * Hypokalemia has corrected following IV KCl administration * No acute indication for HD at this time * Encourage oral hydration * Recheck PRP in am * Recommend avoid further NSAID (Toradol), Vancomycin administration * Recommend continued hospitalization until Cr ~ 2.0 and patient tolerating regular diet w/ regular BM's (2) Acute appendicitis: Plan: * Laparoscopy w/ appendectomy 01/25/22 * Appendix pathology report - pending (3) Endometriosis: Plan: * 01/25/22 Laparoscopy - incidentally found to have endometriosis s/p peritoneal biopsy and ablation of endometrial lesions Admission and Anticipated Discharge Date Admission Date: January 22, 2022 Subjective Miss Quintanilla was evaluated in her hospital room this morning. She reports discomfort at her abdominal incision sites. She is tolerating small amounts of a liquid diet and reports + flatus. Landrum catheter has been removed. She is voiding without difficulty Review of Systems Constitutional: no fever Eyes: no problem reported Ear, Nose, Mouth, Throat: no problem reported Respiratory: no dyspnea Cardiovascular: no chest pain, no palpitations and no edema Gastrointestinal: + nausea; no abdominal pain Genitourinary: no dysuria and no hematuria Neurologic: no confusion Physical Exam Constitutional: no acute distress Eyes: PERRL, conjunctivae normal, anicteric sclerae ENMT: external ear and nose normal, oropharynx normal Neck: trachea midline, no thyromegaly Respiratory: normal respiratory effort, lungs clear to auscultation Cardiovascular: RRR, no murmur, no edema Gastrointestinal (Abdomen): Inspection/Auscultation: abdomen normal to inspection and + hypoactive bowel sounds Percussion/Palpation: abdomen nontender Skin: no rashes, warm and dry Neurologic: awake; not confused Results & Data ([facility]) Vital Signs (Past 12 Hours) Vital Signs Temp Pulse Resp BP Pulse Ox 01/28/22 08:39 54 L 138/91 01/28/22 08:11 36.4 C L 55 L 16 143/92 H 97 Laboratory Results Laboratory Tests 01/28/22 08:17 Sodium 140 Potassium 3.7 D Chloride 102 Carbon Dioxide 31 BUN 18 Creatinine 3.05 H D Glucose 75 Diagnostic Findings 01/26/22 Urine for eosinophils: No significant number of eosinophils identified PG Care Time/CCT Total # of Minutes Spent Total Time Spent with Patient: Total time spent is greater than 50% in coordination of care (as documented) at patient's floor/unit and/or counseling patient: Coding Level of Care Code 52078 Subseq Hosp Care Lvl 3 Diagnoses ISAIAH (acute kidney injury) N17.9 Acute appendicitis K35.80 Endometriosis N80.9
--- NOTE | 2022-01-28 11:45 | Hospitalist Progress Note ---
Date of Service January 28, 2022 Assessment & Plan (1) Abdominal pain: Plan: 21-year-old white female with no significant underlying past medical history presented to the emergency department complaining of abdominal pain and low back pain with associated nausea and vomiting--clinically consistent with acute appendicitis -Hospitalized 01/18 through 01/20 with adenovirus. Developed mild back pain then -Since being home, abdominal pain worsened prompting her to come back to the emergency department on 01/22. -WBC count elevated at 19,000 with a left shift. In addition, procalcitonin slightly elevated at 0.66 with a CRP of 8.20. Had a low-grade fever of 100.0 F -CT scan of the abdomen and pelvis done on 01/22 showing no acute intra-abdominal process -Patient empirically treated with Zosyn/vancomycin and received 5 doses of Toradol for pain -Having persistent abdominal pain with inability to tolerate any oral intake -Plan was for repeat CT scan of the abdomen and pelvis with oral contrast but patient unable to tolerate oral contrast given vomiting (it was attempted) -Did reach out to radiology who reviewed initial CT scan and there is question of potential developing appendicitis at that time. Given her worsening presentation and inability to tolerate oral contrast for repeat CT scan, general surgery consulted -POD#[address] Ennis on with appendectomy and ablation of endometriosis (incidental finding) -Tolerating oral intake, pain control ordered, appears GS ordered Percocet, will change Dilaudid to only be utilized for breakthrough pain -Encourage ambulation/sitting up in chair, incentive spirometer use, pt needs to get up and walk halls (2) ISAIAH (acute kidney injury): Plan: -Creatinine uptrending on 01/25 in the setting of IV hydration, empiric v ancomycin and 5 doses of Toradol (Toradol and Vancomycin since discontinued) -Urine lytes obtained to help differentiate FENa as well as repeat UA and urine C&S -Nephrology consulted, seen by Dr. Llamas. Did note this could be an inflammatory response given underlying acute appendicitis with peritonitis. He will follow. Greatly appreciate assistance. -Patient converted to normosol postoperatively and close lab f/u -Avoid nephrotoxic agents (such as Toradol/NSAIDs and vancomycinno need at this point) -Creatinine slowly trending down (peaked at 4.3-->4.19-->3.79) -Repeat UA w/o protein and no evidence of infection -Repeat labs ordered for this afternoon and in AM by nephrology (3) Hypokalemia: Plan: -Potassium supplementation ordered, resolved Plan: Had a lengthy discussion this morning regarding importance of ambulation. Explained she is going to have post-operative pain, it is to be expected, but it is absolutely vital that she gets up and ambulates. Encouraged walking the halls and sitting up in chair as opposed to lying in bed. Changed Dilaudid back to only 0.5mg q4h for breakthrough pain. Ideally, would like to avoid the Dilaudid altogether. She seems extremely anxious. Spoke with patient's mother, Candi, she will continue to encourage pt get up and out of bed and needs to eat. At this time, tentatively planning for d/c home tomorrow, mother in agreement. Repeat BMP for tomorrow. Plan d/w Dr. Alston. Admission and Anticipated Discharge Date Admission Date: January 22, 2022 Subjective Patient seen on daily rounds this morning. Pt continues to complain of abdominal pain. She has not yet had a BM but continues to pass flatus. She denies n/v. She is tolerating oral intake but when her mother isn't in the room she is barely eating. Pt is tearful and states that she still has "so much pain" and is "afrai d it won't get better." She is voiding without issue. Has not been up walking the halls. She did sit up in the chair for a bit yesterday and ambulates independently back and forth from the bathroom. Review of Systems Review of Systems: All systems reviewed and are unremarkable except as noted in HPI and below Denies fevers, chills, headache, nasal congestion, sore throat, cough, chest pain, shortness of breath, palpitations, orthopnea, PND, v/d, constipation, dysuria, hematuria, frequency, back pain, joint pain or swelling, easy bruising or bleeding, skin lesions or rashes. Physical Exam Physical Exam: GENERAL: 21 yo well-developed, well-nourished WF. NAD. LUNGS: Clear to auscultation bilaterally. No W/R/R. CARDIOVASCULAR: Regular rate and rhythm. No M/G/R. ABDOMEN: Soft, diffusely tender to palp, nondistended, BS present in all 4 quad. EXTREMITIES: No edema. Non-tender. Peripheral pulses +2/4. NEUROLOGIC: A&O x3. PSYCHIATRIC: Cooperative. Appropriate mood and affect. SKIN: small lap incisions noted over abdomen, no other skin lesions/rashes appreciated Results & Data Results & Data ([facility]) Vital Signs (Past 12 Hours) Vital Signs Temp Pulse Resp BP Pulse Ox 01/28/22 11:06 57 L 143/88 H 01/28/22 11:02 36.4 C L 55 L 151/90 H 97 01/28/22 08:39 54 L 138/91 01/28/22 08:11 36.4 C L 55 L 16 143/92 H 97 Laboratory Results 01/27/22 08:09 01/28/22 08:17 PG Care Time/CCT Total # of Minutes Spent Total Time Spent with Patient: Total time spent is greater than 50% in coordination of care (as documented) at patient's floor/unit and/or counseling patient: Coding Level of Care Code 01451 Subseq Hosp Care Lvl 2 Diagnoses Abdominal pain R10.9 ISAIAH (acute kidney injury) N17.9 Hypokalemia E87.6
[2022-01-28] MEDS ORDERED: HYDROmorphone INJ 0.5 MG/0.5 ML SYR IV PRN (11:54)
[2022-01-29] MEDS: oxyCODONE/ACETAMINOPHEN 5mg/325mg TAB PO PRN ×2 (06:08→11:40)
[2022-01-29] MEDS: ONDANSETRON INJ 2 MG/ML 2 ML VIAL IV PRN (08:00)
[2022-01-29] MEDS: POLYETHYLENE (MIRALAX) 17 GM PACK PO SCH (08:09)
[2022-01-29 08:21] LABS: BUN Creatinine Ratio 7.1 (10-20); Calcium 9.3 mg/dl (8.5-10.1); Creatinine Clr Calc Pharmacy 34.2 ml/min; Est GFR (African American) 33.2 ml/min; Est GFR (Non-African American) 28.6 ml/min; Potassium 3.3 mmol/L (3.5-5.1)
[2022-01-29] MEDS ORDERED: POTASSIUM CHLORIDE CRTAB 20 MEQ TABCR PO STA (08:37)
--- NOTE | 2022-01-29 08:38 | Nephrology Progress Note ---
Date of Service January 29, 2022 Assessment & Plan (1) ISAIAH (acute kidney injury): Plan: * ISAIAH due to acute appendicitis and dehydration in the setting of NSAID administration * Afebrile overnight. Hemodynamically stable. Nonoliguric * Cr improved from 4.3 --> 3.79 --> 2.38 * Hypokalemia noted. Will provide 20 mEq KCl supplement this am * No acute indication for HD at this time * Encourage oral hydration * Recheck PRP in am * Recommend avoid further NSAID (Toradol), Vancomycin administration * Recommend continued hospitalization until Cr ~ 2.0 and patient tolerating regular diet w/ regular BM's * If discharge is anticipated, patient wishes to return home w/ parents. Recommend follow up w/ PCP within 7 days (2) Acute appendicitis: Plan: * Laparoscopy w/ appendectomy 01/25/22 * Appendix pathology c/w mild appendicitis (3) Endometriosis: Plan: * 01/25/22 Laparoscopy - incidentally found to have endometriosis s/p peritoneal biopsy and ablation of endometrial lesions Admission and Anticipated Discharge Date Admission Date: January 22, 2022 Subjective Miss Quintanilla was evaluated in her hospital room. She reports discomfort at her abdominal incision sites and had one episode of emesis this morning. Review of Systems Constitutional: no fever Eyes: no problem reported Ear, Nose, Mouth, Throat: no problem reported Respiratory: no dyspnea Cardiovascular: no chest pain, no palpitations and no edema Gastrointestinal: + vomiting; no abdominal pain Genitourinary: no dysuria and no hematuria Integumentary: no rash Neurologic: no confusion Physical Exam Constitutional: no acute distress Eyes: PERRL, conjunctivae normal, anicteric sclerae ENMT: external ear and nose normal, oropharynx normal Neck: trachea midline, no thyromegaly Respiratory: normal respiratory effort, lungs clear to auscultation Cardiovascular: RRR, no murmur, no edema Gastrointestinal (Abdomen): Inspection/Auscultation: abdomen normal to inspection and + hypoactive bowel sounds Percussion/Palpation: abdomen nontender Skin: no rashes, warm and dry Neurologic: awake; not confused Results & Data ([facility]) Vital Signs (Past 12 Hours) Vital Signs Temp Pulse Resp BP Pulse Ox 01/29/22 08:03 36.6 C 56 L 16 119/84 97 01/28/22 23:15 36.6 C 64 18 125/86 96 Laboratory Results Laboratory Tests 01/29/22 07:26 Sodium 140 Potassium 3.3 L Chloride 101 Carbon Dioxide 29 BUN 17 Creatinine 2.38 H D Glucose 84 Calcium 9.3 Diagnostic Findings 01/25/22 Surgical Pathology: A. Appendix (laparoscopic appendectomy): - Mild, focal acute appendicitis is seen. B. Peritoneum, "peritoneal biopsy for endometriosis" (biopsy): - Endometriosis is seen. - Please see comment. Comment: The tissue submitted as part B was initially level 3 for H and E stained slides. Microscopy reveals glands within fibrovascular tissue surrounded by spindled cells. Three immunohistochemical stains were obtained in this case to confirm the presence of endometriosis. The spindled cells are positive for CD10 and the epithelial cells of the glands are strongly positive for the estrogen receptor. They are negative for calretinin stain. Internal and external control cells are appropriately positive. Thus, this is in fact endometriosis. PG Care Time/CCT Total # of Minutes Spent Total Time Spent with Patient: Total time spent is greater than 50% in coordination of care (as documented) at patient's floor/unit and/or counseling patient: Coding Level of Care Code 37366 Subseq Hosp Care Lvl 3 Diagnoses ISAIAH (acute kidney injury) N17.9 Acute appendicitis K35.80 Endometriosis N80.9
[2022-01-29] MEDS ORDERED: POTASSIUM CHLORIDE / WTR 10 MEQ/100 ML PLCT IV SCH (08:45)
--- NOTE | 2022-01-29 10:33 | Discharge Summary ---
Date of Service January 29, 2022 Admission HPI Per Admitting Provider This is a 21-year-old female with no significant past medical history who came back to the emergency department today on account of worsening back pain. According to the patient, the pain started about a week prior to presentation. This made her come to the emergency department couple of days ago. Preliminary investigation for PID, gonorrhea, and STIs were negative and patient was subsequently discharged however according to the patient's mother her back pain worsened then accompanied with fever and chills so she brought her back to the hospital. Upon further evaluation, in the emergency department, WBC was found to be 19,000, repeat chest x-ray was normal. MRI of the lumbar spine also thoracic spine did not show any acute pathology. Blood cultures have been obtained, patient has been empirically started on IV antibiotics and will be admitted to the hospital for further investigation and further management. Principal Diagnosis 1. Acute appendicitis s/p lap appendectomy 2. ISAIAH (drug-induced + dehydration) 3. Endometriosis 4. Suspected mesenteric adenitis 5. Hypokalemia-replaced Discharge Exam GENERAL: 21 yo well-developed, well-nourished WF. NAD. LUNGS: Clear to auscultation bilaterally. No W/R/R. CARDIOVASCULAR: Regular rate and rhythm. No M/G/R. ABDOMEN: Soft, mild tenderness to palp, nondistended, BS present in all 4 quad. EXTREMITIES: No edema. Non-tender. Peripheral pulses +2/4. NEUROLOGIC: A&O x3. PSYCHIATRIC: Cooperative. Appropriate mood and affect. SKIN: small lap incisions noted over abdomen, no other skin lesions/rashes appreciated Discharge Data Allergies Allergy/AdvReac Type Severity Reaction Status Date / Time doxycycline Allergy Intermediate Rash Verified 01/18/22 01:10 lactose Allergy Intermediate Gastrointestinal Verified 01/18/22 01:10 Upset Consultations 01/22/22 07:03 ED Decision to Admit Stat 01/24/22 16:46 Consult Gynecology Routine 01/25/22 11:32 Consult Nephrology Routine 01/25/22 11:38 Consult General Surgery Routine Procedures Performed Operation Date: 01/25/22 13:00 Actual Procedures p Laparoscopic Appendectomy, Peritoneal Biopsy, Ablation of Endometriosis(Not Applicable) - Jason Ennis, DO Ordered Studies Chest X-Ray 01/22/22 03:10 XR chest 1V portable HISTORY: SEPSIS COMPARISON: Chest 01/18/2022. FINDINGS: No pneumothorax or no pleural effusions. The heart is normal in size. No evidence for pulmonary edema. No focal lung consolidations to suggest pneumonia. No acute rib fractures. IMPRESSION: No acute process. ACT 112: Negative or not required by law. Electronically signed by: Sean Chaudhry M.D. 01/22/2022 8:01 AM Lumbar Spine MRI 01/22/22 03:10 LUMBAR SPINE MRI WITH AND WITHOUT CONTRAST HISTORY: Low back pain. fever, severe pain TECHNIQUE: Multiplanar multisequence MRI of the lumbar spine was performed both before and after the intravenous administration of 5.5 cc of Gadavist contrast. COMPARISON: None. FINDINGS: For the purpose of the report the L5-S1 disc space will be located on axial image 23 of 25. No fracture or subluxation. Normal marrow signal intensity seen throughout the visualized osseous structures. Disc spaces are preserved. The conus terminates at the L1 level. No disc herniations. Paravertebral soft tissues are unremarkable. No epidural or paraspinal abscesses identified. Postcontrast sequences show no areas of abnormal enhancement. L1-L2: No significant central canal or neural foraminal narrowing. L2-L3: No significant central canal or neural foraminal narrowing. L3-L4: No significant central canal or neural foraminal narrowing. L4-L5: No significant central canal or neural foraminal narrowing. L5-S1: No significant central canal or neural foraminal narrowing. IMPRESSION: Normal lumbar spine MRI. No evidence for discitis/osteomyelitis. ACT 112: Negative or not required by law. Electronically signed by: Sean Chaudhry M.D. 01/22/2022 8:29 AM Thoracic Spine MRI 01/22/22 03:10 MR thoracic spine wo/w con HISTORY: 21 years-old Female fever, severe pain acute severe mid back pain with fever COMPARISON: MRI lumbar spine of same day, CTA chest 11/21/2021 TECHNIQUE: Multiplanar multisequence MRI of the thoracic spine was obtained both with and without the use of 5.5 cc Gadavist FINDINGS: There is no abnormal enhancement. The study is mildly motion degraded. No acute fracture spine abnormality identified. No acute fracture, subluxation, endplate erosion, bone marrow or soft tissue edema. The intervertebral disc spaces are well-maintained. No significant discogenic degeneration with spondylitic spurring. Signal within the imaged cervical and thoracic spinal cord appears normal. No lesions of the central canal. No significant central canal or neural foraminal narrowing. No epidural fluid collections. IMPRESSION: 1. Normal MRI of the thoracic spine. 2. No abnormal enhancement. ACT 112: Negative or not required by law. The above report was generated using voice recognition software. It may contain grammatical, syntax or spelling errors. Electronically signed by: Damián Melton M.D. 01/22/2022 10:21 AM Abdomen/Pelvis CT 01/24/22 13:15 CT abd pelvis wo con CLINICAL HISTORY: abdominal pain and back pain. COMPARISON STUDY: 01/18/2022 CT DOSE: 346.75 mGy.cm TECHNIQUE: Standard CT of the Abdomen and Pelvis was performed without IV contrast. The patient did not receive oral contrast. A dose lowering technique was utilized adhering to the principles of ALARA. FINDINGS: Lung base: The lung bases are clear. Abdominal cavity: There is no evidence for abdominal mass, adenopathy or ascites. Liver: The liver is homogeneous in attenuation on these limited noncontrast images.. Spleen: The spleen is homogeneous in attenuation on these limited noncontrast images. Pancreas: The pancreas is homogeneous in attenuation on these limited noncontrast images. Gall Bladder: The gallbladder is well distended with no evidence for cholelithiasis, wall thickening or pericholecystic edema.. Adrenal glands: The adrenal glands are normal in size and attenuation on these limited noncontrast images. Kidneys: The kidneys are homogeneous in attenuation on these limited noncontrast images. There is no evidence for gross renal mass, calculus or hydronephrosis bilaterally. Bowel: The bowel loops are normally placed within the abdomen and pelvis without evidence for dilatation or obstruction. There is no evidence for mass lesion. There are no inflammatory changes present. There is no evidence for free air. Bladder: There is no evidence for focal bladder wall thickening, calculus or diverticulum. However, there is mild diffuse thickening of bladder wall which can be seen with cystitis. : There is no evidence for pelvic mass or adenopathy. There has been interval development of moderate free fluid within the cul-de-sac. This is most likely physiologic from rupture of an ovarian cyst. Vasculature: There is no evidence for focal aneurysmal dilatation of the abdominal aorta. Osseous structures: There is no acute osseous pathology. IMPRESSION: 1. Interval development of moderate free fluid within the cul-de-sac, most characteristic of physiologic fluid from rupture of an ovarian cyst. 2. Mild thickening of bladder wall which can be seen with cystitis. 3. Otherwise, no acute intra-abdominal or pelvic abnormality on these limited noncontrast images. ACT 112: Negative or not required by law. Electronically signed by: Velasquez Paulino M.D. 01/24/2022 2:33 PM KUB X-Ray 01/26/22 23:30 KUB HISTORY: severe generalized abdominal pain COMPARISON: None. FINDINGS: Mildly dilated gas-filled loops of large or small bowel seen throughout the abdomen. This favors a mild ileus. There are surgical clips within the right lower quadrant suggesting prior appendectomy. Contrast is seen within the colon. Soft tissue density within the deep pelvis may represent a mildly distended bladder. No renal calculi. No ureteral calculi. No pneumoperitoneum or pneumatosis. IMPRESSION: 1. Mildly dilated gas-filled loops of large an small bowel seen throughout the abdomen suggestive of a mild postoperative ileus. 2. Soft tissue density within the deep pelvis may represent a mildly distended bladder. ACT 112: Negative or not required by law. Electronically signed by: Sean Chaudhry M.D. 01/27/2022 9:02 AM Hospital Course (1) Abdominal pain: 21-year-old white female with no significant underlying past medical history presented to the emergency department complaining of abdominal pain and low back pain with associated nausea and vomiting--clinically consistent with acute appendicitis -Hospitalized 01/18 through 01/20 with adenovirus. Developed mild back pain then -Since being home, abdominal pain worsened prompting her to come back to the emergency department on 01/22. -WBC count elevated at 19,000 with a left shift on admission. In addition, procalcitonin slightly elevated at 0.66 with a CRP of 8.20. Had a low-grade fever of 100.0 F -CT scan of the abdomen and pelvis done on 01/22 showing no acute intra-abdominal process -Patient empirically treated with Zosyn/vancomycin and received 5 doses of Toradol for pain -Having persistent abdominal pain with inability to tolerate any oral intake -Plan was for repeat CT scan of the abdomen and pelvis with oral contrast but patient unable to tolerate oral contrast given vomiting (it was attempted) -Did reach out to radiology who reviewed initial CT scan and there is question of potential developing appendicitis at that time. Given her worsening pr esentation and inability to tolerate oral contrast for repeat CT scan, general surgery consulted -POD#[address] Ennis on with appendectomy and ablation of endometriosis (incidental finding) -Tolerating oral intake, pain control ordered with Percocet which is managing her pain adequately (2) ISAIAH (acute kidney injury): -Creatinine uptrending on 01/25 in the setting of IV hydration, empiric vancomycin and 5 doses of Toradol (Toradol and Vancomycin since discontinued) -Urine lytes obtained to help differentiate FENa (of note, based on numbers alone appeared post obstructive but did not fit with clinical picture) -Nephrology consulted, seen by Dr. Llamas. Did note this could be an inflammatory response given underlying acute appendicitis with peritonitis. -Patient converted to normosol postoperatively but this was stopped on 01/26 -Avoided nephrotoxic agents (such as Toradol/NSAIDs and vancomycin) -Creatinine slowly trending down (peaked at 4.3-->4.19-->3.79-->3.05-->2.38) -Repeat UA w/o protein and no evidence of infection -Pt has been encouraged to orally rehydrate which explains relatively slow downtrend in creatinine (would correct faster with IVF) (3) Hypokalemia: -Potassium supplementation ordered -Encouraged to eat foods rich in potassium At this time, pt is doing exceptionally well. Her pain is managed, she has been up ambulating in the halls, she is tolerating oral intake and voiding without issue. Her renal function is responding slow but favorable in setting of oral hydration alone. I have discussed with patient's mother, Candi, and patient at length plan to discharge home today. She will continue to focus on maintaining adequate hydration. She is not to have any NSAIDs. May utilize Tylenol for mild pain and Percocet is being prescribed for moderate-severe pain. We did discuss that she needs to be cognizant of her APAP use while on the Percocet as it also contains Tylenol. She is not to exceed more than 4g of Tylenol in a 24 hour period. She verbalized understanding. Will plan for repeat labs on 02/02 with results to be CC'd to her family healthcare provider. She will f/u with Dr. Ennis in 2 weeks. She is to f/u with her family healthcare provider within 1 week of discharge. All questions answered. Above plan of care has been d/w Dr. Alston. Total Time Total Time Spent Total Time Spent (In Minutes): >30 minutes Discharge Plan Discharge Items Patient Disposition: Home - Self-Care Reason For Visit: BACK PAIN, FEVER Discharge Diagnosis: laparoscopic appendectomy Condition on Discharge: Good Activity: Per Instructions section Lifting: No more than 10 pounds Bathing Comment: may shower; no soaking in tubs/pools Exercise/Sports: Wait until after follow-up appointment Driving/Machine Use: no driving if taking any narcotics for pain Non-emergency contact: Primary Care Provider Call non-emergency contact if: you have any medication questions, your symptoms worsen, your pain is not controlled, your pain is concerning for you, you have a fever, your temperature is above 101.5, your wound has increased redness, your wound has increased drainage and your wound pain has increased Follow-up/Referrals: Jason Ennis, [Surgeon] - 02/13/22 9:45 am (follow up in clinic within 2 weeks) [facility] [Primary Care Provider] - Diet: Regular Ambulatory Orders: Basic Metabolic Panel (Routine) Timeframe: [id number] Location: Determined by Patient Ordered By: Lorie Hamilton Attending Provider Instructions: You were hospitalized due to abdominal/back pain, fever, elevated white blood cell count, and vomiting which was felt to be related to an infectious process. You were started on IV medications including nonsteroid anti-inflammatories (Toradol) as well as antibiotics (Zosyn and Vancomycin). The medications in addition to your dehydrated state lead to development of transient kidney injury. A CT scan of your abdomen was performed which demonstrated concern for appendicitis for which general surgery was consulted. During your procedure on 01/25, you were noted to have findings consistent with appendicitis, endometriosis, and a ruptured ovarian cyst. There was also some e nlarged lymph nodes which can be seen in mesenteric adenitis. The mesenteric adenitis (inflammation of the lymph nodes) could've been brought on by your recent bout of adenovirus. Your kidney function warranted close monitoring throughout your hospitalization. It has continued to trend in the right direction since your surgery. Today, your creatinine is 2.38. We would continue to encourage you to hydrate orally and will plan to repeat labwork on Friday 02/02. These labs will be forwarded to your family doctor for review. In the meantime, DO NOT USE any Ibuprofen products (including Advil, Aleve, Motrin). For pain you may use Tylenol over the counter for mild pain (scale 1-3). In the event of more severe pain, you are being prescribed Percocet. Please follow dose that corresponds to your pain scale on the label. DO NOT drive or operate any machinery while on this medication. Remember, Percocet contains Tylenol, do not exceed more than 4g of of Tylenol in a 24 hour period. You are to follow up with general surgery, Dr. Ennis, in 2 weeks. An appointment will be made on your behalf. You may shower normally. Leave the steri-strips in place, do not remove. They will eventually fall off on their own. You can follow a regular diet, focus on small meals frequently throughout the day and focus on protein and foods that are also rich in potassium. Protein is vital to healing. I am also prescribing you Zofran that you may use as needed if you feel nauseated. We would recommend that you contact your family healthcare provider today or tomorrow to schedule a follow up appointment within 1 week of discharge. In the event of any questions, please contact the nonemergency number listed on your discharge paperwork. Pending Studies at Discharge: Yes Studies:: surgical pathology Stand-Alone Forms: My [employer], Smoking Cessation Medications and DC Order Prescriptions: New oxycodone-acetaminophen [Percocet] 5-325 mg Tablet 1 - 2 tab PO Q6H PRN (Reason: pain) Qty: 15 RF: 0 Continued ondansetron 4 mg tablet,disintegrating 4 mg PO Q8H PRN (Reason: nausea and vomiting) 5 Days Qty: 20 RF: 0 norgestimate-ethinyl estradiol [Tri-Lo-Radha] 0.18/0.215/0.25 mg-25 mcg tablet 1 tab PO DAILY RF: 0 Discharge Orders: Discharge Order (Routine); Ordered 01/29/22 Ordered By: Lorie Noel/Other Patient Handouts: Abdominal Pain, ED Dehydration (Adult) Admission Data Admit Date/Time: 01/22/22 10:18 Attending Provider: Greg Alston Admit Provider: Zahira Rizzo Primary Care Provider: [facility] Other Providers: Sergei Vides ; Jeremías Hadley ; Seven Llamas ; Jason Ennis Other Interventions: Discharge Summary Assessment (RN) Last Done: 01/29/22 10:39 Coding Level of Care Code D/C DAY MANAGEMENT >30 MINS Diagnoses Abdominal pain R10.9 ISAIAH (acute kidney injury) N17.9 Hypokalemia E87.6
== END 2022-01-29 12:14 | disposition home or self-care (01) | DRG 342 ==
LOC: ED 01:59 → SUATTDRO 10:18 → EDINP 10:18 → 3N 12:17 → 2E 01-25 11:36 → 3N 01-26 17:23